=== PATIENT | male | born 1950 | race Caucasian/White ===

== ENCOUNTER → 2017-06-22 12:35 | Outpatient (CLI) | payer MEDICARE, SELFPAY ==
--- NOTE | 2017-06-22 12:38 | VDLE_ITS ---
Version 2 Reason For Study: F/U DVT RIGHT LEFT GSV is normal. GSV is normal. CFV is compressible, spontaneous, phasic, CFV is compressible, spontaneous, phasic, competent and demonstrates normal competent, and demonstrates normal augmentation. augmentation. FV is compressible, spontaneous, phasic, FV, POP V, T/P trunk and Gastroc veins are competent and demonstrates normal partially compressible with bright augmentation. intraluminal echoes consistant with chronic POP V is compressible, spontaneous, phasic, clot. competent and demonstrates normal PTV is compressible. augmentation. LT PerV is compressible. T/P Trunk is compressible. PTV is compressible. RT PerV is compressible. Procedure Exam performed in department. Interpretation Summary Deep veins of the right lower extremity are patent and compressible segmentally. There is no evidence of right lower extremity deep vein thrombosis. Valvular competence appears intact within the proximal deep venous system on the right . Chronic venous changes are noted in the left femoral vein, popliteal vein, tibio-peroneal trunk, and gastrocnemius vein, which are partially compressible and demonstrate bright intraluminal echogenicity. The remainder of the left lower extremity deep venous system is patent and compressible. The left common femoral vein is competent. The greater saphenous veins appear bilaterally patent and compressible segmentally. There has been resolution of the acute deep vein thrombosis in the right lower extremity since a prior study on 03/17/2017. Ordering Physician: Francisco Javier Neal Referring Physician: Francisco Javier Neal Performed By: Raquel Ward RVT
== END ==
PROVIDERS: Family Provider Family Medicine; PCP Family Medicine; Visit Provider Surgery
DX: M79.89 Other specified soft tissue disorders (principal); I83.10 Varicose veins of unspecified lower extremity with inflammation; M79.604 Pain in right leg; M79.605 Pain in left leg; Z86.718 Personal history of other venous thrombosis and embolism
CPT/HCPCS: 93970

== ENCOUNTER → 2017-07-02 14:34 | Outpatient (CLI) | payer MEDICARE, SELFPAY ==
--- NOTE | 2017-07-02 13:17 | LES_PTH ---
PATIENT: RUI DUFFY LOC: [facility] U#:[id number] AGE/SX: 74/M ROOM: RE07/02/[address]: Dr. Erlin Dutta MD : 1950 BED: DIS: SPEC #: [id number] RECD: 07/02/17 15:39 STATUS: HORTENSIA DAVISMegan #: [id number] JOSE: 07/02/17 13:[address]: Erlin Dutta DEPT: SURGICAL PATHOLOGY RECD BY: Vinicius Em ENTERED: 07/05/17 09:11 SP TYPE: Lesion OTHR DR: Dr. Ellis Gonzalez MD Tissues: Skin of back, NOS Procedures: Surgery Specimen Level III HEADER OPERATION: Excision of back skin lesion PRE-OP DIAGNOSIS: Back skin lesion TISSUE SUBMITTED: Back skin lesion MICROSCOPIC DIAGNOSIS Back skin lesion, biopsy: Epidermal inclusion cyst. SJ:kasi 07/06/17 MICROSCOPIC DESCRIPTION Slides are reviewed. GROSS DESCRIPTION Received in fixative is one container labeled with the patient's name and designated back skin lesion. The specimen consists of an irregular piece of soft tissue measuring 2 x 1 x 0.5 cm. The specimen is inked, bisected and submitted entirely in one cassette. / SJ:kasi 07/05/17 TC:5 CPT: 62205
== END ==
PROVIDERS: Family Provider Family Medicine; PCP Family Medicine; Visit Provider Surgery
DX: L72.0 Epidermal cyst (principal)
CPT/HCPCS: 88304; 88305

== ENCOUNTER → 2017-11-30 08:05 | Outpatient (CLI) | payer MEDICARE, SELFPAY ==
[2017-11-30 11:29] LABS: BUN 17 mg/dL (7-18); Glucose 129 mg/dL (74-106)
[2017-11-30 11:30] LABS: Anion Gap 9 (5-15); BUN/Creat Ratio 13.1 RATIO (10-20); Chloride 105 mmol/L (98-107); EST Glomerular Filtration Rate 58 mL/min (>60); Est Glom Filt Rate - Afr Amer 71 mL/min (>60); Sodium Level 141 mmol/L (136-145)
== END ==
PROVIDERS: Family Provider Family Medicine; PCP Family Medicine; Visit Provider Family Medicine
DX: Z00.00 Encounter for general adult medical examination without abnormal findings (principal); Z12.5 Encounter for screening for malignant neoplasm of prostate
CPT/HCPCS: 36415; 80048; 84153; G0103

== ENCOUNTER → 2018-04-28 08:48 | Outpatient (CLI) | payer MEDICARE, SELFPAY ==
--- NOTE | 2018-04-29 12:17 | PFT ---
INTRODUCTION: The patient is a 67-year-old male that presents for pulmonary function studies secondary to a diagnosis of COPD. Respiratory therapy reports good patient effort. Bronchodilators were used during testing. INTERPRETATION: Forced expiration spirometry demonstrates no evidence of a large airways obstructive ventilatory defect. There was no significant response to aerosolized bronchodilators. Spirograms are of good quality and plateau normally. The patient's flow volume loop reveals flattening of the inspiratory limb, which could be secondary to a variable extrathoracic process. Body plethysmography was performed and revealed lung volumes to be within normal limits. Diffusing capacity by single breath CO is also within normal limits. IMPRESSION: These pulmonary function studies are essentially within normal limits. There is, however, flattening of the inspiratory limb of the flow volume loop, which could be suggestive of a variable extrathoracic process. Clinical correlation is recommended.
== END ==
PROVIDERS: Family Provider Family Medicine; PCP Family Medicine; Referring Provider Internal Medicine Critical Care Medicine; Visit Provider Internal Medicine Critical Care Medicine
DX: R06.00 Dyspnea, unspecified (principal)
CPT/HCPCS: 94060; 94726; 94729

== ENCOUNTER → 2018-07-05 06:28 | Outpatient (CLI) | payer MEDICARE, SELFPAY ==
[2018-05-25 07:52] VITALS: BMI 25.3
--- NOTE | 2018-07-05 10:30 | STRESSREP_ITS ---
Stress Test Report Exercise myocardial perfusion stress test. 67-year-old man with a history of chest pain. Medications Fish oil aspirin Xarelto. Stress protocol: Resting EKG demonstrates normal sinus rhythm with a rate of 67 bpm normal intervals are noted occasional premature ventricular complexes present. Resting blood pressure 120/82 mmHg. The patient exercised according to regular Jim protocol for total duration of 8 minutes patient completed 2 minutes into stage III of the Jim protocol. The maximum heart rate attained was 146 bpm which wa s 96% of maximum predicted heart rate the maximum workload was 10.1 metabolic equivalents. At rest there were no ST or T wave changes noted suggest ischemia at peak exercise upsloping ST changes only were noted with no meet the criteria for ischemia. No clinical angina was noted the test was terminated due to leg fatigue. The resting blood pressure was 120/82 mmHg and a peak of 160/72 mmHg rate pressure product was 23,300. Myocardial perfusion protocol. 14.1 mCi of technetium 99m sestamibi was injected at rest. The patient exercised per Jim protocol at peak exercise 43.8 mCi of technetium 99m sestamibi was injected stress images were obtained stress and rest images were reconstructed and compared in the short axis vertical long horizontal long axis. Gated images were also obtained Perfusion SPECT analysis: Review of the stress images demonstrate normal uptake of tracer noted in all areas of the myocardium except for the inferior wall from base to mid segment. Demonstrated reduced perfusion on the stress and rest images to a similar extent. The above is suggestive of a previous inferior infarct. GI attenuation artifact cannot be completely excluded. Gated SPECT analysis: The gated ejection fraction is noted to be 67% with no wall motion abnormalities present. Conclusion: Exercise myocardial perfusion stress test with no obvious ischemia noted. Previous inferior infarct cannot be completely excluded.
== END ==
PROVIDERS: Family Provider Family Medicine; PCP Family Medicine; Referring Provider Family Medicine; Visit Provider Family Medicine
DX: R07.9 Chest pain, unspecified (principal)
CPT/HCPCS: 78452; 93017; A9500; A4216

== ENCOUNTER → 2019-03-07 09:21 | Outpatient (CLI) | payer MEDICARE, SELFPAY ==
[2018-05-25 07:52] VITALS: BMI 25.3
[2019-03-07 13:10] LABS: Anion Gap 5 (5-15); BUN 19 mg/dL (7-18); BUN/Creat Ratio 13.7 RATIO (10-20); Chloride 106 mmol/L (98-107); Cholesterol 168 mg/dL (200); Creatinine, Serum 1.39 mg/dL (0.70-1.30); EST Glomerular Filtration Rate 54 mL/min (>60); Est Glom Filt Rate - Afr Amer 65 mL/min (>60); Glucose 119 mg/dL (74-106); High Density Lipoprotein 32 mg/dL; PSA,Total - Annual Screen 1.28 ng/mL (0.00-4.00); Potassium 4.1 mmol/L (3.5-5.1); Sodium Level 139 mmol/L (136-145); Triglycerides 356 mg/dL; Very Low Density Lipoprotein 71 mg/dL (5-40)
== END ==
PROVIDERS: Family Provider Family Medicine; PCP Family Medicine; Referring Provider Family Medicine; Visit Provider Family Medicine
DX: Z00.00 Encounter for general adult medical examination without abnormal findings (principal); R07.9 Chest pain, unspecified; N40.0 Benign prostatic hyperplasia without lower urinary tract symptoms; Z12.5 Encounter for screening for malignant neoplasm of prostate
CPT/HCPCS: 36415; 80048; 80061; 84153; G0103

== ENCOUNTER 2019-06-19 07:54 | Day surgery (SDC) | payer MEDICARE, SELFPAY ==
[2019-06-07 08:05] VITALS: BMI 25.3
--- NOTE | 2019-06-07 08:09 | HP_ITS ---
Intake Vital Signs 06/07/19 BMI 25.3 06/07/19 Height 6 ft 3 in 06/07/19 Weight: 200 lb 06/07/19 BMI 25.0 06/07/19 BP 141/87 H 06/07/19 Blood Pressure Location Rt brachial 06/07/19 Position Sitting 06/07/19 Respiration 18 Intake Visit Reasons: cscope, blood clots Chief Complaint: Review test results Pediatric Speech Therapist Required: No Is patient in pain?: No Allergies gemfibrozil [From Lopid] Allergy (Severe, Verified 06/07/19 08:04) Unknown niacin [From Niaspan Extended-Release] Allergy (Severe, Verified 06/07/19 08:04) Unknown hydrocodone [From Vicodin] Allergy (Verified 06/07/19 08:04) Hives oxycodone [From Percocet] Allergy (Verified 06/07/19 08:04) Hives rosuvastatin [From Crestor] Adverse Reaction (Verified 06/07/19 08:04) Nausea Medications Multivitamins,Therapeutic [Multivitamin] 1 tab PO DAILY 02/10/16 [History Confirmed 06/07/19] aspirin 81 mg tablet,delayed release 81 mg PO QDAY 05/14/17 [History Confirmed 06/07/19] rivaroxaban 20 mg tablet 20 mg PO QDAY 06/12/17 [History Confirmed 06/07/19] vitamin B complex 1 tab PO DAILY 05/25/18 [History Confirmed 06/07/19] [facility] Medical History Impotence (Chronic) Peyronie's disease (Chronic) Hematuria (Acute) Rosacea (Chronic) Hyperglyceridemia (Acute) 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) Fatigue (Acute) Dyspnea (Chronic) Cough (Acute) Hypokalemia (Acute) Right ventricular dilation (Resolved) Mild concentric left ventricular hypertrophy (LVH) (Chronic) Spleen enlarged (Acute) Left leg DVT (Acute) Pulmonary embolism (Resolved) BPH (benign prostatic hyperplasia) (Chronic) Hilar adenopathy (Resolved) Mediastinal adenopathy (Resolved) Surgical History History of left knee surgery (Resolved) History of right knee surgery (Resolved) History of shoulder surgery (Resolved) History of hernia repair (Resolved) History of back surgery (Resolved) Family History Brother Heart disease A-fib Sister DVT (deep venous thrombosis) Social History (Updated 06/07/19 @ 08:09 by Erlin Dutta MD) Smoking Status: Never smoker Electronic Cigarette Use: not used second hand exposure: No alcohol intake: never substance use type: does not use caffeine: Yes what type of physical activity do you participate in: walking frequency: 3-4 times per week duration: 15-30 minutes/day seatbelt use: always HPI HPI HPI: RUI DUFFY, is a 68 M who presents to the office today for HPI HPI Surgical H&P: Yes HPI: RUI DUFFY, is a 68 M who presents to the office today for Evaluation for endoscopy. I last performed his screening colonoscopy on 01/12/2008. It was entirely negative he had no polyps no hemorrhoids and a smooth and small prostate. He has not been having any difficulties with his bowel movements his weight is been stable he has not noticed any blood. And he has no family history of colon cancer. The patient is on Xarelto and baby aspirin for history of blood clots in his legs but he has been able to been off of this in the past. ROS General General: No weight change, appetite, fatigue, colon cancer, breast cancer or weakness HEENT HEENT: No difficulty swallowing, eye injury, eye surgery, swollen glands or hoarseness Endo Endocrine: No thyroid disease, diabetes mellitus, thyroid cancer, Hair loss, heat intolerance or cold intolerance Skin Skin: No rash or changing moles Breast Breast: No left breast lump, right breast lump, nipple discharge, breast pain, abnormal mammogram, abnormal US or breast enlargement Musc Musculoskeletal: No back problems, arthritis, rheumatoid arthritis, gout or joint pain Cardio Cardiovascular: No murmur, pacemaker, heart disease, atrial fibrillation, high blood pressure, heart attack, heart stent, palpitations, shortness of breat with exertion or chest pain Psych Psychiatric: No depression, anxiety or hearing voices Resp Respiratory: No shortness of breath, No sleep apnea, No cough, No COPD, No asthma, No emphysema, No wheezing Gastro Gastrointestinal: No abdominal pain, No nausea or vomiting, No diarrhea, No constipation, No blood in stool, No acid reflux, No hemorrhoids, No ulcers, No gallbladder problem, No black,tarry stools Tee Hematologic: Yes blood thinners, No blood disorders, No bleeding, No anemia, Yes blood clots Neuro Neurologic: No system reviewed and no additional complaints, except as docu, No as per HPI, No abnormal walking, No abnormal hearing, No abnormal movements, No abnormal speech, No behavioral changes, No burning sensations, No confusion, No seizure-like activity, No unsteadiness, No dizziness, No localized weakness, No frequent falls, No headache(s), No lack of coordination, No loss of vision, No memory loss, Yes numbness, No other visual disturbances, No radiating pain, No restless legs, No sensory deficit, No fainting, Yes tingling, No tremor(s), No weakness, No other Exam Const General: no acute distress, well developed, well hydrated Orientation: oriented to person, oriented to place, oriented to time [facility] Head: normocephalic, atraumatic Ears: external ears normal Mouth: moist mucous membranes Eyes Sclera: sclerae normal Pupils: normal by confrontation Neck Neck: no lymphadenopathy noted Neck mass: No Thyroid: thyroid normal, symmetrical Chest Chest palpation & inspection: normal inspection of the chest Breast Palpation: No nipple discharge Resp Effort & Inspection: normal respiratory effort Auscultation: clear to auscultation bilaterally Percussion: percussion normal Cardio Rate: regular rate Rhythm: regular rhythm Heart Sounds: no murmurs GI Palpation: soft, no hepatosplenomegaly, no masses, nontender Rectal Exam: other Other: Rectal exam deferred. Extrem General: normal to inspection, no clubbing, cyanosis or edema Assessment & Plan Problems 1. Encounter for screening colonoscopy Z12.11 Plan I have discussed the above with the patient. I have offered the patient colonoscopy for evaluation. I have explained the risks/benefits of the procedure and described the procedure. I have discussed the risks with the patient, including but not limited to: infection, bleeding, perforation of the GI tract requiring emergency surgery, inability to complete the procedure, injury to any internal organs, complications of anesthesia, etc. - the patient understands and agrees to proceed. I have answered all the patient's questions to the patient's satisfaction and the patient has no further questions. The patient has been given instructions for the colon cleansing preparation. Coding Level of Care Code Off vis,new,level 3 Diagnoses Encounter for screening colonoscopy Z12.11 06/07/19 0809 <Electronically signed by Erlin engle MD> Date _ Erlin Dutta MD
[2019-06-19 08:15] VITALS: BP 130/98; PULSE 106; RESP 16; TEMP 36.3; O2SAT 96; BMI 24.9
[2019-06-19] MEDS: Lactated Ringers 1,000 ML 100 ML IV (08:35)
--- NOTE | 2019-06-19 09:00 | COLBX_PTH ---
PATIENT: RUI DUFFY LOC: [facility] U#:[id number] AGE/SX: 68/M ROOM: RE06/19/[address]: Dr. Erlin Dutta MD : 1950 BED: DIS: 06/19/2019 SPEC #: [id number] RECD: 06/19/19 09:46 STATUS: HORTENSIA SONU #: [id number] JOSE: 06/19/19 09:[address]: Erlin Dutta DEPT: SURGICAL PATHOLOGY RECD BY: Ivan Jesus ENTERED: 06/19/19 10:54 SP TYPE: COLON BX OTHR DR: Dr. Ellis Gonzalez MD Tissues: Ascending colon Procedures: Surgery Specimen Level IV HEADER OPERATION: Colonoscopy (MAC) PRE-OP DIAGNOSIS: Screening TISSUE SUBMITTED: Ascending colon polyp MICROSCOPIC DIAGNOSIS Ascending colon polyp, biopsy: Fragments of tubular adenoma. Fecal debris. AM:kasi 06/20/19 MICROSCOPIC DESCRIPTION Slides are reviewed. GROSS DESCRIPTION Received in fixative is one container labeled with the patient's name and designated ascending colon polyp. The specimen consists of multiple irregular fragments of light toth soft tissue that in aggregate measure 1 x 0.3 x 0.1 cm. The specimen is totally submitted in one cassette. / AM:kasi 06/19/19 TC:5 CPT: 86653
--- NOTE | 2019-06-19 09:02 | PCM.HP.BLA ---
History and Physical Date of Admission: 06/19/19 [facility] Medical Records Department [address] [place] [address] History and Physical 06/07/19 0809 MR#: [id number] Acct: [id number] Name: RUI DUFFY Rep #: [id number] : 1950 68 From: Erlin Dutta MD PCP: Ellis Gonzalez MD [place] [facility] [place] Intake Vital Signs 06/07/19 BMI 25.3 06/07/19 Height 6 ft 3 in 06/07/19 Weight: 200 lb 06/07/19 BMI 25.0 06/07/19 BP 141/87 H 06/07/19 Blood Pressure Location Rt brachial 06/07/19 Position Sitting 06/07/19 Respiration 18 Intake Visit Reasons: cscope, blood clots Chief Complaint: Review test results Tree Trimming Line Technician Required: No Is patient in pain?: No Allergies gemfibrozil [From Lopid] Allergy (Severe, Verified 06/07/19 08:04) Unknown niacin [From Niaspan Extended-Release] Allergy (Severe, Verified 06/07/19 08:04) Unknown hydrocodone [From Vicodin] Allergy (Verified 06/07/19 08:04) Hives oxycodone [From Percocet] Allergy (Verified 06/07/19 08:04) Hives rosuvastatin [From Crestor] Adverse Reaction (Verified 06/07/19 08:04) Nausea Medications Multivitamins,Therapeutic [Multivitamin] 1 tab PO DAILY 02/10/16 [History Confirmed 06/07/19] aspirin 81 mg tablet,delayed release 81 mg PO QDAY 05/14/17 [History Confirmed 06/07/19] rivaroxaban 20 mg tablet 20 mg PO QDAY 06/12/17 [History Confirmed 06/07/19] vitamin B complex 1 tab PO DAILY 05/25/18 [History Confirmed 06/07/19] [facility] Medical History Impotence (Chronic) Peyronie's disease (Chronic) Hematuria (Acute) Rosacea (Chronic) Hyperglyceridemia (Acute) 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) Fatigue (Acute) Dyspnea (Chronic) Cough (Acute) Hypokalemia (Acute) Right ventricular dilation (Resolved) Mild concentric left ventricular hypertrophy (LVH) (Chronic) Spleen enlarged (Acute) Left leg DVT (Acute) Pulmonary embolism (Resolved) BPH (benign prostatic hyperplasia) (Chronic) Hilar adenopathy (Resolved) Mediastinal adenopathy (Resolved) Surgical History History of left knee surgery (Resolved) History of right knee surgery (Resolved) History of shoulder surgery (Resolved) History of hernia repair (Resolved) History of back surgery (Resolved) Family History Brother Heart disease A-fib Sister DVT (deep venous thrombosis) Social History (Updated 06/07/19 @ 08:09 by Erlin Dutta MD) Smoking Status: Never smoker Electronic Cigarette Use: not used second hand exposure: No alcohol intake: never substance use type: does not use caffeine: Yes what type of physical activity do you participate in: walking frequency: 3-4 times per week duration: 15-30 minutes/day seatbelt use: always HPI HPI HPI: RUI DUFFY, is a 68 M who presents to the office today for HPI HPI Surgical H&P: Yes HPI: RUI DUFFY, is a 68 M who presents to the office today for Evaluation for endoscopy. I last performed his screening colonoscopy on 01/12/2008. It was entirely negative he had no polyps no hemorrhoids and a smooth and small prostate. He has not been having any difficulties with his bowel movements his weight is been stable he has not noticed any blood. And he has no family history of colon cancer. The patient is on Xarelto and baby aspirin for history of blood clots in his legs but he has been able to been off of this in the past. ROS General General: No weight change, appetite, fatigue, colon cancer, breast cancer or weakness HEENT HEENT: No difficulty swallowing, eye injury, eye surgery, swollen glands or hoarseness Endo Endocrine: No thyroid disease, diabetes mellitus, thyroid cancer, Hair loss, heat intolerance or cold intolerance Skin Skin: No rash or changing moles Breast Breast: No left breast lump, right breast lump, nipple discharge, breast pain, abnormal mammogram, abnormal US or breast enlargement Musc Musculoskeletal: No back problems, arthritis, rheumatoid arthritis, gout or joint pain Cardio Cardiovascular: No murmur, pacemaker, heart disease, atrial fibrillation, high blood pressure, heart attack, heart stent, palpitations, shortness of breat with exertion or chest pain Psych Psychiatric: No depression, anxiety or hearing voices Resp Respiratory: No shortness of breath, No sleep apnea, No cough, No COPD, No asthma, No emphysema, No wheezing Gastro Gastrointestinal: No abdominal pain, No nausea or vomiting, No diarrhea, No constipation, No blood in stool, No acid reflux, No hemorrhoids, No ulcers, No gallbladder problem, No black,tarry stools Tee Hematologic: Yes blood thinners, No blood disorders, No bleeding, No anemia, Yes blood clots Neuro Neurologic: No system reviewed and no additional complaints, except as docu, No as per HPI, No abnormal walking, No abnormal hearing, No abnormal movements, No abnormal speech, No behavioral changes, No burning sensations, No confusion, No seizure-like activity, No unsteadiness, No dizziness, No localized weakness, No frequent falls, No headache(s), No lack of coordination, No loss of vision, No memory loss, Yes numbness, No other visual disturbances, No radiating pain, No restless legs, No sensory deficit, No fainting, Yes tingling, No tremor(s), No weakness, No other Exam Const General: no acute distress, well developed, well hydrated Orientation: oriented to person, oriented to place, oriented to time [facility] Head: normocephalic, atraumatic Ears: external ears normal Mouth: moist mucous membranes Eyes Sclera: sclerae normal Pupils: normal by confrontation Neck Neck: no lymphadenopathy noted Neck mass: No Thyroid: thyroid normal, symmetrical Chest Chest palpation & inspection: normal inspection of the chest Breast Palpation: No nipple discharge Resp Effort & Inspection: normal respiratory effort Auscultation: clear to auscultation bilaterally Percussion: percussion normal Cardio Rate: regular rate Rhythm: regular rhythm Heart Sounds: no murmurs GI Palpation: soft, no hepatosplenomegaly, no masses, nontender Rectal Exam: other Other: Rectal exam deferred. Extrem General: normal to inspection, no clubbing, cyanosis or edema Assessment & Plan Problems 1. Encounter for screening colonoscopy Z12.11 Plan I have discussed the above with the patient. I have offered the patient colonoscopy for evaluation. I have explained the risks/benefits of the procedure and described the procedure. I have discussed the risks with the patient, including but not limited to: infection, bleeding, perforation of the GI tract requiring emergency surgery, inability to complete the procedure, injury to any internal organs, complications of anesthesia, etc. - the patient understands and agrees to proceed. I have answered all the patient's questions to the patient's satisfaction and the patient has no further questions. The patient has been given instructions for the colon cleansing preparation. Coding Level of Care Code Off vis,new,level 3 Diagnoses Encounter for screening colonoscopy Z12.11 06/07/19808 <Electronically signed by Erlin Dutta MD> Date Erlin Dutta MD 06/08/19 1036 <Electronically signed by Erlin Dutta MD> Date: Time: Erlin Dutta MD CC: Erlin Dutta MD; Ellis Gonzalez MD ~ Date Dictated: 06/07/19808 Date Transcribed: 06/07/19 1129 Icing Mixer: NR Signed I have re-examined the patient. There are no clinical changes since date of exam.
--- NOTE | 2019-06-19 09:34 | OP.COLON_ITS ---
Patient Name: Francisco Javier Obrien Procedure Date: 06/19/2019 9:09 AM Date of : 1950 Age: 68 Procedure: Colonoscopy Indications: Screening for colorectal malignant neoplasm Providers: Erlin Dutta MD Referring MD: Ellis Gonzalez MD Medicines: See the Anesthesia note for documentation of the administered medications Patient Profile: This is a 68 year old male. Refer to note in patient chart for documentation of history and physical. Last Colonoscopy: December 2007. Complications: No immediate complications. Procedure: Pre-Anesthesia Assessment: - Prior to the procedure, a History and Physical was performed, and patient medications and allergies were reviewed. The patient's tolerance of previous anesthesia was also reviewed. The risks and benefits of the procedure and the sedation options and risks were discussed with the patient. All questions were answered, and informed consent was obtained. Prior Anticoagulants: The patient has taken Xarelto (rivaroxaban), last dose was 7 days prior to procedure. ASA Grade Assessment: III - A patient with severe systemic disease. After reviewing the risks and benefits, the patient was deemed in satisfactory condition to undergo the procedure. After I obtained informed consent, the scope was passed under direct vision. Throughout the procedure, the patient's blood pressure, pulse, and oxygen saturations were monitored continuously. The colonoscope was introduced through the anus and advanced to the cecum, identified by appendiceal orifice and ileocecal valve. The colonoscopy was performed without difficulty. The patient tolerated the procedure well. The quality of the bowel preparation was good. Scope In: 9:20:03 AM Scope Withdrawal Time 0 hours 7 minutes 0 seconds Scope Out: 9:30:08 AM Total Procedure Duration Time 0 hours 10 minutes 5 seconds Findings: A 5 mm polyp was found in the ascending colon. The polyp was sessile. The polyp was removed with a hot snare. Resection and retrieval were complete. Multiple small-mouthed diverticula were found in the sigmoid colon. Non-bleeding internal hemorrhoids were found during retroflexion. The exam was otherwise without abnormality. Impression: - One 5 mm polyp in the ascending colon, removed with a hot snare. Resected and retrieved. - Diverticulosis in the sigmoid colon. - Non-bleeding internal hemorrhoids. - The examination was otherwise normal. Recommendation: - Discharge patient to home. - Resume previous diet. - Continue present medications. - Await pathology results. - Repeat colonoscopy in 5 years for surveillance. - Return to my office in 1 week. Procedure Code(s): --- Professional --- 38976, Colonoscopy, flexible; with removal of tumor(s), polyp(s), or other lesion(s) by snare technique Diagnosis Code(s): --- Professional --- Z12.11, Encounter for screening for malignant neoplasm of colon D12.2, Benign neoplasm of ascending colon K64.8, Other hemorrhoids K57.30, Diverticulosis of large intestine without perforation or abscess without bleeding CPT copyright 2017 [employer]. All rights reserved. The codes documented in this report are preliminary and upon school coordinator review may be revised to meet current compliance requirements. MD Erlin Frazier MD 06/19/2019 9:34:11 AM This report has been signed electronically. Number of Addenda: 0 Note Initiated On: 06/19/2019 9:09 AM
--- NOTE | 2019-06-19 09:34 | OP.CCLET_ITS ---
06/19/2019 Ellis Gonzalez MD [address] [place] [address] Re : Colonoscopy procedure for Francisco Javier Obrien Dear Dr. Gonzalez This procedure was performed on Wednesday, June 19, 2019. My impressions and recommendations are as follows: Impressions : - One 5 mm polyp in the ascending colon, removed with a hot snare. Resected and retrieved. - Diverticulosis in the sigmoid colon. - Non-bleeding internal hemorrhoids. - The examination was otherwise normal. Recommendations : - Discharge patient to home. - Resume previous diet. - Continue present medications. - Await pathology results. - Repeat colonoscopy in 5 years for surveillance. - Return to my office in 1 week. My findings are described in the full procedure note, which is enclosed. If I can be of further assistance, please feel free to contact me at Doctor phone number(s): , Fax: [phone], Work: . Sincerely, MD Erlin Frazier MD 06/19/2019 9:34:11 AM This report has been signed electronically.
[2019-06-19 09:35] VITALS: BP 116/70; BP 130/98; PULSE 88; RESP 16; TEMP 36.6; O2SAT 96
[2019-06-19 09:40] VITALS: BP 130/98; BP 147/89; PULSE 85; RESP 16; O2SAT 97
[2019-06-19 10:02] VITALS: BP 130/98; BP 138/95; PULSE 81; RESP 16; TEMP 36.3; O2SAT 100
[2019-06-19 10:23] VITALS: BP 130/98
== END 2019-06-19 10:32 | disposition home or self-care (01) ==
LOC: EN 07:54 → AC 07:56
PROVIDERS: PCP Family Medicine; Referring Provider Family Medicine; Visit Provider Surgery
PROC: 0DJD8ZZ Inspection of Lower Intestinal Tract, Via Natural or Artificial Opening Endoscopic (ICD-10-PCS; CPT 45378; principal; 2019-06-19 08:55)
DX: Z12.11 Encounter for screening for malignant neoplasm of colon (principal); D12.2 Benign neoplasm of ascending colon; K64.8 Other hemorrhoids; K57.30 Diverticulosis of large intestine without perforation or abscess without bleeding; Z79.01 Long term (current) use of anticoagulants; Z79.82 Long term (current) use of aspirin; Z86.718 Personal history of other venous thrombosis and embolism; Z88.5 Allergy status to narcotic agent
CPT/HCPCS: 45385; 88305; J7120; J1610; J2405

== ENCOUNTER → 2019-09-21 12:42 | Outpatient (CLI) | payer MEDICARE, SELFPAY ==
--- NOTE | 2019-09-21 12:57 | VDLE_ITS ---
Reason For Study: Chronic venous insufficiency RIGHT LEFT CFV is compressible, spontaneous, phasic, CFV is compressible, spontaneous, phasic, competent and demonstrates normal competent, and demonstrates normal augmentation. augmentation. FV is compressible, spontaneous, phasic, FV is compressible, spontaneous, phasic, competent and demonstrates normal competent and demonstrates normal augmentation. augmentation. POP V is compressible, spontaneous, phasic, POP V is compressible, spontaneous, phasic, competent and demonstrates normal competent and demonstrates normal augmentation. augmentation. T/P Trunk is compressible. T/P Trunk is compressible. PTV is compressible. PTV is compressible. RT PerV is compressible. LT PerV is compressible. SFJ is competent and measures 0.73 x 0.75 cm. Left FV, PopV are partially compressible with GSV proximal thigh measures 0.45 x 0.44 cm. bright intraluminal echoes noted consistent GSV at knee measures 0.50 x 0.51 cm. with chronic DVT. GSV INCOMPETENT throughout for greater than Thrombus filled varicose vein noted in the 0.5 seconds. anterior knee area. ASV proximal calf is INCOMPETENT for greater INCOMPETENT motor vehicle compliance analyst noted 12 cm above than 0.5 seconds and measures 0.42 x 0.47 cm. medial malleolus. SSV at junction is INCOMPETENT for greater SFJ is competent and measures 0.88 x 0.90 cm. than 0.5 seconds and measures 0.41 x 0.42 cm. GSV proximal thigh measures 0.61 x 0.63 cm. Procedure GSV above knee is INCOMPETENT for greater Exam performed in department. than 0.5 seconds. A preliminary report was called and/or faxed GSV at knee measures 0.70 x 0.71 cm. to Neal. GSV below knee is competent. SSV at junction is INCOMPETENT for greater than 0.5 seconds and measures 0.39 x 0.37 cm. Interpretation Summary Deep veins of the lower extremities are bilaterally patent and compressible segmentally. There is no evidence of deep vein thrombosis on either side. Valvular competence appears intact within the proximal deep venous systems bilaterally. The great saphenous veins appear bilaterally patent and compressible segmentally. Chronic venous changes are noted in the left femoral vein and popliteal vein, which are partially compressible and demonstrate bright intraluminal echogenicity. Sapheno- femoral junctions are bilaterally competent . The right great saphenous vein appears segmentally incompetent. The left great saphenous vein appears incompetent above the knee. The left great saphenous vein appears competent below the knee. Small saphenous veins are patent and incompetent bilaterally. The right accessory saphenous vein in the proximal calf is incompetent. An incompetent motor vehicle compliance analyst vein is noted in the left calf, located 12 centimeters proximal to the left medial malleolus. A thrombus-filled superficial varicosity is noted in the left anterior knee area. Ordering Physician: Francisco Javier Neal Referring Physician: Ellis Gonzalez Performed By: Santa Lopez RVT
== END ==
PROVIDERS: PCP Family Medicine; Referring Provider Surgery; Visit Provider Surgery
DX: I87.2 Venous insufficiency (chronic) (peripheral) (principal); I83.12 Varicose veins of left lower extremity with inflammation; I83.11 Varicose veins of right lower extremity with inflammation; I87.023 Postthrombotic syndrome with inflammation of bilateral lower extremity; I80.03 Phlebitis and thrombophlebitis of superficial vessels of lower extremities, bilateral
CPT/HCPCS: 93970

== ENCOUNTER → 2020-02-27 07:48 | Outpatient (CLI) | payer MEDICARE, SELFPAY ==
--- NOTE | 2020-02-27 07:51 | VDLE_ITS ---
Reason For Study: DVT RIGHT LEFT GSV is normal. GSV is normal. CFV is compressible, spontaneous, phasic, CFV is compressible, spontaneous, phasic, competent and demonstrates normal competent, and demonstrates normal augmentation. augmentation. FV is compressible, spontaneous, phasic, FV is compressible, spontaneous, phasic, competent and demonstrates normal competent and demonstrates normal augmentation. augmentation. POP V is compressible, spontaneous, phasic, POP V is compressible, spontaneous, phasic, competent and demonstrates normal competent and demonstrates normal augmentation. augmentation. T/P Trunk is compressible. T/P Trunk is compressible. PTV is compressible. PTV is compressible. RT PerV is compressible. LT PerV is compressible. Procedure Left FV, PopV are partially compressible with This is a venous duplex using B-mode, color bright intraluminal echoes noted consistent flow and spectral Doppler. with chronic DVT. Exam performed in department. Varicose vein in the anterior knee area is A preliminary report was called and/or faxed filled with bright intraluminal echoes to Ángel. consistent with chronic SVT. Vessel is small in size as compared to 09/21/2019. Interpretation Summary Deep veins of the lower extremities are bilaterally patent and compressible segmentally. There is no evidence of deep vein thrombosis on either side. Valvular competence appears intact within the proximal deep venous systems bilaterally. The great saphenous veins appear bilaterally patent and compressible segmentally. Chronic venous changes are noted in the left femoral vein and popliteal vein, which are partially compressible and demonstrate bright intraluminal echogenicity, and unchanged from a prior study on 09/21/2019. Chronic venous changes are noted involving a superficial varicosity near the left anterior knee. The acute superficial thrombophlebitis near the left anterior knee, which was previously noted on a prior study on 09/21/2019, appears to have resolved, leaving residual chronic changes. Ordering Physician: Francisc oJavier Neal Referring Physician: Ellis Gonzalez Performed By: Santa Lopez RVT
== END ==
PROVIDERS: PCP Family Medicine; Referring Provider Surgery; Visit Provider Surgery
DX: I83.10 Varicose veins of unspecified lower extremity with inflammation (principal); Z86.718 Personal history of other venous thrombosis and embolism
CPT/HCPCS: 93970

== ENCOUNTER 2021-09-08 12:26 | Inpatient (IN) | payer MEDICARE, SELFPAY ==
[2021-09-08] VITALS (23 sets, daily range): BP systolic 79–158; BP diastolic 52–125; PULSE 69–133; RESP 11–28; TEMP 36.4–37.1; O2SAT 93–199; BMI 26.1; BMI 24.7
--- NOTE | 2021-09-08 12:40 | EDS_ITS ---
HPI History of Present Illness Chief Complaint: Syncope Informant: patient Onset/Context/Timing Onset: Today Context: Sudden Onset Timing: Intermittent Quality: Syncopal episode Location: Generalized Worsened by: Standing Relieved by: Nothing Narrative Narrative: Patient presents with a syncopal episode that occurred today. Patient states he actually had 2 syncopal episodes today. Patient states that he felt weak while he was driving. Patient states that he pulled over and was walking around the car so that his could drive the car when he passed out. Patient states he fell to his knees. Patient was able to get back up and sit in the passenger seat. Patient states he passed out again while in the passenger seat. Patient denies any palpitations. Patient states he had 3 bowel movements today which were bloody. Patient states it was red blood. Patient is on Xarelto for chronic DVT. Patient states she was having some nausea and vomited in the back of the ambulance. Patient denies any nausea or abdominal pain currently. Patient states that yesterday he was working in his garden and he felt short of breath with this. Patient had a recent COVID-19 booster 2 days ago. Patient had a temperature of 100.2 after this. Patient denies any chest p ain. 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 Cough Dyspnea Fatigue Hematuria Hilar adenopathy Hyperglyceridemia Hypokalemia Impotence Left leg DVT Mediastinal adenopathy Mild concentric left ventricular hypertrophy (LVH) Peyronie's disease Pulmonary embolism Right ventricular dilation Rosacea Spleen enlarged Home Medications multivitamin with folic acid 1 tab PO DAILY 02/10/16 [History Last Taken 09/08/21 08:30] aspirin 81 mg tablet,delayed release 81 mg PO DAILY 05/14/17 [History Last Taken 09/08/21 08:30] rivaroxaban 20 mg tablet 20 mg PO DAILY@1800 06/12/17 [History Last Taken 09/07/21] acetaminophen 1,000 mg PO Q6H PRN 09/08/21 [History Last Taken 09/07/21 22:00] Allergy/AdvReac Type Severity Reaction Status Date / Time gemfibrozil [From Lopid] Allergy Severe Unknown Verified 07/17/20 14:28 niacin Allergy Severe Unknown Verified 07/17/20 14:28 [From Niaspan Extended-Release] rosuvastatin [From Crestor] AdvReac Nausea Verified 07/17/20 14:28 Family History Brother Heart disease A-fib Sister DVT (deep venous thrombosis) Surgical History History of back surgery History of colonoscopy (~05/2019) History of hernia repair History of left knee surgery History of right knee surgery History of shoulder surgery Social History Smoking Status: Never smoker Electronic Cigarette Use: not used second hand exposure: No alcohol intake: never substance use type: does not use caffeine: Yes what type of physical activity do you participate in: walking frequency: 3-4 times per week duration: 15-30 minutes/day seatbelt use: always ROS ROS ED Constitutional Constitutional ED: Reports fever(s); Denies chills Eyes Eyes: Denies blurry vision or change in vision ENT ENT ED: Denies rhinorrhea or sore throat Cardiovascular Cardiovascular: Denies chest pain or palpitations Respiratory/Chest Respiratory/Chest: Reports dyspnea; Denies cough Gastrointestinal Gastrointestinal: Reports nausea and vomiting Genitourinary Genitourinary ED: Denies dysuria or hematuria Musculoskeletal Musculoskeletal: Denies back pain or neck pain Integumentary Denies abscess or rash Neurologic Neurologic: Reports weakness; Denies headache(s) Allergic/Immunologic Allergic/Immunologic ED: Denies mouth swelling or urticaria EXAM Physical Exam Const Vital Signs: 09/08/21 12:27 09/08/21 12:32 Temperature 98.4 F Temperature Source Oral Pulse Rate 82 Respiratory Rate 15 Respiratory Pattern Normal Blood Pressure 121/89 H Blood Pressure Mean 99 Pulse Ox 99 Oxygen Delivery Method Room Air Positive well nourished and well developed General Appearance ED: well developed and NAD HEENT Reports moist mucous membranes Neck supple and no JVD Resp normal respiratory effort and clear to auscultation bilaterally Cardio regular rate and regular rhythm GI normal to inspection, nondistended, normoactive bowel sounds and non-tender Palpation: soft Neuro oriented x3, CN's II-XII intact bilaterally and no sensory deficits noted Sensorium / Orientation: alert Motor Exam: strength 5/5 throughout Psych mental status grossly normal MDM MDM MDM Narrative Medical decision making narrative: EKG was obtained. On my interpretation, it showed a normal sinus rhythm with a rate of 72. PA interval, QRS interval, and QTc intervals were all normal. [place] was normal. There are nonspecific ST-T wave changes. CBC was within normal limits. Pro time was 17.5. INR was 1.5. PTT was 30.6. Comprehensive metabolic profile showed a slightly elevated creatinine of 1.31. BUN was normal. Glucose was 168. Lipase was normal. High-sensitivity troponin was normal. Patient went to the bathroom and prior to going to the bathroom he had another syncopal episode. Patient started having bright red blood per rectum. Patient was placed back on the cot. Patient was taken back to his room. Patient was given IV fluids. Patient was typed and screened. Patient was ordered [facility]. Case was discussed with Dr. Mariano. He will follow-up with the patient. He recommended ordering a CTA of the abdomen and pelvis. This was ordered. Case was discussed with the hospitalist. She will admit the patient to ICU. Patient and family understood and were agreeable with the plan. All questions were answered. Lab Data Attestation: I reviewed the patient's lab results. Labs: Laboratory Results - last 24 hr 09/08/21 09/08/21 09/08/21 13:03 13:03 13:03 WBC 10.8 RBC 4.66 Hgb 13.9 Hct 42.0 MCV 90.1 MCH 29.8 MCHC 33.1 RDW Std Deviation 42.5 RDW Coeff of Rahat 13.0 Plt Count 168 MPV 10.8 Immature Gran % (Auto) 0.600 Neut % (Auto) 83.7 H Lymph % (Auto) 6.9 L [place] % (Auto) 7.6 Eos % (Auto) 0.7 Baso % (Auto) 0.5 Absolute Neuts (auto) 9.1 H Absolute Lymphs (auto) 0.75 L Nucleated RBC % 0 PT 17.5 H INR 1.5 APTT 30.6 Sodium 137 Potassium 3.9 Chloride 106 Carbon Dioxide 25.0 Anion Gap 6 BUN 15 Creatinine 1.31 H Estim Creat Clear Calc 61.82 Est GFR (MDRD) Af Amer 69 Est GFR (MDRD) Non-Af 57 L BUN/Creatinine Ratio 11.5 Glucose 168 H Calcium 8.6 Total Bilirubin 0.80 AST 26 ALT 32 Alkaline Phosphatase 70 Troponin I High Sens < 3 L Total Protein 6.9 Albumin 3.5 Globulin 3.4 Albumin/Globulin Ratio 1.0 Lipase 143 Blood Type Antibody Screen 09/08/21 13:09 WBC RBC Hgb Hct MCV MCH MCHC RDW Std Deviation RDW Coeff of Rahat Plt Count MPV Immature Gran % (Auto) Neut % (Auto) Lymph % (Auto) [place] % (Auto) Eos % (Auto) Baso % (Auto) Absolute Neuts (auto) Absolute Lymphs (auto) Nucleated RBC % PT INR APTT Sodium Potassium Chloride Carbon Dioxide Anion Gap BUN Creatinine Estim Creat Clear Calc Est GFR (MDRD) Af Amer Est GFR (MDRD) Non-Af BUN/Creatinine Ratio Glucose Calcium Total Bilirubin AST ALT Alkaline Phosphatase Troponin I High Sens Total Protein Albumin Globulin Albumin/Globulin Ratio Lipase Blood Type B POSITIVE Antibody Screen NEGATIVE Radiography Diagnostic Testing: Clinical Impression(s) from Imaging Studies Abdomen/Pelvis CTA 09/08/21 13:40 IMPRESSION: Fluid distention of the colon down to the rectum with fluid with an attenuation coefficient of higher than soft tissue suggests some possible mixture with blood products. Electronically Signed: Kenneth Driscoll MD at 14:39 EDT , EKG Initial EKG: Attestation: I personally reviewed and interpreted this EKG as follows: Interpretation: Sinus Rhythm (72) and Non-Specific ST Changes Prior EKG tracings: available for review Prior: Unchanged Critical Care Time Critical Care Time: Yes Critical care time (excluding procedures): 30-74 minutes (33), Including time spent:, Discussing w/Patient &/or Family/President [employer], Discussing w/Consultants, Arranging Admission or Transfer and Performing Direct Patient Care at Bedside Discharge Plan Dx/Rx/DC Orders Clinical Impression: Gastrointestinal hemorrhage, Syncope and collapse Disposition Disposition: Acute Care Hospital [facility] Discharge Date/Time: 09/08/21 15:33
--- NOTE | 2021-09-08 12:45 | EKG12_ITS ---
Test Reason : Blood Pressure : / mmHG Vent. Rate : 072 BPM Atrial Rate : 072 BPM P-R Int : 182 ms QRS Dur : 100 ms QT Int : 424 ms P-R-T Axes : 056 -13 019 degrees QTc Int : 464 ms Normal sinus rhythm Nonspecific ST and T wave abnormality Abnormal ECG Confirmed by YANETH MARTINEZ, YOSELYN ([id number]), production editor DEBBI DIXON ([id number]) on 09/10/2021 10:33:21 AM Referred By: Confirmed By:YOSELYN WOLFE MD
[2021-09-08] MEDS: 0.9% Normal Saline 1,000 ML 1000 ML IV (12:48)
[2021-09-08 13:11] LABS: Absolute Lymphocyte Count 0.75 X10^3/uL (0.83-4.51); Absolute Neutrophil Count 9.1 X10^3/uL (2.0-7.7); Basophil# 0.05 X10^3/uL; Basophil% 0.5 % (0-1); Eosinophil# 0.08 X10^3/uL; Eosinophils% 0.7 % (0-5); Hemoglobin 13.9 g/dL (13.0-16.5); Lymphocyte # 0.75 X10^3/ul (0.83-4.51); Lymphocyte % 6.9 % (19-41); Mean Corp Hgb Conc 33.1 g/dL (32-36); Mean Corpuscular Hgb 29.8 pg (27.0-32.0); Mean Corpuscular Volume 90.1 fL (80-94); Mean Platelet Vol. 10.8 fl (6.2-12.0); Monocyte# 0.82 X10^3/uL; Monocyte% 7.6 % (0-10); NRBC Flagged by Analyzer 0 % (0-5); Neutrophil # 9.07 X10^3/uL (2.7-7.7); Neutrophil % 83.7 % (47-70); Platelet Count 168 K/mm3 (150-450); RBC Distribution Width SD 42.5 fl (35.1-43.9); Red Blood Count 4.66 M/mm3 (4.6-6.2); White Blood Count 10.8 K/mm3 (4.4-11.0)
[2021-09-08 13:18] LABS: International Normalized Ratio 1.5; Prothrombin Time (Protime)PT. 17.5 SECONDS (11.7-14.9)
[2021-09-08 13:19] LABS: Partial Thromboplast Time 30.6 Seconds (24.1-36.2)
[2021-09-08 13:38] LABS: AST(SGOT) 26 U/L (15-37); Alanine Aminotransfer ALT/SGPT 32 U/L (16-61); Albumin, Serum 3.5 g/dL (3.2-5.0); Alkaline Phosphatase 70 U/L (45-117); Anion Gap 6 (5-15); BUN 15 mg/dL (7-18); BUN/Creat Ratio 11.5 RATIO (10-20); Calcium,Total 8.6 mg/dL (8.5-10.1); Chloride 106 mmol/L (98-107); Creatinine, Serum 1.31 mg/dL (0.70-1.30); EST Glomerular Filtration Rate 57 mL/min (>60); Est Glom Filt Rate - Afr Amer 69 mL/min (>60); Estimated Creatinine Clearance 61.82 ml/min; Globulin 3.4 g/dL (2.2-4.2); Glucose 168 mg/dL (74-106); Lipase 143 U/L (73-393); Potassium 3.9 mmol/L (3.5-5.1); Protein, Total 6.9 g/dL (6.4-8.2); Sodium Level 137 mmol/L (136-145); Troponin-I HS (w/2H Reflex) < 3 pg/mL (3.0-78.0)
--- NOTE | 2021-09-08 13:40 | CT_ITS ---
STUDY: CTA ABDOMEN AND PELVIS WITH CONTRAST REASON FOR EXAM: Male, 70 years old. GI bleed RADIATION DOSAGE (If Supplied By Facility): CTDIvol = ( 27.94 ) mGy, DLP = ( 846.34 ) mGycm TECHNIQUE: Transaxial images were obtained from the dome of the diaphragm to the symphysis pubis without oral contrast. IV 100mL Isovue-370 was administered. Sagittal and coronal images were reconstructed. Individualized dose optimization techniques were used for this CT. COMPARISON: Comparison is made with prior study dated 02/12/2016. FINDINGS: 1.7 cm right infrahilar lymph node. The visualized portions of the heart are within normal limits. There is decreased attenuation of the liver consistent with steatosis. Tiny solitary gallstone. Normal spleen. Normal pancreas. Normal bilateral adrenal glands. Normal right kidney. Normal left kidney. Normal visualized stomach. Normal small intestine. Fluid distention of the colon down to the rectum. The fluid measures a density greater than soft tissue. Possible blood products within the fluid. Scattered sigmoid diverticula. The appendix is visualized and appears normal. Normal abdominal aorta. Normal inferior vena cava. Normal retroperitoneum. Normal urinary bladder. There are prostatic calcifications. There is a small umbilical hernia containing fat. Small bilateral inguinal hernias containing fat worse on the right side. There are diffuse degenerative changes of the visualized lumbar spine. CT/CT ANGIO ABD&PEL W/O&W/DYE IMPRESSION: Fluid distention of the colon down to the rectum with fluid with an attenuation coefficient of higher than soft tissue suggests some possible mixture with blood products. Electronically Signed: Kenneth Driscoll MD at 14:39 EDT ,
--- NOTE | 2021-09-08 14:09 | PCM.HP.STD ---
HPI - General General Date of Admission: 09/08/21 Date of Service: 09/08/21 Chief Complaint: Syncope, BRBPR, recent COVID vaccination HPI Narrative The patient is a 70 y/o M w/ PMHx: CKD stage III unclear subtype, Hx VTE (DVT/PE), BPH who presents to the [facility] ED on 09/08/21 with history of syncopal event x2 on day of presentation noted to have initially occurred while he was driving noting that he felt weak prompting him to dross puller to change positions with his at which point unfortunately he passed out, falling to his knees reoccurring while he was seated in the passenger side as well with 3 episodes on day of presentation currently of bloody bowel movements specifically bright red blood with some mild nausea with episode of emesis while in the EMS on route. He does report abdominal cramping sensation, worse in the left lower quadrant and some tenderness with palpation which seems to ryne some following these bloody bowel movements. He does report that at initial onset he had a mix of diarrhea and blood. He notes a day prior while working in his garden he did feel mildly dyspneic. He states he did receive his COVID booster 2 days prior to current presentation and following this did have an elevated temperature 100.2. While in the ED patient had recurrent BRPBR while using the restroom with recurrent syncopal event. Work-up in the ED included T98.4, heart rate 82, BP 121/89, respiratory rate 15, 99% on room air, no orthostatics obtained while in the ED, CBC with WC 10.8, hemoglobin 13.9, platelet 168 with left shift and lymphopenia, coags with PT 17.5, INR 1.5, PTT 30.6, CMP with BUN/creat 15/1.31, glucose 168 otherwise not marked appearing, troponin less than 3, lipase 143, rapid COVID antigen negative, EKG w/ SR with nonspecific changes without acute evidence of ischemia, CTA abdomen and pelvis pending upon requested evaluation of patient, obtained per Dr. Mariano, GI recommendation. In the ED given serial episodes of bleeding and syncopal events, K-centra was ordered as well as T+S and patient was additionally administered vitamin K 10 mg IV x 1. Of note most recent endoscopies include 06/19/2019 colonoscopy with a 5 mm polyp noted in the ascending colon removed with a hot snare, diverticulosis in the sigmoid colon, nonbleeding internal hemorrhoids otherwise not marked appearing with recommended follow-up colonoscopy in [address] Dutta with pathology eventually noted for tubular adenoma. Upon admission did discuss case again with Dr. Mariano and did also contact and review case with Dr. Flores, animal technician and Dr. Dutta, general surgeon. 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 Cough Dyspnea Fatigue Hematuria Hilar adenopathy Hyperglyceridemia Hypokalemia Impotence Left leg DVT Mediastinal adenopathy Mild concentric left ventricular hypertrophy (LVH) Peyronie's disease Pulmonary embolism Right ventricular dilation Rosacea Spleen enlarged Home Medications multivitamin with folic acid 1 tab PO DAILY 02/10/16 [History Last Taken 09/08/21 08:30] aspirin 81 mg tablet,delayed release 81 mg PO DAILY 05/14/17 [History Last Taken 09/08/21 08:30] rivaroxaban 20 mg tablet 20 mg PO DAILY@1800 06/12/17 [History Last Taken 09/07/21] acetaminophen 1,000 mg PO Q6H PRN 09/08/21 [History Last Taken 09/07/21 22:00] Allergy/AdvReac Type Severity Reaction Status Date / Time gemfibrozil [From Lopid] Allergy Severe Unknown Verified 07/17/20 14:28 niacin Allergy Severe Unknown Verified 07/17/20 14:28 [From Niaspan Extended-Release] rosuvastatin [From Crestor] AdvReac Nausea Verified 07/17/20 14:28 Family History Brother Heart disease A-fib Sister DVT (deep venous thrombosis) Surgical History History of back surgery History of colonoscopy (~05/2019) History of hernia repair History of left knee surgery History of right knee surgery History of shoulder surgery Social History (Updated 09/08/21 @ 17:[address] Vicky Mcdonald MD) household members: spouse Smoking Status: Never smoker Electronic Cigarette Use: not used second hand exposure: No alcohol intake: never substance use type: does not use caffeine: Yes what type of physical activity do you participate in: walking frequency: 3-4 times per week duration: 15-30 minutes/day seatbelt use: always ROS ROS Narrative Admission Review of Systems: CONSTITUTIONAL: No weight loss, fever, chills, + weakness or fatigue. HEENT: Eyes: No visual loss, blurred vision, double vision or yellow sclerae. Ears, Nose, Throat: No hearing loss, sneezing, congestion, runny nose or sore throat. SKIN: No rash or itching, lesions, wounds. CARDIOVASCULAR: + Syncopal events. No chest pain, chest pressure or chest discomfort, palpitations, edema, orthopnea. RESPIRATORY: + Shortness of breath, No cough or sputum, wheezing, hemoptysis. GASTROINTESTINAL: + Anorexia, nausea, vomiting, loose stools with BRB, abdominal cramping, No melena per patient report. GENITOURINARY: No dysuria, frequency, urgency or retention. NEUROLOGICAL: + Syncopal events. No headache, paralysis, ataxia, numbness or tingling in the extremities, focal weakness, change in bowel or bladder control, seizure. MUSCULOSKELETAL: No muscle, back pain, joint pain or stiffness. HEMATOLOGIC: + anemia, bleeding or bruising. LYMPHATICS: No enlarged nodes. No history of splenectomy. PSYCHIATRIC: No history of depression or anxiety. ENDOCRINOLOGIC: No reports of sweating, cold or heat intolerance. No polyuria or polydipsia. ALLERGIES: No history of asthma, hives, eczema or rhinitis. Vital Signs Vital Signs Vital Signs: 09/08/21 12:27 09/08/21 12:32 Temperature 98.4 F Temperature Source Oral Pulse Rate 82 Respiratory Rate 15 Respiratory Pattern Normal Blood Pressure 121/89 H Blood Pressure Mean 99 Pulse Ox 99 Oxygen Delivery Method Room Air Weight Weight: 209 lb 3.499 oz Body Mass Index (BMI) 26.1 Physical Exam Narrative Physical Examination: General: Awake, alert, oriented x 3 and cooperative, laying in the ED bed, pale appearing, notes ongoing abdominal cramping, recent repeat syncopal event with bright red blood per rectum concurrently, notes he is currently nauseated. Skin: Pale, normal turgor, no icterus, no cyanosis. HEENT: AT/NC, EOMI, PERRLA, mildly dry MM, no carotid bruits or JVD noted. Lungs: Mildly diminished, greater bases, appropriate effort, no rales, ronchi or wheezing. Heart: Currently regular rate and rhythm; no gallop, rub audible. Abdomen: Soft, mild generalized discomfort with cramping to palpation however is significant more notable left lower quadrant discomfort with some mild guarding, no obvious distention, mildly hyperactive bowel sounds, difficult to assess HSM given discomfort. Extremities: No cyanosis, clubbing, or edema. Neurological: Patient awake, alert, oriented x 3, cognitive function intact; pupils equally reactive to light and accommodation, cranial nerves II-XII grossly normal, moving all 4 extremities, no focal deficits, strength severely global decrease secondary to acute presentation Psychiatric: Affect appears fatigued, ill-appearing, no acute evidence of depressive or anxiety feelings. Results Lab / Micro Data Result Diagrams: 09/08/21 16:05 09/08/21 13:03 Labs: Laboratory Results - last 24 hr 09/08/21 13:03: WBC 10.8, RBC 4.66, Hgb 13.9, Hct 42.0, MCV 90.1, MCH 29.8, MCHC 33.1, RDW Std Deviation 42.5, RDW Coeff of Rahat 13.0, Plt Count 168, MPV 10.8, Immature Gran % (Auto) 0.600, Neut % (Auto) 83.7 H, Lymph % (Auto) 6.9 L, [place] % (Auto) 7.6, Eos % (Auto) 0.7, Baso % (Auto) 0.5, Absolute Neuts (auto) 9.1 H, Absolute Lymphs (auto) 0.75 L, Nucleated RBC % 0 09/08/21 13:03: PT 17.5 H, INR 1.5, APTT 30.6 09/08/21 13:03: Sodium 137, Potassium 3.9, Chloride 106, Carbon Dioxide 25.0, Anion Gap 6, BUN 15, Creatinine 1.31 H, Estim Creat Clear Calc 61.82, Est GFR (MDRD) Af Amer 69, Est GFR (MDRD) Non-Af 57 L, BUN/Creatinine Ratio 11.5, Glucose 168 H, Calcium 8.6, Total Bilirubin 0.80, AST 26, ALT 32, Alkaline Phosphatase 70, Troponin I High Sens < 3 L, Total Protein 6.9, Albumin 3.5, Globulin 3.4, Albumin/Globulin Ratio 1.0, Lipase 143 Micro: Microbiology 09/08/21 13:03 Nasal Secretion SARS-CoV-2 Antigen (Rapid) - Final Assessment & Plan Assessment/Plan (1) Gastrointestinal hemorrhage: QUALIFIERS: GI bleed type/associated pathology: unspecified gastrointestinal hemorrhage type Qualified Code(s): K92.2 - Gastrointestinal hemorrhage, unspecified (2) Syncope and collapse: (3) Acute blood loss anemia: PLAN: The patient is a 70 y/o M w/ PMHx: CKD stage III unclear subtype, Hx VTE (DVT/PE), BPH who presents to the [facility] ED on 09/08/21 with history of syncopal event x2 on day of presentation noted to have initially occurred while he was driving noting that he felt weak prompting him to dross puller to change positions with his at which point unfortunately he passed out, falling to his knees reoccurring while he was seated in the passenger side as well with 3 episodes on day of presentation currently of bloody bowel movements specifically bright red blood with some mild nausea with episode of emesis while in the EMS on route. #1. Acute Syncopal events suspected secondary to Acute GI Bleed w/ resultant Acute Blood Loss Anemia Suspected: Will admit to the ICU, maintain on IVFs, ED initiated and planned ongoing reversal of coagulopathy, obtain serial H+H q 4 hours, obtain T+S per ED already with T+C if appropriate, maintain on fall precautions, orthostatic requested however suspect these will not be able to be obtained given patient's significant symptomatic nature with any significant positional changes, IV PPI, GI and ICU consulted, pending. CTA Abd/Pelv pending per ED upon evaluation of patient. #2. Hyperglycemia: Admission glucose 168, will obtain hemoglobin A1c be cautious, certainly could be stress response. #3. Hx VTE (Hx PE and noted Chronic DVT, Femoral: Patient on xarelto, being administered K-centra, T+S pending. Pending GI evaluation #4. Chronic Kidney Disease Stage III, unclear subtype: Admission BUN/Cr 15/1.31, baseline renal function 1.2-1.3, repeat BMP in AM. #5. BPH: Not on any regimen, defer to outpatient. #6. Hyperlipidemia: Not on regimen, intolerance noted. #7. DVT prophylaxis: SCDs, holding Xarelto as noted with reversal and continued evaluation #1. #8. CODE status: Patient HCPESCOBAR is his who is and living will is currently in place. Discussed CODE status at length including difference between FULL code, DNR-CCA and DNR-CC status. Following discussions about the differences in these status, requested Full Code status. Advanced Care Planning Face to Face Time: 16 minutes. Charges/Coding Visit Charges Inpatient E&M: 17535 Init Hosp L3 Procedures Hospitalists Procedures: 72264 Advncd Care Plan 30 Min
--- NOTE | 2021-09-08 14:29 | NURSING ---
ICU WHITE GASTROINTESTINAL BLEEDING, SYNCOPE
--- NOTE | 2021-09-08 14:49 | NURSING ---
ICU 1
[2021-09-08 15:09] LABS: Reflex Troponin-HS? (from REC) Y
[2021-09-08] MEDS: Ondansetron 4 MG/2 ML Vial IV (15:19)
[2021-09-08] MEDS: proCHLORPERazine 10 MG/2 ML Vial 5 MG IV (15:52)
[2021-09-08] MEDS: 0.9% Normal Saline 1,000 ML 125 ML IV ×2 (15:56→19:58)
[2021-09-08] MEDS: Lidocaine 4% 5 ML Ampul 2 ML INHALATION (16:12)
[2021-09-08 16:23] LABS: Hematocrit 32.8 % (40-54); Hemoglobin 11.1 g/dL (13.0-16.5)
[2021-09-08] MEDS: Oxymetazoline 0.05% 1 SPRAY SPRAY.BTL 2 SPRAY NASAL (16:23)
[2021-09-08 16:40] LABS: Troponin-I HS < 3 pg/mL (3.0-78.0)
--- NOTE | 2021-09-08 17:01 | PCM.CONS.GEN ---
Assessment & Plan Assessment/Plan (1) Acute blood loss anemia: PLAN: We will do an upper and lower endoscopy to to hopefully find the etiology of his acute GI bleed. He was explained alternatives, risk, benefits including not withstanding bleeding, infection, sepsis, perforation, need for emergency or . Have an ASA of 3. HPI Consult Data Date of Consult: 09/08/21 HPI Narrative HPI Narrative: RUI DUFFY, is a 70 M who presents via EMS as likely having 2 syncopal episodes. Patient said he woke up this morning without any problems and went to have his normal bowel movement and he saw a little bit of blood. He was not concerned because he has a history of hemorrhoids and had seen a little bit of blood previously and attributed to his blood thinner that he takes with has a history of chronic DVT. However approximately 15 minutes later he had a large bowel movement. He attempted to drive over to his son's house which is about 20 minutes away and had a syncopal episode. He pulled over on the side of the road and had another syncopal event after bowel movement. Prior to him coming to the hospital he had 3 bowel movements that were bloody mostly red in content. Patient states he was having some nausea and vomited in the back of the ambulance. Patient denies any nausea or abdominal pain currently. Patient states that yesterday he was working in his garden and he felt short of breath with this. Patient had a recent COVID-19 booster 2 days ago. Patient had a temperature of 100.2 after this. Patient denies any chest pain. In the ED with her to have a hemoglobin of 11.1. Baseline hemoglobin is 15. His BUN/creatinine ratio was 15/1.3. He has stage III CKD. He does take a baby aspirin on a daily basis. Currently at this time he is in ICU and he is received Kcentra, vitamin K and fresh frozen plasma is waiting for transfusion. His blood pressure is 103/65 with a heart rate ranging from 90 to 105. 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 vein Cough Dyspnea Fatigue Hematuria Hilar adenopathy Hyperglyceridemia Hypokalemia Impotence Left leg DVT Mediastinal adenopathy Mild concentric left ventricular hypertrophy (LVH) Peyronie's disease Pulmonary embolism Right ventricular dilation Rosacea Spleen enlarged Home Medications multivitamin with folic acid 1 tab PO DAILY 02/10/16 [History Last Taken 09/08/21 08:30] aspirin 81 mg tablet,delayed release 81 mg PO DAILY 05/14/17 [History Last Taken 09/08/21 08:30] rivaroxaban 20 mg tablet 20 mg PO DAILY@1800 06/12/17 [History Last Taken 09/07/21] acetaminophen 1,000 mg PO Q6H PRN 09/08/21 [History Last Taken 09/07/21 22:00] Allergy/AdvReac Type Severity Reaction Status Date / Time gemfibrozil [From Lopid] Allergy Severe Unknown Verified 07/17/20 14:28 niacin Allergy Severe Unknown Verified 07/17/20 14:28 [From Niaspan Extended-Release] rosuvastatin [From Crestor] AdvReac Nausea Verified 07/17/20 14:28 Family History Brother Heart disease A-fib Sister DVT (deep venous thrombosis) Surgical History History of back surgery History of colonoscopy (~05/2019) History of hernia repair History of left knee surgery History of right knee surgery History of shoulder surgery Social History (Updated 09/08/21 @ 17:[address] Vicky Mcdonald MD) household members: spouse Smoking Status: Never smoker Electronic Cigarette Use: not used second hand exposure: No alcohol intake: never substance use type: does not use caffeine: Yes what type of physical activity do you participate in: walking frequency: 3-4 times per week duration: 15-30 minutes/day seatbelt use: always ROS Cardiovascular Cardiovascular: Reports lightheadedness and nausea Gastrointestinal Gastrointestinal: Reports hematochezia Physical Exam Const alert General Appearance: cooperative Orientation / Consciousness: oriented to person HEENT hearing grossly normal bilaterally Head and Scalp: normal to inspection Face and Sinus: face symmetric Nose: external nose normal Mouth: oral and palatal mucosa normal Eyes conjunctivae normal General Eye: normal appearance of both eyes Neck full ROM General: normal visual inspection Lymph Lymphatic: no lymphadenopathy noted Chest inspection of chest normal and palpation of chest normal Chest: symmetrical chest wall rise Resp normal respiratory effort Effort and Inspection: able to speak in complete sentences Cardio Cardio Narrative: Tachycardia GI non-distended Percussion: normal to percussion Rectal Exam: deferred Neuro Speech: speech normal Gait (Neuro): normal gait Lab / Micro Data Result Diagrams: 09/08/21 16:05 09/08/21 13:03 Labs: Laboratory Results - last 24 hr 09/08/21 13:03: WBC 10.8, RBC 4.66, Hgb 13.9, Hct 42.0, MCV 90.1, MCH 29.8, MCHC 33.1, RDW Std Deviation 42.5, RDW Coeff of Rahat 13.0, Plt Count 168, MPV 10.8, Immature Gran % (Auto) 0.600, Neut % (Auto) 83.7 H, Lymph % (Auto) 6.9 L, [place] % (Auto) 7.6, Eos % (Auto) 0.7, Baso % (Auto) 0.5, Absolute Neuts (auto) 9.1 H, Absolute Lymphs (auto) 0.75 L, Nucleated RBC % 0 09/08/21 13:03: PT 17.5 H, INR 1.5, APTT 30.6 09/08/21 13:03: Sodium 137, Potassium 3.9, Chloride 106, Carbon Dioxide 25.0, Anion Gap 6, BUN 15, Creatinine 1.31 H, Estim Creat Clear Calc 61.82, Est GFR (MDRD) Af Amer 69, Est GFR (MDRD) Non-Af 57 L, BUN/Creatinine Ratio 11.5, Glucose 168 H, Calcium 8.6, Total Bilirubin 0.80, AST 26, ALT 32, Alkaline Phosphatase 70, Troponin I High Sens < 3 L, Total Protein 6.9, Albumin 3.5, Globulin 3.4, Albumin/Globulin Ratio 1.0, Lipase 143 09/08/21 13:09: Blood Type B POSITIVE, Antibody Screen NEGATIVE 09/08/21 13:09: Crossmatch See Detail 09/08/21 16:05: Troponin I High Sens < 3 L 09/08/21 16:05: Hgb 11.1 L, Hct 32.8 L Micro: Microbiology 09/08/21 13:03 Nasal Secretion SARS-CoV-2 Antigen (Rapid) - Final Radiology Impression Abdomen/Pelvis CTA 09/08/21 13:40 IMPRESSION: Fluid distention of the colon down to the rectum with fluid with an attenuation coefficient of higher than soft tissue suggests some possible mixture with blood products. Electronically Signed: Kenneth Driscoll MD at 14:39 EDT , Charges/Coding Visit Charges Inpatient E&M: 47517 Init Hosp L2
--- NOTE | 2021-09-08 17:27 | EKG12_ITS ---
Test Reason : Blood Pressure : / mmHG Vent. Rate : 091 BPM Atrial Rate : 091 BPM P-R Int : 172 ms QRS Dur : 094 ms QT Int : 362 ms P-R-T Axes : 058 -28 -21 degrees QTc Int : 445 ms Normal sinus rhythm Inferior infarct , age undetermined , cannot be excluded Nonspecific ST and T wave abnormality Abnormal ECG Confirmed by YANETH MARTINEZ, YOSELYN ([id number]), editorial assistant DEBBI DIXON ([id number]) on 09/11/2021 12:49:27 PM Referred By: AVELINA Confirmed By:YOSELYN WOLFE MD
--- NOTE | 2021-09-08 17:40 | NURSING ---
Rapid Response called at 1627 due to patient becoming unresponsive after being sat up for NG insertion. Staff responded along with Dr. Vicky Mcdonald. This RN gave Dr. Mcdonald report about events leading up to rapid response. Dr. Mariano also arrived and stated to not insert NG tube and decided to take pt. to ambulatory to be scoped.
--- NOTE | 2021-09-08 17:44 | NURSING ---
Pt. left floor with typesetters printer at 1710.
[2021-09-08] MEDS: 0.9% Normal Saline (Pres. free 10 ML Vial (18:41)
[2021-09-08] MEDS: Epinephrine (1 mg/ml) 1 MG/ML VIAL (18:41)
--- NOTE | 2021-09-08 18:59 | OP.EGD_ITS ---
Patient Name: Francisco Javier Obrien Procedure Date: 09/08/2021 5:27 PM Date of : 1950 Age: 70 Procedure: Upper GI endoscopy Indications: Hematemesis, Hematochezia Providers: Karson Mariano DO Medicines: Monitored Anesthesia Care Patient Profile: This is a 70 year old male. Refer to note in patient chart for documentation of history and physical. Patient has symptoms of acute vomiting. Complications: No immediate complications. Procedure: Pre-Anesthesia Assessment: - Prior to the procedure, a History and Physical was performed, and patient medications and allergies were reviewed. The risks and benefits of the procedure and the sedation options and risks were discussed with the patient. All questions were answered and informed consent was obtained. Patient identification and proposed procedure were verified by the physician. Mental Status Examination: normal. Respiratory Examination: clear to auscultation. Prophylactic Antibiotics: The patient does not require prophylactic antibiotics. Prior Anticoagulants: The patient has taken no previous anticoagulant or antiplatelet agents. After reviewing the risks and benefits, the patient was deemed in satisfactory condition to undergo the procedure. The anesthesia plan was to use moderate sedation / analgesia (conscious sedation). Immediately prior to administration of medications, the patient was re-assessed for adequacy to receive sedatives. The heart rate, respiratory rate, oxygen saturations, blood pressure, adequacy of pulmonary ventilation, and response to care were monitored throughout the procedure. The physical status of the patient was re-assessed after the procedure. After obtaining informed consent, the endoscope was passed under direct vision. Throughout the procedure, the patient's blood pressure, pulse, and oxygen saturations were monitored continuously. The pediatric colonoscope was introduced through the mouth, and advanced to the third part of duodenum. The upper GI endoscopy was accomplished without difficulty. The patient tolerated the procedure well. Scope In: 5:53:54 PM Scope Out: 5:56:16 PM Total Procedure Duration Time 0 hours 2 minutes 22 seconds Findings: LA Grade C (one or more mucosal breaks continuous between tops of 2 or more mucosal folds, less than 75% circumference) esophagitis with no bleeding was found 34 to 40 cm from the incisors. The entire examined stomach was normal. A medium-sized hiatal hernia was present. The second portion of the duodenum was normal, execpt for duodenitis Impression: - LA Grade C reflux esophagitis. - Normal stomach. - Medium-sized hiatal hernia. - Normal second portion of the duodenum. - No specimens collected. Recommendation: - [facility]. - Clear liquid diet. - The patient has taken no previous anticoagulant or antiplatelet agents. Procedure Code(s): --- Professional --- 08319, Esophagogastroduodenoscopy, flexible, transoral; diagnostic, including collection of specimen(s) by brushing or washing, when performed (separate procedure) CPT copyright 2017 [employer]. All rights reserved. The codes documented in this report are preliminary and upon solderer torch review may be revised to meet current compliance requirements. Karson Mariano DO 09/08/2021 6:59:33 PM This report has been signed electronically. Number of Addenda: 1 Note Initiated On: 09/08/2021 5:27 PM Addendum Number: 1 Addendum Date: 01/23/2022 6:22:14 AM MAC was used as sedation for this procedure. Karson Mariano DO 01/23/2022 6:22:18 AM This report has been signed electronically.
--- NOTE | 2021-09-08 19:00 | OP.CCLET_ITS ---
01/23/2022 Ellis Gonzalez MD [address] [place] [address] Re : Upper GI endoscopy procedure for Francisco Javier Obrien Dear Dr. Gonzalez This procedure was performed on Wednesday, September 08, 2021. My impressions and recommendations are as follows: Impressions : - LA Grade C reflux esophagitis. - Normal stomach. - Medium-sized hiatal hernia. - Normal second portion of the duodenum. - No specimens collected. Recommendations : - [facility]. - Clear liquid diet. - The patient has taken no previous anticoagulant or antiplatelet agents. My findings are described in the full procedure note, which is enclosed. If I can be of further assistance, please feel free to contact me at . Sincerely, Karson Mariano, 09/08/2021 6:59:33 PM This report has been signed electronically.
--- NOTE | 2021-09-08 19:17 | OP.COLON_ITS ---
Patient Name: Francisco Javier Obrien Procedure Date: 09/08/2021 5:56 PM Date of : 1950 Age: 70 Procedure: Colonoscopy Indications: Hematochezia Providers: Karson Mariano DO Medicines: Monitored Anesthesia Care Patient Profile: This is a 70 year old male. Refer to note in patient chart for documentation of history and physical. Patient has symptoms of acute vomiting. Last Colonoscopy: 3 years ago. Complications: No immediate complications. Procedure: Pre-Anesthesia Assessment: - Prior to the procedure, a History and Physical was performed, and patient medications and allergies were reviewed. The risks and benefits of the procedure and the sedation options and risks were discussed with the patient. All questions were answered and informed consent was obtained. Patient identification and proposed procedure were verified by the physician. Mental Status Examination: normal. Respiratory Examination: clear to auscultation. Prophylactic Antibiotics: The patient does not require prophylactic antibiotics. Prior Anticoagulants: The patient has taken no previous anticoagulant or antiplatelet agents. After reviewing the risks and benefits, the patient was deemed in satisfactory condition to undergo the procedure. The anesthesia plan was to use moderate sedation / analgesia (conscious sedation). Immediately prior to administration of medications, the patient was re-assessed for adequacy to receive sedatives. The heart rate, respiratory rate, oxygen saturations, blood pressure, adequacy of pulmonary ventilation, and response to care were monitored throughout the procedure. The physical status of the patient was re-assessed after the procedure. After I obtained informed consent, the scope was passed under direct vision. Throughout the procedure, the patient's blood pressure, pulse, and oxygen saturations were monitored continuously. The pediatric colonoscope was introduced through the anus and advanced to the terminal ileum. The colonoscopy was performed without difficulty. The patient tolerated the procedure well. No bowel preparation was given prior to the procedure. The quality of visualization was fair. No bowel preparation was given prior to the procedure. Scope In: 6:00:32 PM Scope Out: 6:49:33 PM Total Procedure Duration Time 0 hours 49 minutes 1 second Findings: The perianal and digital rectal examinations were normal. Multiple small and large-mouthed diverticula were found in the sigmoid colon, descending colon, splenic flexure, transverse colon and hepatic flexure. There was active bleeding coming from the diverticular opening. Area was successfully injected with 20 mL of a 1:20,000 solution of epinephrine for hemostasis. Coagulation for hemostasis using heater probe was successful. Area was successfully injected with 4 mL Nathaly ink for tattooing. Estimated blood loss was minimal. The terminal ileum contained old blood that possibly transferred back from the colon. Impression: - Severe diverticulosis in the sigmoid colon, in the descending colon, at the splenic flexure, in the transverse colon and at the hepatic flexure. There was active bleeding coming from the diverticular opening. Injected. Treated with a heater probe. - Blood in the terminal ileum. - No specimens collected. Recommendation: - [facility]. - Flagyl (metronidazole) 500 mg IV loading dose followed by 500 mg IV q 6 hr for 7 days. - Levaquin (levofloxacin) 500 mg IV daily for 7 days. - No repeat colonoscopy. - Continue present medications. Procedure Code(s): --- Professional --- 03039, Colonoscopy, flexible; with control of bleeding, any method CPT copyright 2017 [employer]. All rights reserved. The codes documented in this report are preliminary and upon coder operator review may be revised to meet current compliance requirements. Karson Mariano DO 09/08/2021 7:16:29 PM This report has been signed electronically. Number of Addenda: 1 Note Initiated On: 09/08/2021 5:56 PM Addendum Number: 1 Addendum Date: 01/23/2022 6:22:27 AM MAC was used as sedation for this procedure. Karson Mariano DO 01/23/2022 6:22:31 AM This report has been signed electronically.
--- NOTE | 2021-09-08 19:18 | OP.CCLET_ITS ---
01/23/2022 Ellis Gonzalez MD [address] [id number] Re : Colonoscopy procedure for Francisco Javier Micah Dear Dr. Gonzalez This procedure was performed on Wednesday, September 08, 2021. My impressions and recommendations are as follows: Impressions : - Severe diverticulosis in the sigmoid colon, in the descending colon, at the splenic flexure, in the transverse colon and at the hepatic flexure. There was active bleeding coming from the diverticular opening. Injected. Treated with a heater probe. - Blood in the terminal ileum. - No specimens collected. Recommendations : - [facility]. - Flagyl (metronidazole) 500 mg IV loading dose followed by 500 mg IV q 6 hr for 7 days. - Levaquin (levofloxacin) 500 mg IV daily for 7 days. - No repeat colonoscopy. - Continue present medications. My findings are described in the full procedure note, which is enclosed. If I can be of further assistance, please feel free to contact me at . Sincerely, Karson Mariano, 09/08/2021 7:16:29 PM This report has been signed electronically.
--- NOTE | 2021-09-08 19:24 | NURSING ---
Pt returned to ICU 1 by bed, on 2L O2 via NC. Unable to be redirected as he's pulling at wires, IV tubing and gown. Per AC nurses, pt given benadryl, reglan and phenergan for nausea and emesis just before coming to floor. WOOD ROOM HAND at bedside.
[2021-09-08] MEDS: 0.9% Saline Lock 10 ML Syringe IV ×4 (19:44→23:27)
[2021-09-08] MEDS: levoFLOXacin IV 500 MG/100 ML BAG 100 MG IV (19:51)
[2021-09-08 21:11] LABS: Troponin-I HS < 3 pg/mL (3.0-78.0)
[2021-09-08] MEDS: metroNIDAZOLE 500 MG/100 ML BAG 100 MG IV ×2 (21:28→23:27)
[2021-09-08 23:14] LABS: Bacteria 0 SEEN /hpf (None Seen); Mucous, Urine 0 SEEN /hpf (<or=2+); Red Blood Cells-Urine 0 SEEN /hpf (0-5); Squamous Epithelial Cells - UA 0 SEEN /hpf (0-5); White Blood Cells 0 SEEN /hpf (0-5)
[2021-09-08 23:17] LABS: Color, Urine Yellow (Yellow); Glucose, Dipstick 1000 mg/dl (Normal); Ketone-Dipstick 50 mg/dl (Negative); Leukocyte Esterase-Dipstick Negative /ul (Negative); Nitrite-Dipstick Negative (Negative); Specific Gravity, Urine 1.015 (1.002-1.030); Urine Bilirubin Dipstick Negative (Negative); Urine Clarity Clear (Clear); Urine Urobilinogen Normal (Normal)
[2021-09-08 23:21] LABS: Occult Blood-Urine Negative /ul (Negative); Protein-Dipstick 15 mg/dl (Negative)
[2021-09-08 23:41] LABS: Hematocrit 31.9 % (40-54); Hemoglobin 10.8 g/dL (13.0-16.5)
[2021-09-09] VITALS (39 sets, daily range): BP systolic 53–139; BP diastolic 33–93; PULSE 75–124; RESP 14–31; TEMP 36.9–39.3; O2SAT 91–100
[2021-09-09] MEDS: Acetaminophen 325 MG Tablet 650 MG PO ×2 (02:36→13:39)
[2021-09-09 03:28] LABS: Absolute Lymphocyte Count 0.58 X10^3/uL (0.83-4.51); Absolute Neutrophil Count 8.7 X10^3/uL (2.0-7.7); Hematocrit 26.9 % (40-54); Hemoglobin 9.5 g/dL (13.0-16.5); Lymphocyte # 0.58 X10^3/ul (0.83-4.51); Lymphocyte % 5.8 % (19-41); Mean Corp Hgb Conc 35.3 g/dL (32-36); Mean Corpuscular Hgb 30.9 pg (27.0-32.0); Mean Corpuscular Volume 87.6 fL (80-94); Mean Platelet Vol. 10.5 fl (6.2-12.0); Monocyte# 0.63 X10^3/uL; Monocyte% 6.3 % (0-10); NRBC Flagged by Analyzer 0 % (0-5); Neutrophil # 8.73 X10^3/uL (2.7-7.7); Neutrophil % 87.6 % (47-70); POSITIVE DIFFERENTIAL YES; Platelet Count 109 K/mm3 (150-450); RBC Distribution Width CV 13.2 % (11.6-14.6); RBC Distribution Width SD 41.7 fl (35.1-43.9); Red Blood Count 3.07 M/mm3 (4.6-6.2)
[2021-09-09 03:37] LABS: Differential Indicated SCAN CRITERIA MET
[2021-09-09] MEDS: 0.9% Normal Saline 1,000 ML 125 ML IV ×3 (03:54→18:32)
[2021-09-09 04:47] LABS: AST(SGOT) 13 U/L (15-37); Alanine Aminotransfer ALT/SGPT 19 U/L (16-61); Albumin, Serum 2.3 g/dL (3.2-5.0); Alkaline Phosphatase 36 U/L (45-117); Anion Gap 8 (5-15); BUN 17 mg/dL (7-18); BUN/Creat Ratio 14.8 RATIO (10-20); Calcium,Total 6.9 mg/dL (8.5-10.1); Chloride 113 mmol/L (98-107); Creatinine, Serum 1.15 mg/dL (0.70-1.30); EST Glomerular Filtration Rate 67 mL/min (>60); Est Glom Filt Rate - Afr Amer 81 mL/min (>60); Estimated Creatinine Clearance 70.42 ml/min; Globulin 2.3 g/dL (2.2-4.2); Glucose 132 mg/dL (74-106); Potassium 3.9 mmol/L (3.5-5.1); Protein, Total 4.6 g/dL (6.4-8.2); Sodium Level 141 mmol/L (136-145)
[2021-09-09] MEDS: metroNIDAZOLE 500 MG/100 ML BAG 100 MG IV ×3 (05:06→18:31)
--- NOTE | 2021-09-09 05:59 | CON.PCM.CC_ITS ---
Assessment & Plan Assessment/Plan (1) Acute blood loss anemia: (2) Syncope and collapse: (3) Gastrointestinal hemorrhage: QUALIFIERS: GI bleed type/associated pathology: unspecified ga strointestinal hemorrhage type Qualified Code(s): K92.2 - Gastrointestinal hemorrhage, unspecified PLAN: RECOMMENDATIONS: 1. Check H&H posttransfusion. 2. Continue IV fluid hydration until diet can be advanced. 3. Continue Flagyl and Levaquin per GI recommendations. 4. Continue PPI therapy. IMPRESSIONS: 1. Acute blood loss anemia leading to syncope The patient presented to the hospital with syncope in the setting of lower GI blood loss secondary to bleeding diverticulum. The patient was evaluated by gastroenterology and underwent upper and lower endoscopy with intervention performed. The patient's hemodynamics have been somewhat tenuous. He is rece iving transfusion of additional blood products. Plan to check H&H posttransfusion. Transfuse if hemoglobin drops below 7 g/dL. Continue gentle IV fluid hydration until the patient's diet can be safely advanced. Continue Levaquin and Flagyl to complete treatment course as per GI recommendations. Continue PPI therapy as ordered. 2. History of venous thromboembolic disease Systemic anticoagulation remains on hold in light of #1. 3. Chronic kidney disease/BPH/hyperlipidemia Complicates care, management, recovery and prognosis. Continue home medications as indicated. This note was generated with [employer] dictation software. It may contain incorrect words, spelling, and punctuation that were not noted in checking the note before signing. HPI Consult Data Date of Consult: 09/09/21 HPI Narrative Reason for Consultation: GI bleed, syncope HPI Narrative: The patient is a 70-year-old male, with a history as outlined below, who presented to the emergency department on September 08 with several syncopal events. The patient has a known history of venous thromboembolic disease and is currently on systemic anticoagulation. He also reported the presence of bloody bowel movements. On presentation to the emergency department, the patient was initially noted to be afebrile and hemodynamically stable. Laboratory evaluation revealed a hemoglobin of 14 g/dL. Chemistry profile was notable for a creatinine of 1.3. CT abdomen/pelvis revealed fluid distention of the colon. While in the emergency department, the patient experienced another syncopal event and was noted to have bright red blood per rectum. The patient was given supplemental IV fluid hydration. In addition, given his use of systemic anticoagulation, Kcentra was ordered. Gastroenterology was subsequently consulted. The patient was transfused 2 units packed red blood cells. Following evaluation by GI, the patient underwent upper and lower endoscopy. There was evidence of reflux esophagitis as well as severe diverticulosis involving the sigmoid, transverse and descending colon. Active bleeding was noted at a diverticular opening, which was injected and treated with a heater probe. The patient returned to the medical intensive care unit after his procedure. Overnight, the patient's hemodynamic status has been somewhat tenuous. His hemoglobin this morning was noted to be 9.5 g/dL. In light of his hypotension, additional IV fluids were administered. 2 additional packed red blood cells were ordered to be administered. 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 Cough Dyspnea Fatigue Hematuria Hilar adenopathy Hyperglyceridemia Hypokalemia Impotence Left leg DVT Mediastinal adenopathy Mild concentric left ventricular hypertrophy (LVH) Peyronie's disease Pulmonary embolism Right ventricular dilation Rosacea Spleen enlarged Home Medications multivitamin with folic acid 1 tab PO DAILY 02/10/16 [History Last Taken 09/08/21 08:30] aspirin 81 mg tablet,delayed release 81 mg PO DAILY 05/14/17 [History Last Taken 09/08/21 08:30] rivaroxaban 20 mg tablet 20 mg PO DAILY@1800 06/12/17 [History Last Taken 09/07/21] acetaminophen 1,000 mg PO Q6H PRN 09/08/21 [History Last Taken 09/07/21 22:00] Allergy/AdvReac Type Severity Reaction Status Date / Time gemfibrozil [From Lopid] Allergy Severe Unknown Verified 07/17/20 14:28 niacin Allergy Severe Unknown Verified 07/17/20 14:28 [From Niaspan Extended-Release] rosuvastatin [From Crestor] AdvReac Nausea Verified 07/17/20 14:28 Family History Brother Heart disease A-fib Sister DVT (deep venous thrombosis) Surgical History History of back surgery History of colonoscopy (~05/2019) History of hernia repair History of left knee surgery History of right knee surgery History of shoulder surgery Social History (Updated 09/08/21 @ 17:[address] Vicky Mcdonald MD) household members: spouse Smoking Status: Never smoker Electronic Cigarette Use: not used second hand exposure: No alcohol intake: never substance use type: does not use caffeine: Yes what type of physical activity do you participate in: walking frequency: 3-4 times per week duration: 15-30 minutes/day seatbelt use: always ROS Constitutional Constitutional: Denies chills, fatigue or fever(s) Eyes Eyes: Denies blurry vision or change in vision ENT HEENT: Reports dizziness; Denies dysphagia or epistaxis Cardiovascular Cardiovascular: Reports dizziness and lightheadedness Respiratory/Chest Respiratory/Chest: Denies cough or dyspnea Gastrointestinal Gastrointestinal: Reports hematochezia, nausea and vomiting Genitourinary Genitourinary: Denies difficulty urinating, dysuria or flank pain Musculoskeletal Musculoskeletal: Denies arthralgias, back pain or joint pain Integumentary Integumentary: Denies lesions, rash or skin ulcer Neurologic Neurologic: Denies abnormal gait or abnormal speech Psychiatric Psychiatric: Denies anxiety or depression Endocrine Endocrinology: Denies fatigue Hematologic/Lymphatic Hematologic/Lymphatic: Denies easy bleeding or easy bruising Physical Exam Const alert and no apparent distress General Appearance: cooperative HEENT normocephalic, head/scalp atraumatic and moist oral mucous membranes Eyes PERRL, EOMs intact bilaterally and conjunctivae normal Neck supple General: trachea midline Chest inspection of chest normal Resp normal respiratory effort Auscultation: Negative for rales, rhonchi or wheezes Cardio regular rate and regular rhythm GI normal to inspection, nondistended, normoactive bowel sounds Extremity no clubbing, cyanosis or edema Skin no rashes or lesions noted Neuro CN's II-XII intact bilaterally, moves all extremities and no focal motor deficits Psych cooperative and affect normal Lab / Micro Data Result Diagrams: 09/09/21 09:00 09/09/21 03:22 Labs: Laboratory Results - last 24 hr 09/08/21 13:03: WBC 10.8, RBC 4.66, Hgb 13.9, Hct 42.0, MCV 90.1, MCH 29.8, MCHC 33.1, RDW Std Deviation 42.5, RDW Coeff of Rahat 13.0, Plt Count 168, MPV 10.8, Immature Gran % (Auto) 0.600, Neut % (Auto) 83.7 H, Lymph % (Auto) 6.9 L, [place] % (Auto) 7.6, Eos % (Auto) 0.7, Baso % (Auto) 0.5, Absolute Neuts (auto) 9.1 H, Absolute Lymphs (auto) 0.75 L, Nucleated RBC % 0 09/08/21 13:03: PT 17.5 H, INR 1.5, APTT 30.6 09/08/21 13:03: Sodium 137, Potassium 3.9, Chloride 106, Carbon Dioxide 25.0, Anion Gap 6, BUN 15, Creatinine 1.31 H, Estim Creat Clear Calc 61.82, Est GFR (MDRD) Af Amer 69, Est GFR (MDRD) Non-Af 57 L, BUN/Creatinine Ratio 11.5, Glucose 168 H, Calcium 8.6, Total Bilirubin 0.80, AST 26, ALT 32, Alkaline Phosphatase 70, Troponin I High Sens < 3 L, Total Protein 6.9, Albumin 3.5, Globulin 3.4, Albumin/Globulin Ratio 1.0, Lipase 143 09/08/21 13:09: Blood Type B POSITIVE, Antibody Screen NEGATIVE 09/08/21 13:09: Crossmatch See Detail 09/08/21 16:05: Troponin I High Sens < 3 L 09/08/21 16:05: Hgb 11.1 L, Hct 32.8 L 09/08/21 20:35: Troponin I High Sens < 3 L 09/08/21 23:07: Urine Color Yellow, Urine Clarity Clear, Urine pH 6.0, Ur Specific [place] 1.015, Urine Protein 15 H, Urine Glucose (UA) 1000 H, Urine Ketones 50 H, Urine Occult Blood Negative, Urine Nitrite Negative, Urine Bilirubin Negative, Urine Urobilinogen Normal, Ur Leukocyte Esterase Negative, Urine RBC 0 SEEN, Urine WBC 0 SEEN, Ur Squamous Epith Cells 0 SEEN, Urine Bacte shawn 0 SEEN, Urine Mucus 0 SEEN 09/08/21 23:30: Hgb 10.8 L, Hct 31.9 L 09/09/21 03:22: WBC 10.0, RBC 3.07 L, Hgb 9.5 L, Hct 26.9 L, MCV 87.6, MCH 30.9, MCHC 35.3 D, RDW Std Deviation 41.7, RDW Coeff of Rahat 13.2, Plt Count 109 L, MPV 10.5, Immature Gran % (Auto) 0.300, Neut % (Auto) 87.6 H, Lymph % (Auto) 5.8 L, [place] % (Auto) 6.3, Eos % (Auto) 0.0, Baso % (Auto) 0.0, Absolute Neuts (auto) 8.7 H, Absolute Lymphs (auto) 0.58 L, Nucleated RBC % 0 09/09/21 03:22: Sodium 141, Potassium 3.9, Chloride 113 H, Carbon Dioxide 20.0 L , Anion Gap 8, BUN 17, Creatinine 1.15, Estim Creat Clear Calc 70.42, Est GFR (MDRD) Af Amer 81, Est GFR (MDRD) Non-Af 67, BUN/Creatinine Ratio 14.8, Glucose 132 H, Calcium 6.9 L, Total Bilirubin 0.90, AST 13 L, ALT 19, Alkaline Phosphatase 36 L, Total Protein 4.6 L, Albumin 2.3 L, Globulin 2.3, Albumin/Globulin Ratio 1.0 Micro: Microbiology 09/08/21 13:03 Nasal Secretion SARS-CoV-2 Antigen (Rapid) - Final Radiology Impression Abdomen/Pelvis CTA 09/08/21 13:40 IMPRESSION: Fluid distention of the colon down to the rectum with fluid with an attenuation coefficient of higher than soft tissue suggests some possible mixture with blood products. Electronically Signed: Kenneth Driscoll MD at 14:39 EDT , Charges/Coding Visit Charges Inpatient E&M: 97964 Init Hosp L3
--- NOTE | 2021-09-09 06:47 | NURSING ---
BP 53/33 at 0415. IV fluids increased d/t significant hypotension while awaiting blood products from blood bank.
--- NOTE | 2021-09-09 07:45 | PCM.PN.HOSP ---
Subjective Subjective Patient is a 70-year-old gentleman who presented following an episode of syncopal episode. He had apparently experienced 3 episodes of bright red stools prior to coming in. GI was consulted and admission colonoscopy revealed severe diverticulosis in the sigmoid colon descending colon and splenic flexure there was some active bleeding from a diverticular opening which was injected. EGD demonstrated reflux esophagitis Objective Data Objective Data Vital Signs: Vital Signs Temp Pulse Resp BP Pulse Ox 99.4 F H 83 22 H 80/65 L 94 09/09/21 07:00 09/09/21 07:00 09/09/21 07:00 09/09/21 07:00 09/09/21 07:00 Oxygen Flow Rate (L/min) 3 Oxygen Delivery Method Nasal Cannula Weight: 92.731 kg Body Mass Index (BMI) 24.7 Intake & Output: Intake and Output for Last 24 Hours 09/07/21 09/08/21 09/09/21 23:59 23:59 23:59 Intake Total 2845.17 / 2845.17 1651.67 / 1651.67 Output Total 1025 / 1025 Balance 1820.17 / 1820.17 1651.67 / 1651.67 Lab / Micro Data Result Diagrams: 09/09/21 09:00 09/09/21 03:22 Labs: Laboratory Results - last 24 hr 09/08/21 13:03: WBC 10.8, RBC 4.66, Hgb 13.9, Hct 42.0, MCV 90.1, MCH 29.8, MCHC 33.1, RDW Std Deviation 42.5, RDW Coeff of Rahat 13.0, Plt Count 168, MPV 10.8, Immature Gran % (Auto) 0.600, Neut % (Auto) 83.7 H, Lymph % (Auto) 6.9 L, [place] % (Auto) 7.6, Eos % (Auto) 0.7, Baso % (Auto) 0.5, Absolute Neuts (auto) 9.1 H, Absolute Lymphs (auto) 0.75 L, Nucleated RBC % 0 09/08/21 13:03: PT 17.5 H, INR 1.5, APTT 30.6 09/08/21 13:03: Sodium 137, Potassium 3.9, Chloride 106, Carbon Dioxide 25.0, Anion Gap 6, BUN 15, Creatinine 1.31 H, Estim Creat Clear Calc 61.82, Est GFR (MDRD) Af Amer 69, Est GFR (MDRD) Non-Af 57 L, BUN/Creatinine Ratio 11.5, Glucose 168 H, Calcium 8.6, Total Bilirubin 0.80, AST 26, ALT 32, Alkaline Phosphatase 70, Troponin I High Sens < 3 L, Total Protein 6.9, Albumin 3.5, Globulin 3.4, Albumin/Globulin Ratio 1.0, Lipase 143 09/08/21 13:09: Blood Type B POSITIVE, Antibody Screen NEGATIVE 09/08/21 13:09: Crossmatch See Detail 09/08/21 16:05: Troponin I High Sens < 3 L 09/08/21 16:05: Hgb 11.1 L, Hct 32.8 L 09/08/21 20:35: Troponin I High Sens < 3 L 09/08/21 23:07: Urine Color Yellow, Urine Clarity Clear, Urine pH 6.0, Ur Specific [place] 1.015, Urine Protein 15 H, Urine Glucose (UA) 1000 H, Urine Ketones 50 H, Urine Occult Blood Negative, Urine Nitrite Negative, Urine Bilirubin Negative, Urine Urobilinogen Normal, Ur Leukocyte Esterase Negative, Urine RBC 0 SEEN, Urine WBC 0 SEEN, Ur Squamous Epith Cells 0 SEEN, Urine Bacteria 0 SEEN, Urine Mucus 0 SEEN 09/08/21 23:30: Hgb 10.8 L, Hct 31.9 L 09/09/21 03:22: WBC 10.0, RBC 3.07 L, Hgb 9.5 L, Hct 26.9 L, MCV 87.6, MCH 30.9, MCHC 35.3 D, RDW Std Deviation 41.7, RDW Coeff of Rahat 13.2, Plt Count 109 L, MPV 10.5, Immature Gran % (Auto) 0.300, Neut % (Auto) 87.6 H, Lymph % (Auto) 5.8 L, [place] % (Auto) 6.3, Eos % (Auto) 0.0, Baso % (Auto) 0.0, Absolute Neuts (auto) 8.7 H, Absolute Lymphs (auto) 0.58 L, Nucleated RBC % 0 09/09/21 03:22: Sodium 141, Potassium 3.9, Chloride 113 H, Carbon Dioxide 20.0 L, Anion Gap 8, BUN 17, Creatinine 1.15, Estim Creat Clear Calc 70.42, Est GFR (MDRD) Af Amer 81, Est GFR (MDRD) Non-Af 67, BUN/Creatinine Ratio 14.8, Glucose 132 H, Calcium 6.9 L, Total Bilirubin 0.90, AST 13 L, ALT 19, Alkaline Phosphatase 36 L, Total Protein 4.6 L, Albumin 2.3 L, Globulin 2.3, Albumin/Globulin Ratio 1.0 Micro: Microbiology 09/08/21 13:03 Nasal Secretion SARS-CoV-2 Antigen (Rapid) - Final Radiography Diagnostic Testing: Radiology Impression Abdomen/Pelvis CTA 09/08/21 13:40 IMPRESSION: Fluid distention of the colon down to the rectum with fluid with an attenuation coefficient of higher than soft tissue suggests some possible mixture with blood products. Electronically Signed: Kenneth Driscoll MD at 14:39 EDT , Physical Exam Narrative GENERAL: cooperative HEENT: Atraumatic; EYES; Anicteric, Normal Conjunctiva NECK; supple, normal thyroid, RESPIRATORY: Diminished to auscultation CARDIOVASCULAR: Regular S1 S2, GI: soft, normoactive bowel sounds, : No Renal angle tenderness; EXTREMITIES: No edema, no clubbing, MUSCULOSKELETAL: no muscle wasting NEURO: Awake; no lateralizing signs. SKIN: No Rash PSYCH; Flat affect Assessment & Plan Assessment/Plan (1) Gastrointestinal hemorrhage: QUALIFIERS: GI bleed type/associated pathology: unspecified gastrointestinal hemorrhage type Qualified Code(s): K92.2 - Gastrointestinal hemorrhage, unspecified (2) Syncope and collapse: (3) Acute blood loss anemia: PLAN: Patient is a 70-year-old gentleman who presented following an episode of syncopal episode. He had apparently experienced 3 episodes of bright red stools prior to coming in. GI was consulted and admission colonoscopy revealed severe diverticulosis in the sigmoid colon descending colon and splenic flexure there was some active bleeding from a diverticular opening which was injected. EGD demonstrated reflux esophagitis 1. Acute lower GI bleed -GI was consulted and admission colonoscopy revealed severe diverticulosis in the sigmoid colon descending colon and splenic flexure there was some active bleeding from a diverticular opening which was injected. EGD demonstrated reflux esophagitis 2. Anemia ? Secondary to acute blood loss from above. Patient so far received total of 4 unit PRBC transfusion since admission we will continue with monitoring of H&H with plans to transfuse further if patient hemoglobin falls below 7 3. Syncopal episode ? Secondary to orthostasis from significant GI bleed 5. History of previous DVT/PE ? Patient was on Xarelto held on admission 6. BPH ? Per history not on any medication 7. Chronic kidney disease stage IIIa ruled out 8. Dyslipidemia ? Per history currently not on any medication Charges/Coding Visit Charges Inpatient E&M: 82241 [facility] Hosp L3
[2021-09-09 07:46] LABS: Hemoglobin A1c 5.6 % (3.8-5.6)
[2021-09-09 09:14] LABS: Hematocrit 29.3 % (40-54); Hemoglobin 10.1 g/dL (13.0-16.5); POSITIVE COUNT YES
[2021-09-09] MEDS: CHLORHEXIDINE GLUC 2% CLOTH 1 EACH TOWELETTE TOPICAL (09:24)
[2021-09-09] MEDS: levoFLOXacin IV 500 MG/100 ML BAG 100 MG IV (09:59)
--- NOTE | 2021-09-09 11:38 | CON.PCM.SX_ITS ---
Assessment & Plan Assessment/Plan (1) Acute blood loss anemia: (2) Gastrointestinal hemorrhage: QUALIFIERS: GI bleed type/associated pathology: unspecified gastrointestinal hemorrhage type Qualified Code(s): K92.2 - Gastrointestinal hemorrhage, unspecified PLAN: Present time patient is stable. No further bleeding is identified. Believe it is acceptable to start p.o. intake. If patient were to rebleed then a bleeding scan would be necessary prior to any surgical intervention. HPI Consult Data Date of Consult: 09/09/21 HPI Narrative HPI Narrative: RUI DUFFY, is a 70 M who presents via EMS as likely having 2 syncopal episodes. Patient said he woke up this morning without any problems and went to have his normal bowel movement and he saw a little bit of blood. He was not concerned because he has a history of hemorrhoids and had seen a little bit of blood previously and attributed to his blood thinner that he takes with has a history of chronic DVT. However approximately 15 minutes later he had a large bowel movement. He attempted to drive over to his son's house which is about 20 minutes away and had a syncopal episode. He pulled over on the side of the road and had another syncopal event after bowel movement. Prior to him coming to the hospital he had 3 bowel movements that were bloody mostly red in content. Patient states he was having some nausea and vomited in the back of the ambulance. Patient denies any nausea or abdominal pain currently. Patient states that yesterday he was working in his garden and he felt short of breath with this. Patient had a recent COVID-19 booster 2 days ago. Patient had a temperature of 100.2 after this. Patient denies any chest pain. In the ED with her to have a hemoglobin of 11.1. Baseline hemoglobin is 15. His BUN/creatinine ratio was 15/1.3. He has stage III CKD. He does take a baby aspirin on a daily basis. Currently at this time he is in ICU and he is received Kcentra, vitamin K and fresh frozen plasma is waiting for transfusion. His blood pressure is 103/65 with a heart rate ranging from 90 to 105.DARIUS, is a 70 M who presents GI was consulted and admission colonoscopy revealed severe diverticulosis in the sigmoid colon descending colon and splenic flexure there was some active bleed ing from a diverticular opening which was injected. EGD demonstrated reflux esophagitis Since then patient has had no further blood loss. He is not complaining of any abdominal pain. 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 Cough Dyspnea Fatigue Hematuria Hilar adenopathy Hyperglyceridemia Hypokalemia Impotence Left leg DVT Mediastinal adenopathy Mild concentric left ventricular hypertrophy (LVH) Peyronie's disease Pulmonary embolism Right ventricular dilation Rosacea Spleen enlarged Home Medications multivitamin with folic acid 1 tab PO DAILY 02/10/16 [History Last Taken 09/08/21 08:30] aspirin 81 mg tablet,delayed release 81 mg PO DAILY 05/14/17 [History Last Taken 09/08/21 08:30] rivaroxaban 20 mg tablet 20 mg PO DAILY@1800 06/12/17 [History Last Taken ] acetaminophen 1,000 mg PO Q6H PRN 09/08/21 [History Last Taken 09/07/21 22:00] Allergy/AdvReac Type Severity Reaction Status Date / Time gemfibrozil [From Lopid] Allergy Severe Unknown Verified 07/17/20 14:28 niacin Allergy Severe Unknown Verified 07/17/20 14:28 [From Niaspan Extended-Release] rosuvastatin [From Crestor] AdvReac Nausea Verified 07/17/20 14:28 Family History Brother Heart disease A-fib Sister DVT (deep venous thrombosis) Surgical History History of back surgery History of colonoscopy (~05/2019) History of hernia repair History of left knee surgery History of right knee surgery History of shoulder surgery Social History (Updated 09/08/21 @ 17:[address] Vicky Mcdonald MD) household members: spouse Smoking Status: Never smoker Electronic Cigarette Use: not used second hand exposure: No alcohol intake: never substance use type: does not use caffeine: Yes what type of physical activity do you participate in: walking frequency: 3-4 times per week duration: 15-30 minutes/day seatbelt use: always ROS Constitutional Constitutional: Denies anorexia, chills or fever(s) Cardiovascular Cardiovascular: Denies chest pain Respiratory/Chest Respiratory/Chest: Denies cough Gastrointestinal Gastrointestinal: Denies abdominal pain or hematochezia Physical Exam Const alert, oriented x3 and no apparent distress General Appearance: cooperative HEENT normocephalic and head/scalp atraumatic Eyes PERRL and EOMs intact bilaterally Resp normal respiratory effort GI normal to inspection, nondistended, normoactive bowel sounds Lab / Micro Data Result Diagrams: 09/09/21 09:00 09/09/21 03:22 Labs: Laboratory Results - last 24 hr 09/08/21 13:03: WBC 10.8, RBC 4.66, Hgb 13.9, Hct 42.0, MCV 90.1, MCH 29.8, MCHC 33.1, RDW Std Deviation 42.5, RDW Coeff of Rahat 13.0, Plt Count 168, MPV 10.8, Immature Gran % (Auto) 0.600, Neut % (Auto) 83.7 H, Lymph % (Auto) 6.9 L, [place] % (Auto) 7.6, Eos % (Auto) 0.7, Baso % (Auto) 0.5, Absolute Neuts (auto) 9.1 H, Absolute Lymphs (auto) 0.75 L, Nucleated RBC % 0 09/08/21 13:03: PT 17.5 H, INR 1.5, APTT 30.6 09/08/21 13:03: Sodium 137, Potassium 3.9, Chloride 106, Carbon Dioxide 25.0, Anion Gap 6, BUN 15, Creatinine 1.31 H, Estim Creat Clear Calc 61.82, Est GFR (MDRD) Af Amer 69, Est GFR (MDRD) Non-Af 57 L, BUN/Creatinine Ratio 11.5, Glucose 168 H, Calcium 8.6, Total Bilirubin 0.80, AST 26, ALT 32, Alkaline Phosphatase 70, Troponin I High Sens < 3 L, Total Protein 6.9, Albumin 3.5, Globulin 3.4, Albumin/Globulin Ratio 1.0, Lipase 143 09/08/21 13:09: Blood Type B POSITIVE, Antibody Screen NEGATIVE 09/08/21 13:09: Crossmatch See Detail 09/08/21 16:05: Troponin I High Sens < 3 L 09/08/21 16:05: Hgb 11.1 L, Hct 32.8 L 09/08/21 20:35: Troponin I High Sens < 3 L 09/08/21 23:07: Urine Color Yellow, Urine Clarity Clear, Urine pH 6.0, Ur Specific [place] 1.015, Urine Protein 15 H, Urine Glucose (UA) 1000 H, Urine Ketones 50 H, Urine Occult Blood Negative, Urine Nitrite Negative, Urine Bilirubin Negative, Urine Urobilinogen Normal, Ur Leukocyte Esterase Negative, Urine RBC 0 SEEN, Urine WBC 0 SEEN, Ur Squamous Epith Cells 0 SEEN, Urine Bacteria 0 SEEN, Urine Mucus 0 SEEN 09/08/21 23:30: Hgb 10.8 L, Hct 31.9 L 09/09/21 03:22: WBC 10.0, RBC 3.07 L, Hgb 9.5 L, Hct 26.9 L, MCV 87.6, MCH 30.9, MCHC 35.3 D, RDW Std Deviation 41.7, RDW Coeff of Rahat 13.2, Plt Count 109 L, MPV 10.5, Immature Gran % (Auto) 0.300, Neut % (Auto) 87.6 H, Lymph % (Auto) 5.8 L, [place] % (Auto) 6.3, Eos % (Auto) 0.0, Baso % (Auto) 0.0, Absolute Neuts (auto) 8.7 H, Absolute Lymphs (auto) 0.58 L, Nucleated RBC % 0 09/09/21 03:22: Sodium 141, Potassium 3.9, Chloride 113 H, Carbon Dioxide 20.0 L , Anion Gap 8, BUN 17, Creatinine 1.15, Estim Creat Clear Calc 70.42, Est GFR (MDRD) Af Amer 81, Est GFR (MDRD) Non-Af 67, BUN/Creatinine Ratio 14.8, Glucose 132 H, Calcium 6.9 L, Total Bilirubin 0.90, AST 13 L, ALT 19, Alkaline Phosphatase 36 L, Total Protein 4.6 L, Albumin 2.3 L, Globulin 2.3, Albumin/Globulin Ratio 1.0 09/09/21 03:22: Hemoglobin A1c 5.6 09/09/21 09:00: Hgb 10.1 L, Hct 29.3 L Micro: Microbiology 09/08/21 13:03 Nasal Secretion SARS-CoV-2 Antigen (Rapid) - Final Radiology Impression Abdomen/Pelvis CTA 09/08/21 13:40 IMPRESSION: Fluid distention of the colon down to the rectum with fluid with an attenuation coefficient of higher than soft tissue suggests some possible mixture with blood products. Electronically Signed: Kenneth Driscoll MD at 14:39 EDT ,
--- NOTE | 2021-09-09 12:20 | CASEMGMT ---
RN CM Face to Face with patient for initial transition planning/care coordination assessment. RN CM introduced self and role at [facility]. Patient lying in bed, alert and oriented, . Patient willing to participate in assessment and is able to answer all questions appropriately. Care providers, pharmacy, and demographics verified. Patient wishes to discharge home, denies need for home health at this time. Patient states he has no further needs or concerns at this time. CM to follow for discharge planning needs that may arise. PCP: Lisa Specialists: eva Neal Pharmacy: [facility] Insurance: [employer] [facility] Prescription Benefit: yes Living Will/HPOA: yes, Tomeka Obrien LNOK: Living Arrangements: Patient lives with in a single story home with 2 steps and grab bars to enter. Patient states he is independent at home. Transportation: self, DME/HHC: Patient states he has cane, crutches, raised toilet, and grab bars at home. No previous HHC or SNF Disposition Plan: Patient to discharge home with family support and follow-up plans in place. Santa ELLISN, RN, CM
--- NOTE | 2021-09-09 18:02 | PN_ITS ---
Subjective Subjective Patient is doing well and has been tolerating an increased diet. He is not have any crampy abdominal pain and has not had any bowel movements today. Objective Data Objective Data Vital Signs: Vital Signs Temp Pulse Resp BP Pulse Ox 99 F 80 23 H 111/93 H 100 09/09/21 16:00 09/09/21 17:00 09/09/21 17:00 09/09/21 17:00 09/09/21 17:00 Oxygen Flow Rate (L/min) 2 Oxygen Delivery Method Room Air Weight: 204 lb 6.99 oz Body Mass Index (BMI) 24.7 Intake & Output: Intake and Output for Last 24 Hours 09/07/21 09/08/21 09/09/21 23:59 23:59 23:59 Intake Total 2845.17 / 2845.17 4191.88 / 4191.88 Output Total 1025 / 1025 2049 / 2049 Balance 1820.17 / 1820.17 2141.88 / 2141.88 Lab / Micro Data Result Diagrams: 09/09/21 09:00 09/09/21 03:22 Labs: Laboratory Results - last 24 hr 09/08/21 13:09: Crossmatch See Detail 09/08/21 20:35: Troponin I High Sens < 3 L 09/08/21 23:07: Urine Color Yellow, Urine Clarity Clear, Urine pH 6.0, Ur Specific [place] 1.015, Urine Protein 15 H, Urine Glucose (UA) 1000 H, Urine Ketones 50 H, Urine Occult Blood Negative, Urine Nitrite Negative, Urine Bilirubin Negative, Urine Urobilinogen Normal, Ur Leukocyte Esterase Negative, Urine RBC 0 SEEN, Urine WBC 0 SEEN, Ur Squamous Epith Cells 0 SEEN, Urine Bacteria 0 SEEN, Urine Mucus 0 SEEN 09/08/21 23:30: Hgb 10.8 L, Hct 31.9 L 09/09/21 03:22: WBC 10.0, RBC 3.07 L, Hgb 9.5 L, Hct 26.9 L, MCV 87.6, MCH 30.9, MCHC 35.3 D, RDW Std Deviation 41.7, RDW Coeff of Rahat 13.2, Plt Count 109 L, MPV 10.5, Immature Gran % (Auto) 0.300, Neut % (Auto) 87.6 H, Lymph % (Auto) 5.8 L, [place] % (Auto) 6.3, Eos % (Auto) 0.0, Baso % (Auto) 0.0, Absolute Neuts (auto) 8.7 H, Absolute Lymphs (auto) 0.58 L, Nucleated RBC % 0 09/09/21 03:22: Sodium 141, Potassium 3.9, Chloride 113 H, Carbon Dioxide 20.0 L , Anion Gap 8, BUN 17, Creatinine 1.15, Estim Creat Clear Calc 70.42, Est GFR (MDRD) Af Amer 81, Est GFR (MDRD) Non-Af 67, BUN/Creatinine Ratio 14.8, Glucose 132 H, Calcium 6.9 L, Total Bilirubin 0.90, AST 13 L, ALT 19, Alkaline Phosphatase 36 L, Total Protein 4.6 L, Albumin 2.3 L, Globulin 2.3, Albumin/Globulin Ratio 1.0 09/09/21 03:22: Hemoglobin A1c 5.6 09/09/21 09:00: Hgb 10.1 L, Hct 29.3 L Micro: Microbiology 09/08/21 13:03 Nasal Secretion SARS-CoV-2 Antigen (Rapid) - Final Physical Exam Const alert General Appearance: cooperative Orientation / Consciousness: oriented to person HEENT hearing grossly normal bilaterally Head and Scalp: normal to inspection Face and Sinus: face symmetric Nose: external nose normal Mouth: oral and palatal mucosa normal Eyes conjunctivae normal General Eye: normal appearance of both eyes Neck full ROM General: normal visual inspection Lymph Lymphatic: no lymphadenopathy noted Chest inspection of chest normal and palpation of chest normal Chest: symmetrical chest wall rise Resp normal respiratory effort Effort and Inspection: able to speak in complete sentences Cardio regular rate GI non-distended Percussion: normal to percussion Rectal Exam: deferred Neuro Speech: speech normal Gait (Neuro): normal gait Assessment & Plan Assessment/Plan (1) Gastrointestinal hemorrhage: QUALIFIERS: GI bleed type/associated pathology: unspecified gastrointestinal hemorrhage type Qualified Code(s): K92.2 - Gastrointestinal hemorrhage, unspecified PLAN: Low GI bleed thought to be secondary to diverticular hemorrhage. He is status post day 1 after undergoing emergent colonoscopy with treatment of diverticular hemorrhage with epinephrine and cauterization. The area was tagged. At this time I suspect if he does not have any more bleeding by tomorrow then he should be okay to be DC'd to home off of aspirin and Xarelto for approximately 7 days. Patient be followed up in office. He will have a 10 pound weight restriction over the next 3 weeks. I expressed this to him and his at the bedside. After he is seen as an outpatient we will be able to like ly restart his anticoagulation and possibly his antiplatelet therapy. Charges/Coding Visit Charges Inpatient E&M: 85556 Subs Hosp L2
[2021-09-10] VITALS (18 sets, daily range): BP systolic 115–158; BP diastolic 68–90; PULSE 68–104; RESP 13–24; TEMP 36.9–37.3; O2SAT 93–98
[2021-09-10] MEDS: metroNIDAZOLE 500 MG/100 ML BAG 100 MG IV ×4 (00:34→16:49)
[2021-09-10] MEDS: 0.9% Normal Saline 1,000 ML 125 ML IV (02:38)
[2021-09-10 03:30] LABS: Absolute Lymphocyte Count 1.13 X10^3/uL (0.83-4.51); Absolute Neutrophil Count 6.2 X10^3/uL (2.0-7.7); Basophil# 0.03 X10^3/uL; Basophil% 0.4 % (0-1); Eosinophil# 0.14 X10^3/uL; Eosinophils% 1.8 % (0-5); Hematocrit 29.4 % (40-54); Lymphocyte # 1.13 X10^3/ul (0.83-4.51); Lymphocyte % 14.1 % (19-41); Mean Corpuscular Hgb 30.3 pg (27.0-32.0); Mean Corpuscular Volume 89.1 fL (80-94); Mean Platelet Vol. 10.6 fl (6.2-12.0); Monocyte# 0.52 X10^3/uL; Monocyte% 6.5 % (0-10); NRBC Flagged by Analyzer 0 % (0-5); Neutrophil # 6.15 X10^3/uL (2.7-7.7); Neutrophil % 76.8 % (47-70); POSITIVE COUNT YES; Platelet Count 97 K/mm3 (150-450); RBC Distribution Width CV 13.9 % (11.6-14.6); RBC Distribution Width SD 45.4 fl (35.1-43.9)
[2021-09-10 03:48] LABS: Anion Gap 4 (5-15); BUN 13 mg/dL (7-18); BUN/Creat Ratio 11.4 RATIO (10-20); Calcium,Total 7.5 mg/dL (8.5-10.1); Chloride 114 mmol/L (98-107); Creatinine, Serum 1.14 mg/dL (0.70-1.30); EST Glomerular Filtration Rate 67 mL/min (>60); Est Glom Filt Rate - Afr Amer 81 mL/min (>60); Estimated Creatinine Clearance 71.03 ml/min; Glucose 136 mg/dL (74-106); Magnesium 1.5 mg/dL (1.6-2.6); Potassium 3.7 mmol/L (3.5-5.1); Sodium Level 142 mmol/L (136-145)
--- NOTE | 2021-09-10 05:50 | PN.CC_ITS ---
Assessment & Plan Assessment/Plan (1) Acute blood loss anemia: (2) Syncope and collapse: (3) Gastrointestinal hemorrhage: QUALIFIERS: GI bleed type/associated pathology: unspecified ga strointestinal hemorrhage type Qualified Code(s): K92.2 - Gastrointestinal hemorrhage, unspecified PLAN: RECOMMENDATIONS: 1. Continue to monitor blood counts daily. 2. Stop continuous IV fluids. Liberalize diet as tolerated. 3. Continue Flagyl and Levaquin per GI recommendations. 4. Continue PPI therapy. 5. Follow-up with GI on outpatient basis prior to consideration for restarting aspirin or Xarelto. 6. The patient is medically stable for transfer out of the intensive care unit. IMPRESSIONS: 1. Acute blood loss anemia leading to syncope The patient presented to the hospital with syncope in the setting of lower GI blood loss secondary to bleeding diverticulum. The patient was evaluated by gastroenterology and underwent upper and lower endoscopy with intervention performed. The patient stabilized with supplemental fluids and transfusion of blood products. Continue to monitor H&H and transfuse if hemoglobin drops below 7 g/dL. Continue Levaquin and Flagyl to complete treatment course per GI recommendations. Continue PPI therapy as ordered. Diet can be liberalized from my perspective. 2. History of venous thromboembolic disease Systemic anticoagulation remains on hold in light of #1. The patient is to fol low-up with gastroenterology prior to considering restart of aspirin or Xarelto. 3. Chronic kidney disease/BPH/hyperlipidemia Complicates care, management, recovery and prognosis. Continue home medications as indicated. This note was generated with [employer] dictation software. It may contain incorrect words, spelling, and punctuation that were not noted in checking the note before signing. Subjective Subjective The patient was seen and examined at the bedside this morning. Events from the last 24 hours have been reviewed. The patient is currently afebrile, hemodynamically stable and maintaining appropriate oxygen saturations on room air. Hemoglobin is stable at 10.0 g/dL this morning. Nursing staff did report that the patient had several small bloody bowel movements overnight. Nev ertheless, the patient has remained clinically stable. He continues to receive supplemental IV fluid hydration and remains on an octreotide infusion. The patient is currently documented to be overall net +6.1 L for the hospitalization. The patient denies any abdominal pain. Objective Data Objective Data The patient's most recent lab work, culture data and imaging studies have all been personally reviewed. Vital Signs: Vital Signs Temp Pulse Resp BP Pulse Ox 98.8 F 90 24 H 129/71 H 95 09/10/21 04:00 09/10/21 04:00 09/10/21 04:00 09/10/21 04:00 09/10/21 04:00 Oxygen Flow Rate (L/min) 2 Oxygen Delivery Method Nasal Cannula Weight: 95.283 kg Body Mass Index (BMI) 24.7 Intake & Output: Intake and Output for Last 24 Hours 09/08/21 09/09/21 09/10/21 23:59 23:59 23:59 Intake Total 2845.17 / 2845.17 5308.13 / 5308.13 1100 / 1100 Output Total 1025 / 1025 2049 / 2049 Balance 1820.17 / 1820.17 3258.13 / 3258.13 1100 / 1100 Lab / Micro Data Result Diagrams: 09/10/21 03:20 09/10/21 03:20 Labs: Laboratory Results - last 24 hr 09/08/21 13:09: Crossmatch See Detail 09/09/21 03:22: Hemoglobin A1c 5.6 09/09/21 09:00: Hgb 10.1 L, Hct 29.3 L 09/10/21 03:20: WBC 8.0, RBC 3.30 L, Hgb 10.0 L, Hct 29.4 L, MCV 89.1, MCH 30.3, MCHC 34.0, RDW Std Deviation 45.4 H, RDW Coeff of Rahat 13.9, Plt Count 97 L, MPV 10.6, Immature Gran % (Auto) 0.400, Neut % (Auto) 76.8 H, Lymph % (Auto) 14.1 L, [place] % (Auto) 6.5, Eos % (Auto) 1.8, Baso % (Auto) 0.4, Absolute Neuts (auto) 6.2, Absolute Lymphs (auto) 1.13, Nucleated RBC % 0 09/10/21 03:20: Sodium 142, Potassium 3.7, Chloride 114 H, Carbon Dioxide 24.0, Anion Gap 4 L, BUN 13, Creatinine 1.14, Estim Creat Clear Calc 71.03, Est GFR (MDRD) Af Amer 81, Est GFR (MDRD) Non-Af 67, BUN/Creatinine Ratio 11.4, Glucose 136 H, Calcium 7.5 L, Magnesium 1.5 L Micro: Microbiology 09/08/21 13:03 Nasal Secretion SARS-CoV-2 Antigen (Rapid) - Final Physical Exam Const alert and no apparent distress General Appearance: cooperative HEENT normocephalic, head/scalp atraumatic and moist oral mucous membranes Eyes PERRL, EOMs intact bilaterally and conjunctivae normal Neck supple General: trachea midline Chest inspection of chest normal Resp normal respiratory effort Auscultation: Negative for rales, rhonchi or wheezes Cardio regular rate and regular rhythm GI normal to inspection, nondistended, normoactive bowel sounds Extremity no clubbing, cyanosis or edema Skin no rashes or lesions noted Neuro CN's II-XII intact bilaterally, moves all extremities and no focal motor deficits Psych cooperative and affect normal Charges/Coding Visit Charges Inpatient E&M: 01374 Subs Hosp L3
--- NOTE | 2021-09-10 07:19 | PCM.PN.HOSP ---
Subjective Subjective Patient seen blood pressure and hemoglobin appears to have stabilized patient however continues to experience bleeding per rectum Objective Data Objective Data Vital Signs: Vital Signs Temp Pulse Resp BP Pulse Ox 98.8 F 97 13 148/83 H 95 09/10/21 04:00 09/10/21 07:00 09/10/21 07:00 09/10/21 07:00 09/10/21 07:00 Oxygen Flow Rate (L/min) 2 Oxygen Delivery Method Nasal Cannula Weight: 95.283 kg Body Mass Index (BMI) 24.7 Intake & Output: Intake and Output for Last 24 Hours 09/08/21 09/09/21 09/10/21 23:59 23:59 23:59 Intake Total 2845.17 / 2845.17 5308.13 / 5308.13 1689.58 / 1689.58 Output Total 1025 / 1025 2049 / 2049 Balance 1820.17 / 1820.17 3258.13 / 3258.13 1689.58 / 1689.58 Lab / Micro Data Result Diagrams: 09/10/21 03:20 09/10/21 03:20 Labs: Laboratory Results - last 24 hr 09/08/21 13:09: Crossmatch See Detail 09/09/21 03:22: Hemoglobin A1c 5.6 09/09/21 09:00: Hgb 10.1 L, Hct 29.3 L 09/10/21 03:20: WBC 8.0, RBC 3.30 L, Hgb 10.0 L, Hct 29.4 L, MCV 89.1, MCH 30.3, MCHC 34.0, RDW Std Deviation 45.4 H, RDW Coeff of Rahat 13.9, Plt Count 97 L, MPV 10.6, Immature Gran % (Auto) 0.400, Neut % (Auto) 76.8 H, Lymph % (Auto) 14.1 L, [place] % (Auto) 6.5, Eos % (Auto) 1.8, Baso % (Auto) 0.4, Absolute Neuts (auto) 6.2, Absolute Lymphs (auto) 1.13, Nucleated RBC % 0 09/10/21 03:20: Sodium 142, Potassium 3.7, Chloride 114 H, Carbon Dioxide 24.0, Anion Gap 4 L, BUN 13, Creatinine 1.14, Estim Creat Clear Calc 71.03, Est GFR (MDRD) Af Amer 81, Est GFR (MDRD) Non-Af 67, BUN/Creatinine Ratio 11.4, Glucose 136 H, Calcium 7.5 L, Magnesium 1.5 L Micro: Microbiology 09/08/21 13:03 Nasal Secretion SARS-CoV-2 Antigen (Rapid) - Final Physical Exam Narrative GENERAL: cooperative HEENT: Atraumatic; EYES; Anicteric, Normal Conjunctiva NECK; supple, normal thyroid, RESPIRATORY: Diminished to auscultation CARDIOVASCULAR: Regular S1 S2, GI: soft, normoactive bowel sounds, : No Renal angle tenderness; EXTREMITIES: No edema, no clubbing, MUSCULOSKELETAL: no muscle wasting NEURO: Awake; no lateralizing signs. SKIN: No Rash PSYCH; Flat affect Assessment & Plan Assessment/Plan (1) Gastrointestinal hemorrhage: QUALIFIERS: GI bleed type/associated pathology: unspecified gastrointestinal hemorrhage type Qualified Code(s): K92.2 - Gastrointestinal hemorrhage, unspecified (2) Syncope and collapse: (3) Acute blood loss anemia: PLAN: Patient is a 70-year-old gentleman who presented following an episode of syncopal episode. He had apparently experienced 3 episodes of bright red stools prior to coming in. GI was consulted and admission colonoscopy revealed severe diverticulosis in the sigmoid colon descending colon and splenic flexure there was some active bleeding from a diverticular opening which was injected. EGD demonstrated reflux esophagitis 1. Acute lower GI bleed -GI was consulted and admission colonoscopy revealed severe diverticulosis in the sigmoid colon descending colon and splenic flexure there was some active bleeding from a diverticular opening which was injected. EGD demonstrated reflux esophagitis -09/10/2021; Patient seen blood pressure and hemoglobin appears to have stabilized patient however continues to experience bleeding per rectum. Patient will be ready for discharge when bleeding stops with plans to hold aspirin and Xarelto for 7 days with subsequent follow-up with GI 2. Anemia ? Secondary to acute blood loss from above. Patient so far received total of 4 unit PRBC transfusion since admission we will continue with monitoring of H&H with plans to transfuse further if patient hemoglobin falls below 7 ? 09/10/2021 hemoglobin stable at 10.0 3. Syncopal episode ? Secondary to orthostasis from significant GI bleed 5. History of previous DVT/PE ? Patient was on Xarelto held on admission 6. BPH ? Per history not on any medication 7. Chronic kidney disease stage IIIa ruled out 8. Dyslipidemia ? Per history currently not on any medication Charges/Coding Visit Charges Inpatient E&M: 71617 Subs Hosp L2
[2021-09-10] MEDS: levoFLOXacin IV 500 MG/100 ML BAG 100 MG IV (09:22)
[2021-09-10] MEDS: Acetaminophen 325 MG Tablet 650 MG PO ×2 (12:21→21:35)
[2021-09-10] MEDS: 0.9% Saline Lock 10 ML Syringe IV (13:26)
[2021-09-11 00:59] VITALS: BP 106/64; PULSE 68; RESP 14; TEMP 37.3; O2SAT 93
[2021-09-11] MEDS: metroNIDAZOLE 500 MG/100 ML BAG 100 MG IV ×2 (01:02→05:51)
[2021-09-11 03:41] VITALS: PULSE 58
[2021-09-11 06:24] LABS: Absolute Neutrophil Count 5.8 X10^3/uL (2.0-7.7); Basophil# 0.04 X10^3/uL; Basophil% 0.5 % (0-1); Eosinophil# 0.23 X10^3/uL; Hematocrit 30.4 % (40-54); Hemoglobin 10.1 g/dL (13.0-16.5); Lymphocyte % 15.5 % (19-41); Mean Corp Hgb Conc 33.2 g/dL (32-36); Mean Corpuscular Hgb 29.9 pg (27.0-32.0); Mean Corpuscular Volume 89.9 fL (80-94); Mean Platelet Vol. 10.5 fl (6.2-12.0); Monocyte% 6.4 % (0-10); NRBC Flagged by Analyzer 0 % (0-5); Neutrophil # 5.75 X10^3/uL (2.7-7.7); Neutrophil % 74.1 % (47-70); Platelet Count 130 K/mm3 (150-450); RBC Distribution Width CV 13.6 % (11.6-14.6); RBC Distribution Width SD 45.1 fl (35.1-43.9); Red Blood Count 3.38 M/mm3 (4.6-6.2); White Blood Count 7.8 K/mm3 (4.4-11.0)
[2021-09-11 06:36] VITALS: PULSE 58
[2021-09-11 06:45] LABS: Anion Gap 3 (5-15); BUN 11 mg/dL (7-18); BUN/Creat Ratio 9.7 RATIO (10-20); Calcium,Total 7.8 mg/dL (8.5-10.1); Chloride 111 mmol/L (98-107); Creatinine, Serum 1.13 mg/dL (0.70-1.30); EST Glomerular Filtration Rate 68 mL/min (>60); Est Glom Filt Rate - Afr Amer 82 mL/min (>60); Estimated Creatinine Clearance 71.66 ml/min; Glucose 127 mg/dL (74-106); Potassium 3.4 mmol/L (3.5-5.1); Sodium Level 141 mmol/L (136-145)
--- NOTE | 2021-09-11 06:45 | PCM.PN.INT ---
Assessment & Plan Assessment/Plan (1) Acute blood loss anemia: (2) Syncope and collapse: (3) Gastrointestinal hemorrhage: QUALIFIERS: GI bleed type/associated pathology: unspecified gastrointestinal hemorrhage type Qualified Code(s): K92.2 - Gastrointestinal hemorrhage, unspecified PLAN: RECOMMENDATIONS: 1. Continue to monitor blood counts daily. 2. Potassium repletion as ordered. 3. Continue Flagyl and Levaquin per GI recommendations. 4. Continue PPI therapy. 5. Follow-up with GI on outpatient basis prior to consideration for restarting aspirin or Xarelto. 6. Will sign off from a critical care perspective. Please call with any additional questions. IMPRESSIONS: 1. Acute blood loss anemia leading to syncope The patient presented to the hospital with syncope in the setting of lower GI blood loss secondary to bleeding diverticulum. The patient was evaluated by gastroenterology and underwent upper and lower endoscopy with intervention performed. The patient stabilized with supplemental fluids and transfusion of blood products. Continue to monitor H&H and transfuse if hemoglobin drops below 7 g/dL. Continue Levaquin and Flagyl to complete treatment course per GI recommendations. Continue PPI therapy as ordered. 2. History of venous thromboembolic disease Systemic anticoagulation remains on hold in light of #1. The patient is to follow-up with gastroenterology prior to considering restart of aspirin or Xarelto. 3. Chronic kidney disease/BPH/hyperlipidemia Complicates care, management, recovery and prognosis. Continue home medications as indicated. This note was generated with [email or web address] dictation software. It may contain incorrect words, spelling, and punctuation that were not noted in checking the note before signing. Subjective Subjective The patient was seen and examined at the bedside this morning. Events from the last 24 hours have been reviewed. The patient is currently afebrile, hemodynamically stable and maintaining appropriate oxygen saturations on room air. Blood counts remained stable this morning. Potassium is low at 3.4. No overnight issues were identified. Objective Data Objective Data The patient's most recent lab work, culture data and imaging studies have all been personally reviewed. Vital Signs: Vital Signs Temp Pulse Resp BP Pulse Ox 99.1 F 58 L 14 106/64 93 09/11/21 00:59 09/11/21 06:36 09/11/21 00:59 09/11/21 00:59 09/11/21 00:59 Oxygen Flow Rate (L/min) 2 Oxygen Delivery Method Room Air Weight: 96.2 kg Body Mass Index (BMI) 24.7 Intake & Output: Intake and Output for Last 24 Hours 09/09/21 09/10/21 09/11/21 23:59 23:59 23:59 Intake Total 5308.13 / 5308.13 3215.66 / 3335.66 420 / 420 Output Total 2049 / 2049 Balance 3258.13 / 3258.13 3215.66 / 3335.66 420 / 420 Lab / Micro Data Attestation: I reviewed the patient's lab results. Result Diagrams: 09/11/21 05:45 09/11/21 05:45 Labs: Laboratory Results - last 24 hr 09/11/21 05:45: WBC 7.8, RBC 3.38 L, Hgb 10.1 L, Hct 30.4 L, MCV 89.9, MCH 29.9, MCHC 33.2, RDW Std Deviation 45.1 H, RDW Coeff of Rahat 13.6, Plt Count 130 L, MPV 10.5, Immature Gran % (Auto) 0.500, Neut % (Auto) 74.1 H, Lymph % (Auto) 15.5 L, [place] % (Auto) 6.4, Eos % (Auto) 3.0, Baso % (Auto) 0.5, Absolute Neuts (auto) 5.8, Absolute Lymphs (auto) 1.20, Nucleated RBC % 0 09/11/21 05:45: Sodium 141, Potassium 3.4 L, Chloride 111 H, Carbon Dioxide 27.0, Anion Gap 3 L, BUN 11, Creatinine 1.13, Estim Creat Clear Calc 71.66, Est GFR (MDRD) Af Amer 82, Est GFR (MDRD) Non-Af 68, BUN/Creatinine Ratio 9.7 L, Glucose 127 H, Calcium 7.8 L Micro: Microbiology 09/08/21 13:03 Nasal Secretion SARS-CoV-2 Antigen (Rapid) - Final Physical Exam Const alert and no apparent distress General Appearance: cooperative HEENT normocephalic, head/scalp atraumatic and moist oral mucous membranes Eyes PERRL, EOMs intact bilaterally and conjunctivae normal Neck supple General: trachea midline Chest inspection of chest normal Resp normal respiratory effort Auscultation: Negative for rales, rhonchi or wheezes Cardio regular rate and regular rhythm GI normal to inspection, nondistended, normoactive bowel sounds Extremity no clubbing, cyanosis or edema Skin no rashes or lesions noted Neuro CN's II-XII intact bilaterally, moves all extremities and no focal motor deficits Psych cooperative and affect normal Charges/Coding Visit Charges Inpatient E&M: 17841 Subs Hosp L2
--- NOTE | 2021-09-11 07:32 | DS.PCM_ITS ---
Providers Date of Admission: 09/08/21 Primary Care Physician: Dr. Ellis Gonzalez MD Consultations 09/08/21 15:42 Consult: Gastroenterology Routine Consulting Provider: Steven [facility] Reason for Consult: GI bleed, syncopal events. EMERGENT Consult: No Notified: Yes Date Notified: 09/08/21 Time Notified: 14:20 Method of Notification: called per ED. Consult: General Surgery Routine Consulting Provider: Erlin Dutta Reason for Consult: GI bleed, LLQ abdominal pain EMERGENT Consult: No Notified: Yes Date Notified: 09/08/21 Time Notified: 14:44 Method of Notification: call Consult: Scanner Operator / Pulmonary Medicine Routine Consulting Provider: Brennen Flores Reason for Consult: Syncopal events, GI bleed EMERGENT Consult: No Notified: Yes Date Notified: 09/08/21 Time Notified: 14:21 Method of Notification: Text Reason For Visit: SYNCOPE, GI BLEED Diagnosis Discharge Diagnosis (1) Acute blood loss anemia: Status: Acute Code(s): D62 - Acute posthemorrhagic anemia (2) Syncope and collapse: Status: Acute Code(s): R55 - Syncope and collapse (3) Gastrointestinal hemorrhage: Status: Acute Code(s): K92.2 - Gastrointestinal hemorrhage, unspecified Qualifiers: GI bleed type/associated pathology: unspecified gastrointestinal hemorrhage type Qualified Code(s): K92.2 - Gastrointestinal hemorrhage, unspecified Medications at Discharge Home Medications multivitamin with folic acid 1 tab PO DAILY 02/10/16 acetaminophen 1,000 mg PO Q6H PRN 09/08/21 Xarelto 20 mg PO DAILY@1800 #0 tab 09/11/21 aspirin 81 mg PO DAILY #0 tab 09/11/21 levofloxacin 500 mg PO DAILY #7 tab 09/11/21 metronidazole 500 mg PO TID #20 tab 09/11/21 pantoprazole [Protonix] 40 mg PO DAILY #30 tab 09/11/21 Hospital Course Procedures Colonoscopy and EGD Summary of Care Provided Minutes Spent on Discharge: 35 Hospital Course: Patient is a 70-year-old gentleman who presented following an episode of syncopal episode. He had apparently experienced 3 episodes of bright red stools prior to coming in. GI was consulted and admission colonoscopy revealed severe diverticulosis in the sigmoid colon descending colon and splenic flexure there was some active bleeding from a diverticular opening which was injected. EGD demonstrated reflux esophagitis 1. Acute lower GI bleed -GI was consulted and admission colonoscopy revealed severe diverticulosis in the sigmoid colon descending colon and splenic flexure there was some active bleeding from a diverticular opening which was injected. EGD demonstrated reflux esophagitis -09/10/2021; Patient seen blood pressure and hemoglobin appears to have stabilized patient however continues to experience bleeding per rectum. Patient will be ready for discharge when bleeding stops with plans to hold aspirin and Xarelto for 7 days with subsequent follow-up with GI 2. Anemia ? Secondary to acute blood loss from above. Patient so far received total of 4 unit PRBC transfusion since admission we will continue with monitoring of H&H with plans to transfuse further if patient hemoglobin falls below 7 ? 09/10/2021 hemoglobin stable at 10.0 3. Syncopal episode ? Secondary to orthostasis from significant GI bleed 5. History of previous DVT/PE ? Patient was on Xarelto held on admission 6. BPH ? Per history not on any medication 7. Chronic kidney disease stage IIIa ruled out 8. Dyslipidemia ? Per history currently not on any medication Physical Exam Narrative GENERAL: cooperative HEENT: Atraumatic; EYES; Anicteric, Normal Conjunctiva NECK; supple, normal thyroid, RESPIRATORY: Diminished to auscultation CARDIOVASCULAR: Regular S1 S2, GI: soft, normoactive bowel sounds, : No Renal angle tenderness; EXTREMITIES: No edema, no clubbing, MUSCULOSKELETAL: no muscle wasting NEURO: Awake; no lateralizing signs. SKIN: No Rash PSYCH; Flat affect Weight / BMI Weight Weight: 96.2 kg Body Mass Index (BMI) 24.7 ABG / Lab / Microbiology Data Result Diagrams: 09/11/21 05:45 09/11/21 05:45 Laboratory: Laboratory Results - last 24 hr 09/11/21 05:45: WBC 7.8, RBC 3.38 L, Hgb 10.1 L, Hct 30.4 L, MCV 89.9, MCH 29.9, MCHC 33.2, RDW Std Deviation 45.1 H, RDW Coeff of Rahat 13.6, Plt Count 130 L, MPV 10.5, Immature Gran % (Auto) 0.500, Neut % (Auto) 74.1 H, Lymph % (Auto) 15.5 L, [place] % (Auto) 6.4, Eos % (Auto) 3.0, Baso % (Auto) 0.5, Absolute Neuts (auto) 5.8, Absolute Lymphs (auto) 1.20, Nucleated RBC % 0 09/11/21 05:45: Sodium 141, Potassium 3.4 L, Chloride 111 H, Carbon Dioxide 27.0, Anion Gap 3 L, BUN 11, Creatinine 1.13, Estim Creat Clear Calc 71.66, Est GFR (MDRD) Af Amer 82, Est GFR (MDRD) Non-Af 68, BUN/Creatinine Ratio 9.7 L, Glucose 127 H, Calcium 7.8 L Microbiology: Microbiology 09/08/21 13:03 Nasal Secretion SARS-CoV-2 Antigen (Rapid) - Final D/C Instructions Discharge Diet: No restrictions Discharge Activity: Return to Normal Activity Lifting Restricted to (Lbs): 10 Call your doctor if you observe: Fever of 101 or Higher, Shortness of breath, Fainting spells and Chest pain Meaningful Use Info Meaningful Use Diagnoses (Choose all that apply): None applicable Discharge Plan Admission Admit Date/Time: 09/08/21 14:19 Attending Provider: Torsten Garcia Primary Care Provider: Ellis Gonzalez Consulting Providers: Vicky Mcdonald ; Erlin Dutta ; Brennen Flores Discharge Orders/Prescriptions Prescriptions: New levofloxacin 500 mg tablet 500 mg PO DAILY Qty: 7 RF: 0 metronidazole 500 mg tablet 500 mg PO TID Qty: 20 RF: 0 pantoprazole [Protonix] 40 mg tablet,delayed release (DR/EC) 40 mg PO DAILY Qty: 30 RF: 0 Continued multivitamin with folic acid 1 TABLET tablet 1 tab PO DAILY RF: 0 acetaminophen 500 mg Tablet 1,000 mg PO Q6H PRN (Reason: Pain) RF: 0 aspirin 81 mg tablet,delayed release (DR/EC) 81 mg PO DAILY Qty: 0 RF: 0 Xarelto 20 mg tablet 20 mg PO DAILY@1800 Qty: 0 RF: 0 Referrals / Follow Up: Ellis Gnozalez MD [Primary Care Provider] - Within 1 Week Karson Mariano DO [STAFF PHYSICIAN] - In 1 Week Disposition Disposition (needs filled in before D/C Order can be placed): Home, Self Care Charges/Coding Visit Charges Inpatient E&M: 27288 Disch Hosp
[2021-09-11 07:57] VITALS: O2SAT 94
[2021-09-11 08:29] VITALS: BP 132/64; PULSE 87; RESP 16; TEMP 36.7; O2SAT 94
[2021-09-11] MEDS: Potassium Chloride Oral Tablet 20 MEQ 40 MEQ PO (08:31)
[2021-09-11] MEDS: levoFLOXacin IV 500 MG/100 ML BAG 100 MG IV (08:32)
--- NOTE | 2021-09-11 10:12 | CASEMGMT ---
Pt has been up in room independently and states no concerns with going home at time of discharge. Pt ready for d/c. Kelvin GRIER CM
== END 2021-09-11 11:00 | disposition home or self-care (01) | DRG 378 ==
LOC: ED 14:29 → ICU 14:37 → PCU 09-10 12:36
PROVIDERS: Internal Medicine Critical Care Medicine; Internal Medicine Gastroenterology; Admitting Provider Family Medicine; Emergency Provider Emergency Medicine; PCP Family Medicine; Visit Provider Internal Medicine
PROC: 0DJD8ZZ Inspection of Lower Intestinal Tract, Via Natural or Artificial Opening Endoscopic (ICD-10-PCS; CPT 45378; principal; 2021-09-08 17:55)
DX: K57.31 Diverticulosis of large intestine without perforation or abscess with bleeding (principal); D62 Acute posthemorrhagic anemia; K92.0 Hematemesis; N18.30 Chronic kidney disease, stage 3 unspecified; K44.9 Diaphragmatic hernia without obstruction or gangrene; E78.5 Hyperlipidemia, unspecified; N40.0 Benign prostatic hyperplasia without lower urinary tract symptoms; K92.1 Melena; Z79.82 Long term (current) use of aspirin; R73.9 Hyperglycemia, unspecified; Z66 Do not resuscitate; K21.00 Gastro-esophageal reflux disease with esophagitis, without bleeding; Z86.718 Personal history of other venous thrombosis and embolism; Z86.711 Personal history of pulmonary embolism
CPT/HCPCS: 74174; 80048; 80053; 81001; 83036; 83690; 83735; 84484; 85014; 85018; 85025; 85610; 85730; 86644; 86850; 86900; 86901; 86920; 87811; 93005; 94640; 99285; J7030; J7168; P9016; Q9967; A4216; A4648; J2405; J3490

== ENCOUNTER → 2021-09-18 | Outpatient (CLI) | payer MEDICARE, SELFPAY ==
[2021-09-18 14:51] LABS: Absolute Lymphocyte Count 0.74 X10^3/uL (0.83-4.51); Absolute Neutrophil Count 3.4 X10^3/uL (2.0-7.7); Basophil# 0.04 X10^3/uL; Basophil% 0.8 % (0-1); Eosinophil# 0.06 X10^3/uL; Eosinophils% 1.2 % (0-5); Hematocrit 36.8 % (40-54); Hemoglobin 12.2 g/dL (13.0-16.5); Lymphocyte # 0.74 X10^3/ul (0.83-4.51); Lymphocyte % 14.9 % (19-41); Mean Corp Hgb Conc 33.2 g/dL (32-36); Mean Corpuscular Hgb 30.3 pg (27.0-32.0); Mean Corpuscular Volume 91.3 fL (80-94); Mean Platelet Vol. 9.8 fl (6.2-12.0); Monocyte# 0.56 X10^3/uL; Monocyte% 11.3 % (0-10); NRBC Flagged by Analyzer 0 % (0-5); Neutrophil # 3.41 X10^3/uL (2.7-7.7); Neutrophil % 68.8 % (47-70); Platelet Count 282 K/mm3 (150-450); RBC Distribution Width CV 14.4 % (11.6-14.6); RBC Distribution Width SD 47.3 fl (35.1-43.9); Red Blood Count 4.03 M/mm3 (4.6-6.2)
== END | disposition home or self-care (01) ==
LOC: MFPLAB 11:54
PROVIDERS: PCP Family Medicine; Referring Provider Family Medicine; Visit Provider Family Medicine
DX: D64.9 Anemia, unspecified (principal)
CPT/HCPCS: 36415; 85025

== ENCOUNTER 2021-10-09 12:44 | Emergency (ER) | payer MEDICARE, SELFPAY ==
[2021-10-09 12:46] VITALS: BP 162/98; PULSE 75; RESP 18; TEMP 35.9; O2SAT 99; BMI 24.7
--- NOTE | 2021-10-09 14:08 | EDS_ITS ---
HPI <SIGIFREDO Ojeda - Last Filed: 10/09/21 16:41> History of Present Illness Chief Complaint: GI Bleed Narrative Narrative: 70 year old male with PMH of GI bleed, DVT/PE on Xarelto presents with rectal bleeding. This morning he had two normal appearing BMs except there was some bright red blood. No abdominal pain. He had a large GI bleed a month ago and was admitted and needed 4 units of blood. He has an endoscopy and colonoscopy and states Dr. Friend cauterized a bleeding vessel. He took antibiotics and Prevacid afterward and was doing well. 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 Cough Dyspnea Fatigue Hematuria Hilar adenopathy Hyperglyceridemia Hypokalemia Impotence Left leg DVT Mediastinal adenopathy Mild concentric left ventricular hypertrophy (LVH) Peyronie's disease Pulmonary embolism Right ventricular dilation Rosacea Spleen enlarged Home Medications multivitamin with folic acid 400 mcg tablet 1 tab PO DAILY 02/10/16 [History Last Taken 09/08/21 08:30] acetaminophen 500 mg tablet 1,000 mg PO Q6H PRN Pain 09/08/21 [History Last Taken 09/07/21 22:00] pantoprazole 40 mg tablet,delayed release (Protonix) 40 mg PO DAILY #30 tabs 09/11/21 [Rx Last Taken Unknown] rivaroxaban 20 mg tablet (Xarelto) 20 mg PO DAILY@1800 #0 tabs 09/11/21 [Rx Last Taken 09/07/21] sildenafil 100 mg tablet tab 10/09/21 [History Last Taken Unknown] Allergy/AdvReac Type Severity Reaction Status Date / Time gemfibrozil [From Lopid] Allergy Severe Unknown Verified 10/09/21 12:45 niacin Allergy Severe Unknown Verified 10/09/21 12:45 [From Niaspan Extended-Release] rosuvastatin [From Crestor] AdvReac Nausea Verified 10/09/21 12:45 Family History Brother Heart disease A-fib Sister DVT (deep venous thrombosis) Surgical History History of back surgery History of colonoscopy (~05/2019) History of hernia repair History of left knee surgery History of right knee surgery History of shoulder surgery Social History (Updated 09/08/21 @ 17:[address] Vicky Mcdonald MD) household members: spouse Smoking Status: Never smoker Electronic Cigarette Use: not used second hand exposure: No alcohol intake: never substance use type: does not use caffeine: Yes what type of physical activity do you participate in: walking frequency: 3-4 times per week duration: 15-30 minutes/day seatbelt use: always ROS <SIGIFREDO Ojeda - Last Filed: 10/09/21 16:41> ROS ED ROS Narrative Constitutional: Negative for fever, chills, malaise. Eyes: Negative for visual change. ENT: Negative for sore throat, ear pain, rhinorrhea. CVS: Negative for palpitations, chest pain, syncope. Respiratory: Negative for shortness of breath, cough, orthopnea. GI: Positive for rectal bleeding. Negative for abdominal pain, nausea, vomiting, diarrhea, constipation, melena, hematochezia. : Negative for dysuria, hematuria or frequency. Neuro: Negative for headache, motor/sensory dysfunction. Skin: Negative for rash, abscess, or wound. Musc: Negative for joint pain, swelling, trauma. Heme: Positive for easy bleeding on OAC, negative for lymphadenopathy. EXAM <SIGIFREDO Ojeda - Last Filed: 10/09/21 16:41> Physical Exam Narrative Exam Narrative: CONST: Patient sitting in no acute distress. EYES: Normal inspection. NECK: Normal inspection. RESP: No respiratory distress, CTAB. CVS: Regular rate and rhythm, no murmur, no gallop. ABD: Soft and nontender, no guarding or rebound, nondistended. PIEOR: No stool or blood present in the rectum, unremarkable. SKIN: Color normal, no rash, warm, dry, intact. EXTREMITIES: Normal appearance, no pedal edema. NEURO: Oriented x4. PSYCH: Normal affect. Const Vital Signs: 10/09/21 12:46 10/09/21 14:13 Temperature 96.6 F L Temperature Source Temporal Pulse Rate 75 68 Respiratory Rate 18 Blood Pressure 162/98 H 137/100 H Blood Pressure Mean 119 112 Pulse Ox 99 Oxygen Delivery Method Room Air <Dr. Rolf Estes MD - Last Filed: 10/09/21 16:42> Physical Exam Const Vital Signs: 10/09/21 12:46 10/09/21 14:13 Temperature 96.6 F L Temperature Source Temporal Pulse Rate 75 68 Respiratory Rate 18 Blood Pressure 162/98 H 137/100 H Blood Pressure Mean 119 112 Pulse Ox 99 Oxygen Delivery Method Room Air MDM <SIGIFREDO Ojeda - Last Filed: 10/09/21 16:41> [facility] Narrative Medical decision making narrative: Patient has a history of GI bleed 1 month ago and presents with rectal bleeding today. He appears well nontoxic. Afebrile and vital signs within normal limits. Abdomen is soft, nontender. PIERO has no stool or bright red blood present but is Hemoccult positive. Hemoglobin stable at 12.5. BMP unre markable. Review of GI records show endoscopy revealed esophagitis and a hiatal hernia. Colonoscopy showed severe diverticulosis from the hepatic flexure through the transverse, descending and sigmoid colon. The bleeding was from a diverticular opening that was cauterized. Case was discussed with Dr. Mariano who was comfortable with the patient going home and stopping his Xarelto for 5 days. He was offered admission if he was concerned but he would not necessarily rescoped, it would just be to monitor blood counts. Patient comfortable going home and will stop anticoagulation for 5 days and follow-up with Dr. Mariano. If any symptoms worsen return to the ER. 1. GI bleed Lab Data Labs: Laboratory Results - last 24 hr 10/09/21 10/09/21 14:10 14:10 WBC 4.0 L RBC 4.22 L Hgb 12.5 L Hct 37.6 L MCV 89.1 MCH 29.6 MCHC 33.2 RDW Std Deviation 43.7 RDW Coeff of Rahat 13.4 Plt Count 149 L MPV 10.5 Immature Gran % (Auto) 0.300 Neut % (Auto) 56.8 Lymph % (Auto) 27.7 [place] % (Auto) 11.6 H Eos % (Auto) 2.8 Baso % (Auto) 0.8 Absolute Neuts (auto) 2.3 Absolute Lymphs (auto) 1.10 Nucleated RBC % 0 Sodium 139 Potassium 4.2 Chloride 108 H Carbon Dioxide 30.0 Anion Gap 1 L BUN 15 Creatinine 1.20 Estim Creat Clear Calc 67.48 Est GFR (MDRD) Af Amer 77 Est GFR (MDRD) Non-Af 63 BUN/Creatinine Ratio 12.5 Glucose 115 H Calcium 9.1 <Dr. Rolf Estes MD - Last Filed: 10/09/21 16:42> [facility] Narrative Medical decision making narrative: Patient has a history of GI bleed 1 month ago and presents with rectal bleeding today. He appears well nontoxic. Afebrile and vital signs within normal limits. Abdomen is soft, nontender. PIERO has no stool or bright red blood present but is Hemoccult positive. Hemoglobin stable at 12.5. BMP unremarkable. Review of GI records show endoscopy revealed esophagitis and a hiatal hernia. Colonoscopy showed severe diverticulosis from the hepatic flexure through the transverse, descending and sigmoid colon. The bleeding was from a diverticular opening that was cauterized. Case was discussed with Dr. Mariano I have personally performed a face to face assessment of the patient and have reviewed the ARSLAN Note. I performed a substantive portion of the visit including all aspects of the following. My cabrera findings include: History is [70-year-old male seen with our physician medical support assistant. History of prior diverticular bleed. Had a prior colonoscopy and cauterization. Within the last month. At that time patient needed 4 units of blood. Today he had several episodes of small blood. He is on Xarelto long-term for prior DVT and PE.] Exam is [well-appearing 70-year-old male. Vital signs stable afebrile. Lungs are clear. Heart regular rhythm. Abdomen soft nontender. Moving all 4 extremities.] Medical Decision Making [CBC shows a hemoglobin 12.5 previously was 12.2. Clinically patient looks well. We discussion with his GI DrPawel Friend and he is comfortable eyes are weak as is the patient with him being discharged home. Hold his Xarelto for 5 days and follow-up. Patient knows to return if worse.] Other additions or changes: [None] Lab Data Labs: Laboratory Results - last 24 hr 10/09/21 10/09/21 14:10 14:10 WBC 4.0 L RBC 4.22 L Hgb 12.5 L Hct 37.6 L MCV 89.1 MCH 29.6 MCHC 33.2 RDW Std Deviation 43.7 RDW Coeff of Rahat 13.4 Plt Count 149 L MPV 10.5 Immature Gran % (Auto) 0.300 Neut % (Auto) 56.8 Lymph % (Auto) 27.7 [place] % (Auto) 11.6 H Eos % (Auto) 2.8 Baso % (Auto) 0.8 Absolute Neuts (auto) 2.3 Absolute Lymphs (auto) 1.10 Nucleated RBC % 0 Sodium 139 Potassium 4.2 Chloride 108 H Carbon Dioxide 30.0 Anion Gap 1 L BUN 15 Creatinine 1.20 Estim Creat Clear Calc 67.48 Est GFR (MDRD) Af Amer 77 Est GFR (MDRD) Non-Af 63 BUN/Creatinine Ratio 12.5 Glucose 115 H Calcium 9.1 Discharge Plan Triage Chief Complaint: GI Bleed ED Midlevel Provider: Promise Purdy ED Provider: Rolf Estes Dx/Rx/DC Orders Clinical Impression: History of rectal bleeding Instructions: Bleeding Gastrointestinal Prescriptions: No Action multivitamin with folic acid 1 TABLET tablet 1 tab PO DAILY Label Comments: Supplement acetaminophen 500 mg Tablet 1,000 mg PO Q6H PRN (Reason: Pain) Xarelto 20 mg tablet 20 mg PO DAILY@1800 Qty: 0 0RF Rx Instructions: Patient to hold rivaroxaban for 7 days pantoprazole [Protonix] 40 mg tablet,delayed release (DR/EC) 40 mg PO DAILY Qty: 30 0RF sildenafil 100 mg tablet Label Comments: TAKE 1 TABLET BY MOUTH EVERY DAY Primary Care Provider: Ellis Gonzalez Referrals: Ellis Gonzalez MD [Primary Care Provider] - Activity Restrictions/Additional Instructions: Follow up with Dr. Mariano. If bleeding worsens return to the ER. Disposition Disposition: Home, Self Care
[2021-10-09 14:13] VITALS: BP 137/100; PULSE 68
[2021-10-09 14:25] LABS: Absolute Neutrophil Count 2.3 X10^3/uL (2.0-7.7); Basophil# 0.03 X10^3/uL; Basophil% 0.8 % (0-1); Eosinophil# 0.11 X10^3/uL; Eosinophils% 2.8 % (0-5); Hematocrit 37.6 % (40-54); Hemoglobin 12.5 g/dL (13.0-16.5); Lymphocyte % 27.7 % (19-41); Mean Corp Hgb Conc 33.2 g/dL (32-36); Mean Corpuscular Hgb 29.6 pg (27.0-32.0); Mean Corpuscular Volume 89.1 fL (80-94); Mean Platelet Vol. 10.5 fl (6.2-12.0); Monocyte# 0.46 X10^3/uL; Monocyte% 11.6 % (0-10); NRBC Flagged by Analyzer 0 % (0-5); Neutrophil # 2.26 X10^3/uL (2.7-7.7); Neutrophil % 56.8 % (47-70); Platelet Count 149 K/mm3 (150-450); RBC Distribution Width CV 13.4 % (11.6-14.6); RBC Distribution Width SD 43.7 fl (35.1-43.9); Red Blood Count 4.22 M/mm3 (4.6-6.2)
[2021-10-09 14:37] LABS: Anion Gap 1 (5-15); BUN 15 mg/dL (7-18); BUN/Creat Ratio 12.5 RATIO (10-20); Calcium,Total 9.1 mg/dL (8.5-10.1); Chloride 108 mmol/L (98-107); EST Glomerular Filtration Rate 63 mL/min (>60); Est Glom Filt Rate - Afr Amer 77 mL/min (>60); Estimated Creatinine Clearance 67.48 ml/min; Glucose 115 mg/dL (74-106); Potassium 4.2 mmol/L (3.5-5.1); Sodium Level 139 mmol/L (136-145)
== END 2021-10-09 16:48 | disposition home or self-care (01) ==
PROVIDERS: Physician Assistant; Emergency Provider Emergency Medicine; PCP Family Medicine; Visit Provider Emergency Medicine
DX: K62.5 Hemorrhage of anus and rectum (principal); K57.30 Diverticulosis of large intestine without perforation or abscess without bleeding; K44.9 Diaphragmatic hernia without obstruction or gangrene; Z79.01 Long term (current) use of anticoagulants
CPT/HCPCS: 80048; 82274; 85025; 99282; A4216

== ENCOUNTER → 2021-12-23 | Outpatient (CLI) | payer MEDICARE, SELFPAY ==
[2021-12-23 10:11] LABS: Absolute Lymphocyte Count 1.14 X10^3/uL (0.83-4.51); Absolute Neutrophil Count 2.7 X10^3/uL (2.0-7.7); Basophil# 0.04 X10^3/uL; Basophil% 0.9 % (0-1); Eosinophil# 0.17 X10^3/uL; Eosinophils% 3.7 % (0-5); Hematocrit 46.6 % (40-54); Hemoglobin 15.1 g/dL (13.0-16.5); Lymphocyte # 1.14 X10^3/ul (0.83-4.51); Lymphocyte % 25.1 % (19-41); Mean Corp Hgb Conc 32.4 g/dL (32-36); Mean Corpuscular Hgb 28.1 pg (27.0-32.0); Mean Corpuscular Volume 86.6 fL (80-94); Mean Platelet Vol. 10.6 fl (6.2-12.0); Monocyte# 0.48 X10^3/uL; Monocyte% 10.5 % (0-10); NRBC Flagged by Analyzer 0 % (0-5); Neutrophil # 2.69 X10^3/uL (2.7-7.7); Neutrophil % 59.1 % (47-70); Platelet Count 152 K/mm3 (150-450); RBC Distribution Width CV 13.5 % (11.6-14.6); RBC Distribution Width SD 42.4 fl (35.1-43.9); Red Blood Count 5.38 M/mm3 (4.6-6.2); White Blood Count 4.6 K/mm3 (4.4-11.0)
[2021-12-23 10:34] LABS: Hemoglobin A1c 6.2 % (3.8-5.6)
[2021-12-23 10:40] LABS: Anion Gap 3 (5-15); BUN 15 mg/dL (7-18); BUN/Creat Ratio 11.7 RATIO (10-20); Calcium,Total 9.1 mg/dL (8.5-10.1); Chloride 107 mmol/L (98-107); Creatinine, Serum 1.28 mg/dL (0.70-1.30); EST Glomerular Filtration Rate 59 mL/min (>60); Est Glom Filt Rate - Afr Amer 71 mL/min (>60); Glucose 131 mg/dL (74-106); Iron 66 ug/dL (65-175); Iron Binding Capacity,Total 362 ug/dL (250-450); PERCENT IRON SATURATION 18.2 % (15.0-55.0); Potassium 4.5 mmol/L (3.5-5.1); Sodium Level 138 mmol/L (136-145)
== END | disposition home or self-care (01) ==
LOC: MFPLAB 09:10
PROVIDERS: PCP Family Medicine; Visit Provider Family Medicine
DX: D64.9 Anemia, unspecified (principal); R73.9 Hyperglycemia, unspecified
CPT/HCPCS: 36415; 80048; 83036; 83540; 83550; 85025

== ENCOUNTER → 2023-01-07 | Outpatient (CLI) | payer MEDICARE, SELFPAY ==
[2023-01-07 12:42] LABS: Anion Gap 4 (5-15); BUN 17 mg/dL (7-18); BUN/Creat Ratio 14.5 RATIO (10-20); Calcium,Total 9.5 mg/dL (8.5-10.1); Chloride 106 mmol/L (98-107); Cholesterol 118 mg/dL (200); Creatinine, Serum 1.17 mg/dL (0.70-1.30); EST Glomerular Filtration Rate 65 mL/min (>60); Est Glom Filt Rate - Afr Amer 79 mL/min (>60); Glucose 151 mg/dL (74-106); High Density Lipoprotein 32 mg/dL; PSA,Total- Diagnostic 1.44 ng/mL (0.0-4.0); Potassium 3.7 mmol/L (3.5-5.1); Sodium Level 139 mmol/L (136-145); Triglycerides 284 mg/dL; Very Low Density Lipoprotein 57 mg/dL (5-40)
== END | disposition home or self-care (01) ==
LOC: MTLAB 10:07
PROVIDERS: PCP Family Medicine; Visit Provider Family Medicine
DX: R73.01 Impaired fasting glucose (principal); N40.0 Benign prostatic hyperplasia without lower urinary tract symptoms; Z13.220 Encounter for screening for lipoid disorders; E78.2 Mixed hyperlipidemia
CPT/HCPCS: 36415; 80048; 80061; 84153

== ENCOUNTER 2023-01-23 19:59 | Emergency (ER) | payer MEDICARE, SELFPAY ==
[2023-01-23 20:01] VITALS: BP 169/98; PULSE 81; RESP 18; TEMP 36.9; O2SAT 99; BMI 25.0
[2023-01-23 20:26] LABS: Bacteria 0 SEEN /hpf (None Seen); Mucous, Urine 0 SEEN /hpf (<or=2+); Squamous Epithelial Cells - UA 0 SEEN /hpf (0-5); White Blood Cells 0 SEEN /hpf (0-5)
[2023-01-23 20:27] LABS: Color, Urine Yellow (Yellow); Glucose, Dipstick Normal (Normal); Ketone-Dipstick 5 mg/dl (Negative); Leukocyte Esterase-Dipstick 25 /ul (Negative); Nitrite-Dipstick Negative (Negative); Occult Blood-Urine 250 /ul (Negative); Protein-Dipstick 30 mg/dl (Negative); Urine Bilirubin Dipstick Negative (Negative); Urine Clarity Cloudy (Clear); Urine Urobilinogen Normal (Normal); Urine pH 6.5 (5.0 - 8.0)
[2023-01-23 20:41] LABS: Red Blood Cells-Urine > 100 SEEN /hpf (0-5)
--- NOTE | 2023-01-23 21:04 | CT_ITS ---
STUDY: CT ABDOMEN AND PELVIS WITHOUT CONTRAST REASON FOR EXAM: Male, 72 years old. Right flank pain RADIATION DOSAGE (If Supplied By Facility): CTDIvol = ( 8.71 ) mGy, DLP = ( 531.14 ) mGycm TECHNIQUE: Transaxial images were obtained from the dome of the diaphragm to the symphysis pubis without oral contrast, and without intravenous contrast. Sagittal and coronal images were reconstructed. Individualized dose optimization techniques were used for this CT. COMPARISON: None. FINDINGS: The visualized lung bases are unremarkable. The visualized portions of the heart are within normal limits. Normal liver. Cholelithiasis. No significant dilatation of the extrahepatic biliary system. Normal spleen. Normal pancreas. Normal bilateral adrenal glands. Punctate stones in the right kidney. Mild right hydronephrosis with a stable 3 mm right ureteral stone. Punctate stone and cysts in the left kidney. Normal visualized stomach. Normal small intestine. Diverticulosis of the colon. The appendix is visualized and appears normal. Normal abdominal aorta. Normal inferior vena cava. Normal retroperitoneum. Normal urinary bladder. Normal abdominal wall. Degenerative vertebral changes. CT/Abdomen/Pelvis without Cont IMPRESSION: Bilateral punctate renal calculi. Left renal cysts. Mild right hydronephrosis with a proximal right ureteral stone noted. Colonic diverticulosis. Cholelithiasis. Electronically Signed: Facundo Grubbs DO at 22:14 EDT Reading Location ID and State: [facility] / [place] Tel [phone], Service support ,
[2023-01-23] MEDS: 0.9% Normal Saline (1000mL) 1,000 ML 150 ML IV (21:28)
[2023-01-23] MEDS: Ondansetron 4 MG/2 ML Vial IV (21:29)
[2023-01-23] MEDS: Morphine 4 MG/ML Syringe IV (21:29)
[2023-01-23] MEDS: Ketorolac 15 MG/ML Vial IV (21:29)
[2023-01-23 21:45] LABS: Absolute Lymphocyte Count 1.24 X10^3/uL (0.83-4.51); Absolute Neutrophil Count 2.9 X10^3/uL (2.0-7.7); Basophil# 0.05 X10^3/uL; Eosinophil# 0.18 X10^3/uL; Eosinophils% 3.6 % (0-5); Hemoglobin 15.4 g/dL (13.0-16.5); Lymphocyte # 1.24 X10^3/ul (0.83-4.51); Lymphocyte % 24.6 % (19-41); Mean Corp Hgb Conc 33.5 g/dL (32-36); Mean Corpuscular Hgb 30.1 pg (27.0-32.0); Mean Platelet Vol. 10.8 fl (6.2-12.0); Monocyte% 13.9 % (0-10); NRBC Flagged by Analyzer 0 % (0-5); Neutrophil # 2.85 X10^3/uL (2.7-7.7); Neutrophil % 56.5 % (47-70); Platelet Count 181 K/mm3 (150-450); RBC Distribution Width CV 13.3 % (11.6-14.6); RBC Distribution Width SD 43.6 fl (35.1-43.9); Red Blood Count 5.11 M/mm3 (4.6-6.2)
[2023-01-23 22:00] LABS: Anion Gap 6 (5-15); BUN 16 mg/dL (7-18); Calcium,Total 9.3 mg/dL (8.5-10.1); Chloride 106 mmol/L (98-107); Creatinine, Serum 1.46 mg/dL (0.70-1.30); EST Glomerular Filtration Rate 50 mL/min (>60); Est Glom Filt Rate - Afr Amer 61 mL/min (>60); Estimated Creatinine Clearance 53.86 ml/min; Glucose 119 mg/dL (74-106); Potassium 3.7 mmol/L (3.5-5.1); Sodium Level 140 mmol/L (136-145)
--- NOTE | 2023-01-23 22:44 | EDS_ITS ---
HPI History of Present Illness Chief Complaint: Flank Pain Informant: patient Onset/Context/Timing Onset: Today Current Severity: Moderate Maximum Severity: Severe Narrative Narrative: Patient presents secondary to right flank pain. He started noticing hematuria earlier today and this evening has had increasing pain in the right flank. He does have history of 1 prior kidney stone in the . He is currently on Xarelto secondary to history of DVT and PEs. Patient denies any dysuria. No fever. [facility] Medical History (Updated 01/23/23 @ 23:[address] 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 Cough Dyspnea Fatigue Gastrointestinal hemorrhage Hematuria Hilar adenopathy Hyperglyceridemia Hypokalemia Impotence Left leg DVT Mediastinal adenopathy Mild concentric left ventricular hypertrophy (LVH) Peyronie's disease Pulmonary embolism Right ventricular dilation Rosacea Spleen enlarged Home Medications multivitamin with folic acid 400 mcg tablet 1 tab PO DAILY 02/10/16 [History Last Taken 09/08/21 08:30] acetaminophen 500 mg tablet 1,000 mg PO Q6H PRN Pain 09/08/21 [History Last Taken 09/07/21 22:00] rivaroxaban 20 mg tablet (Xarelto) 20 mg PO DAILY@1800 #0 tabs 09/11/21 [Rx Last Taken 09/07/21] sildenafil 100 mg tablet tab 10/09/21 [History Last Taken Unknown] pantoprazole 40 mg tablet,delayed release (Protonix) 40 mg PO QAM #90 tabs 10/28/21 [Rx Last Taken Unknown] hydrocodone-acetaminophen 5-325mg 5mg-325mg 1 tab PO Q6H PRN PRN Pain 3 days #12 TABLETS 01/23/23 [Rx Last Taken Unknown] ondansetron 4 mg disintegrating tablet 4 mg PO Q8H PRN PRN Nausea #10 tabs 01/23/23 [Rx Last Taken Unknown] tamsulosin 0.4 mg capsule (Flomax) 0.4 mg PO DAILY #7 caps 01/23/23 [Rx Last Taken Unknown] Allergy/AdvReac Type Severity Reaction Status Date / Time gemfibrozil [From Lopid] Allergy Severe Unknown Verified 01/23/23 20:02 niacin Allergy Severe Unknown Verified 01/23/23 20:02 [From Niaspan Extended-Release] rosuvastatin [From Crestor] AdvReac Nausea Verified 01/23/23 20:02 Family History Brother Heart disease A-fib Sister DVT (deep venous thrombosis) Surgical History History of back surgery History of colonoscopy (~05/2019) History of hernia repair History of left knee surgery History of right knee surgery History of shoulder surgery Social History household members: spouse Smoking Status: Never smoker Electronic Cigarette Use: not used second hand exposure: No alcohol intake: never substance use type: does not use caffeine: Yes what type of physical activity do you participate in: walking frequency: 3-4 times per week duration: 15-30 minutes/day seatbelt use: always ROS ROS ED Constitutional Constitutional ED: Denies chills or fever(s) Eyes Eyes: Denies change in vision or discharge from eye(s) ENT ENT ED: Denies discharge from eye(s), rhinorrhea or sore throat Cardiovascular Cardiovascular: Denies chest pain or palpitations Respiratory/Chest Respiratory/Chest: Denies cough or dyspnea Gastrointestinal Gastrointestinal: Reports abdominal pain and nausea; Denies diarrhea or vomiting Genitourinary Genitourinary ED: Reports hematuria; Denies difficulty urinating or dysuria Musculoskeletal Musculoskeletal: Reports back pain; Denies extremity pain Integumentary Denies Abrasions or rash Neurologic Neurologic: Denies headache(s) or weakness Allergic/Immunologic Allergic/Immunologic ED: Denies lip swelling or urticaria EXAM Physical Exam Const Vital Signs: 01/23/23 20:01 01/23/23 20:27 01/23/23 22:56 Temperature 98.4 F Temperature Source Temporal Pulse Rate 81 75 Respiratory Rate 18 18 Respiratory Effort Normal Respiratory Pattern Normal Blood Pressure 169/98 H 124/75 H Blood Pressure Mean 121 91 Pulse Ox 99 99 Oxygen Delivery Method Room Air 01/23/23 22:56 Temperature Temperature Source Pulse Rate 75 Respiratory Rate 18 Respiratory Effort Respiratory Pattern Blood Pressure 124/75 H Blood Pressure Mean Pulse Ox 99 Oxygen Delivery Method Positive well nourished and well developed General Appearance ED: well developed HEENT Reports normocephalic and head/scalp atraumatic Eyes PERRL and EOMs intact bilaterally Neck supple Chest Wall inspection of chest normal and palpation of chest normal Resp normal respiratory effort and clear to auscultation bilaterally Cardio regular rate and regular rhythm GI GI Narrative: Mild tenderness to palpation at the lateral aspect of the right abdomen at the iliac crest. Palpation: soft Extremity normal to inspection Neuro oriented x3 and no sensory deficits noted Sensorium / Orientation: alert Motor Exam: strength 5/5 throughout Psych mental status grossly normal Skin no rashes or lesions noted MDM MDM MDM Narrative Medical decision making narrative: Patient was given morphine, Toradol, and Zofran along with IV fluids. Labwork obtained to evaluate for leukocytosis, anemia, and electrolyte derangement. Urinalysis obtained to evaluate for infection/hematuria. CT flank obtained to evaluate for kidney stone. Differential diagnosis includes ureterolithiasis, bowel obstruction, UTI, pyelonephritis, appendicitis. Lab Data Attestation: I reviewed the patient's lab results. Labs: Laboratory Results - last 24 hr 01/23/23 01/23/23 20:15 20:35 WBC 5.0 RBC 5.11 Hgb 15.4 Hct 46.0 MCV 90.0 MCH 30.1 MCHC 33.5 RDW Std Deviation 43.6 RDW Coeff of Rahat 13.3 Plt Count 181 MPV 10.8 Immature Gran % (Auto) 0.400 Neut % (Auto) 56.5 Lymph % (Auto) 24.6 [place] % (Auto) 13.9 H Eos % (Auto) 3.6 Baso % (Auto) 1.0 Absolute Neuts (auto) 2.9 Absolute Lymphs (auto) 1.24 Nucleated RBC % 0 Sodium 140 Potassium 3.7 Chloride 106 Carbon Dioxide 28.0 Anion Gap 6 BUN 16 Creatinine 1.46 H Estim Creat Clear Calc 53.86 Est GFR (MDRD) Af Amer 61 Est GFR (MDRD) Non-Af 50 L BUN/Creatinine Ratio 11.0 Glucose 119 H Calcium 9.3 Urine Color Yellow Urine Clarity Cloudy Urine pH 6.5 Ur Specific [place] 1.020 Urine Protein 30 H Urine Glucose (UA) Normal Urine Ketones 5 H Urine Occult Blood 250 H Urine Nitrite Negative Urine Bilirubin Negative Urine Urobilinogen Normal Ur Leukocyte Esterase 25 H Urine RBC > 100 SEEN Urine WBC 0 SEEN Ur Squamous Epith Cells 0 SEEN Urine Bacteria 0 SEEN Urine Mucus 0 SEEN Radiography Diagnostic Testing: Clinical Impression(s) from Imaging Studies Abdomen/Pelvis CT 01/23/23 21:04 IMPRESSION: Bilateral punctate renal calculi. Left renal cysts. Mild right hydronephrosis with a proximal right ureteral stone noted. Colonic diverticulosis. Cholelithiasis. Electronically Signed: Facundo Grubbs DO at 22:14 EDT Reading Location ID and State: [facility] / MD Tel [phone], Service support , Treatment and Re-Evaluation :: Repeat evaluation patient resting comfortably. CBC was a white count of 5 with a hemoglobin of 15.4. Normal differential. Chemistry studies reveal a BUN of 16 and a creatinine 1.46. This is slightly bumped when compared to labs earlier this month. Urinalysis reveals greater than 100 red cells with no sign of infection. CT of the flank reveals a 3 mm right ureteral stone. Mild right hydronephrosis is noted. With patient's pain well controlled at this time, he is given prescriptions for [place], Zofran, Flomax. He is referred to Dr. Angel for follow-up. Discharge Plan Triage Chief Complaint: Flank Pain ED Provider: Nida Corea Dx/Rx/DC Orders Clinical Impression: Ureterolithiasis Instructions: ED Kidney Stone w/ Colic Prescriptions: New hydrocodone-acetaminophen 5-325 mg tablet 1 tab PO Q6H PRN PRN (Reason: Pain) 3 Days Qty: 12 0RF ondansetron 4 mg tablet,disintegrating 4 mg PO Q8H PRN PRN (Reason: Nausea) Qty: 10 0RF tamsulosin [Flomax] 0.4 mg capsule 0.4 mg PO DAILY Qty: 7 0RF No Action pantoprazole [Protonix] 40 mg tablet,delayed release (DR/EC) 40 mg PO QAM Qty: 90 3RF multivitamin with folic acid 1 TABLET tablet 1 tab PO DAILY Patient Comments: Supplement acetaminophen 500 mg Tablet 1,000 mg PO Q6H PRN (Reason: Pain) Xarelto 20 mg tablet 20 mg PO DAILY@1800 Qty: 0 0RF Rx Instructions: Patient to hold rivaroxaban for 7 days sildenafil 100 mg tablet Patient Comments: TAKE 1 TABLET BY MOUTH EVERY DAY Primary Care Provider: Ellis Gonzalez Referrals: Franklyn Angel MD [Med Staff - Active Staff] - 5-7 Days Ellis Gonzalez MD [Primary Care Provider] - Disposition Disposition: Home, Self Care Discharge Date/Time: 01/23/23 22:58
[2023-01-23 22:56] VITALS: BP 124/75; PULSE 75; RESP 18; O2SAT 99
== END 2023-01-23 22:58 | disposition home or self-care (01) ==
PROVIDERS: Emergency Provider Emergency Medicine; PCP Family Medicine; Visit Provider Emergency Medicine
DX: N13.2 Hydronephrosis with renal and ureteral calculous obstruction (principal); Z86.718 Personal history of other venous thrombosis and embolism; Z79.01 Long term (current) use of anticoagulants
CPT/HCPCS: 74176; 80048; 81001; 85025; 96361; 96374; 96375; 99284; J7030; A4216; J2405

== ENCOUNTER 2023-01-25 15:26 | Inpatient (IN) | payer MEDICARE, OTHER, SELFPAY ==
[2023-01-25 15:35] VITALS: BP 134/85; PULSE 84; RESP 17; TEMP 36.4; O2SAT 97; BMI 25.0
[2023-01-25 16:35] LABS: Mucous, Urine 0 SEEN /hpf (<or=2+)
[2023-01-25 16:39] LABS: Color, Urine Yellow (Yellow); Glucose, Dipstick Normal (Normal); Ketone-Dipstick 15 mg/dl (Negative); Leukocyte Esterase-Dipstick 25 /ul (Negative); Nitrite-Dipstick Negative (Negative); Occult Blood-Urine 250 /ul (Negative); Protein-Dipstick 30 mg/dl (Negative); Urine Bilirubin Dipstick Negative (Negative); Urine Clarity Cloudy (Clear); Urine Urobilinogen Normal (Normal)
[2023-01-25 16:48] LABS: Absolute Lymphocyte Count 0.53 X10^3/uL (0.83-4.51); Absolute Neutrophil Count 7.5 X10^3/uL (2.0-7.7); Basophil# 0.02 X10^3/uL; Basophil% 0.2 % (0-1); Eosinophil# 0.03 X10^3/uL; Eosinophils% 0.3 % (0-5); Hematocrit 43.4 % (40-54); Lymphocyte # 0.53 X10^3/ul (0.83-4.51); Mean Corp Hgb Conc 34.6 g/dL (32-36); Mean Corpuscular Hgb 30.4 pg (27.0-32.0); Mean Corpuscular Volume 87.9 fL (80-94); Mean Platelet Vol. 10.5 fl (6.2-12.0); Monocyte# 0.81 X10^3/uL; Monocyte% 9.1 % (0-10); NRBC Flagged by Analyzer 0 % (0-5); Neutrophil # 7.45 X10^3/uL (2.7-7.7); Neutrophil % 84.1 % (47-70); POSITIVE DIFFERENTIAL YES; Platelet Count 138 K/mm3 (150-450); RBC Distribution Width CV 13.1 % (11.6-14.6); RBC Distribution Width SD 42.2 fl (35.1-43.9); Red Blood Count 4.94 M/mm3 (4.6-6.2); White Blood Count 8.9 K/mm3 (4.4-11.0)
[2023-01-25 16:51] LABS: Amorphous Sediment 1+ PHOS; Bacteria RARE /hpf (None Seen); Red Blood Cells-Urine > 100 SEEN /hpf (0-5); Squamous Epithelial Cells - UA 0-5 SEEN /hpf (0-5); White Blood Cells 0-5 SEEN /hpf (0-5)
[2023-01-25 16:58] LABS: Differential Indicated SCAN CRITERIA MET
[2023-01-25 17:20] LABS: Anion Gap 10 (5-15); BUN 24 mg/dL (7-18); Calcium,Total 8.8 mg/dL (8.5-10.1); Chloride 104 mmol/L (98-107); Creatinine, Serum 2.19 mg/dL (0.70-1.30); EST Glomerular Filtration Rate 32 mL/min (>60); Est Glom Filt Rate - Afr Amer 38 mL/min (>60); Glucose 183 mg/dL (74-106); Potassium 3.9 mmol/L (3.5-5.1); Sodium Level 134 mmol/L (136-145)
[2023-01-25 17:22] LABS: Differential Comment SCANNED
--- NOTE | 2023-01-25 17:22 | CT_ITS ---
INDICATION: Pain EXAMINATION: CT ABDOMEN AND PELVIS WITHOUT CONTRAST - CT Abdomen And Pelvis W/O Contrast Injection TECHNIQUE: Helically acquired images were obtained of the abdomen and pelvis without oral or IV contrast. A radiation dose optimization technique was used for this scan. IV Contrast dosage and agent: None. Oral contrast: None. RADIATION DOSAGE (If Supplied By Facility): CTDIvol = ( 9.54 ) mGy, DLP = ( 562.67 ) mGycm COMPARISON: Prior study dated: 01/23/2023 FINDINGS: LOWER CHEST: Bibasilar atelectasis. No cardiomegaly or pericardial effusion. LIVER: The liver is normal in size and shape with decreased attenuation. No focal mass. GALLBLADDER AND BILIARY TREE: Small stone seen in the region of the gallbladder neck. No gallbladder wall thickening or acute inflammation. No intra- or extrahepatic biliary ductal dilation. PANCREAS: No focal cystic or solid mass. SPLEEN: Normal size without focal cystic or solid mass. ADRENAL GLANDS: No nodules. KIDNEYS AND URETERS: Normal renal size and position. Asymmetric right-sided perinephric stranding. Mild right hydroureteronephrosis. There is a mid ureteral 0.3 cm calculus at the level of the L3 vertebral body. The ureter is decompressed distal to this. This stone has mildly progressed since the prior study. PERITONEUM: No ascites or free air. No other fluid collection. BOWEL: The stomach is unremarkable. Normal caliber small bowel. No obstruction. There is colonic diverticulosis without evidence of diverticulitis. No colonic wall thickening or inflammatory changes. No evidence of acute appendicitis. LYMPH NODES: No enlarged mesenteric or retroperitoneal lymph nodes. VESSELS: Aorta is non-dilated. Mild atherosclerotic calcifications. URINARY BLADDER: Unremarkable. REPRODUCTIVE ORGANS: No pelvic masses. Calcifications in the prostate which is mildly prominent. ABDOMINAL WALL: Small fat-containing right inguinal hernia. BONES: No acute or suspicious osseous abnormality. Degenerative change throughout the spine. Mild degenerative changes in both hips. CT/Abdomen/Pelvis without Cont IMPRESSION: Mild right hydroureteronephrosis with a mid ureteral calculus noted. This has mildly progressed in positioning when compared to prior. Cholelithiasis without evidence for cholecystitis. Hepatic steatosis. Electronically Signed: Pavan Hopkins MD at 18:13 EDT ,
[2023-01-25] MEDS: Morphine 4 MG/ML Syringe IV (17:32)
[2023-01-25] MEDS: Ondansetron 4 MG/2 ML Vial IV (17:32)
[2023-01-25] MEDS: 0.9% Normal Saline (1000mL) 1,000 ML 1000 ML IV (17:33)
[2023-01-25 17:37] VITALS: TEMP 38.1
--- NOTE | 2023-01-25 17:48 | EX.ED.DYSGE1 ---
HPI <KIERAN Powell - Last Filed: 01/25/23 19:14> History of Present Illness Chief Complaint: Flank Pain Narrative Narrative: Patient is a 72-year-old male with history of DVT, left leg on Xarelto, history of pulmonary embolism, prostate surgery GERD, who presents to the emerged department with pain to the right flank, chills. Patient was seen here on 01/23/2023, this was 2 days ago, he was diagnosed with a 3 mm kidney stone to the right flank area. Patient was given pain medicine and will follow-up outpatient. Patient states today, the pain became much more severe, he was shaking could not get warm. He is here for evaluation. He also complains of nausea and vomiting. PFSH <KIERAN Pwoell - Last Filed: 01/25/23 19:14> [facility] Medical History (Updated 01/25/23 @ 18:[address] 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 Cough Dyspnea Fatigue Gastrointestinal hemorrhage Hematuria Hilar adenopathy Hyperglyceridemia Hypokalemia Impotence Left leg DVT Mediastinal adenopathy Mild concentric left ventricular hypertrophy (LVH) Peyronie's disease Pulmonary embolism Right ventricular dilation Rosacea Spleen enlarged Home Medications multivitamin with folic acid 400 mcg tablet 1 tab PO DAILY 02/10/16 [History Last Taken 09/08/21 08:30] acetaminophen 500 mg tablet 1,000 mg PO Q6H PRN Pain 09/08/21 [History Last Taken 09/07/21 22:00] rivaroxaban 20 mg tablet (Xarelto) 20 mg PO DAILY@1800 #0 tabs 09/11/21 [Rx Last Taken 09/07/21] sildenafil 100 mg tablet tab 10/09/21 [History Last Taken Unknown] pantoprazole 40 mg tablet,delayed release (Protonix) 40 mg PO QAM #90 tabs 10/28/21 [Rx Last Taken Unknown] hydrocodone-acetaminophen 5-325mg 5mg-325mg 1 tab PO Q6H PRN PRN Pain 3 days #12 TABLETS 01/23/23 [Rx Last Taken Unknown] ondansetron 4 mg disintegrating tablet 4 mg PO Q8H PRN PRN Nausea #10 tabs 01/23/23 [Rx Last Taken Unknown] tamsulosin 0.4 mg capsule (Flomax) 0.4 mg PO DAILY #7 caps 01/23/23 [Rx Last Taken Unknown] Allergy/AdvReac Type Severity Reaction Status Date / Time gemfibrozil [From Lopid] Allergy Severe Unknown Verified 01/25/23 15:27 niacin Allergy Severe Unknown Verified 01/25/23 15:27 [From Niaspan Extended-Release] acetaminophen [From Vicodin] AdvReac Other Verified 01/25/23 15:27 hydrocodone [From Vicodin] AdvReac Other Verified 01/25/23 15:27 rosuvastatin [From Crestor] AdvReac Nausea Verified 01/25/23 15:27 Family History Brother Heart disease A-fib Sister DVT (deep venous thrombosis) Surgical History History of back surgery History of colonoscopy (~05/2019) History of hernia repair History of left knee surgery History of right knee surgery History of shoulder surgery Social History household members: spouse Smoking Status: Never smoker Electronic Cigarette Use: not used second hand exposure: No alcohol intake: never substance use type: does not use caffeine: Yes what type of physical activity do you participate in: walking frequency: 3-4 times per week duration: 15-30 minutes/day seatbelt use: always ROS <KIERAN Powell - Last Filed: 01/25/23 19:14> ROS ED ROS Narrative Constitutional: Negative for weight loss, weakness. Positive fever and chills Eyes: Negative for vision loss, vision change, double vision ENT: Negative for any sore throat, ear pain, congestion Cardiovascular: Negative for any chest pain, tightness, palpitations Respiratory: Negative for any cough, sputum production, hemoptysis, dyspnea, dyspnea on exertion, orthopnea Gastrointestinal: Negative for any vomiting, diarrhea, constipation, blood in stool, blood in vomit. Positive for right flank pain, right lower abdominal pain, nausea : Negative for any urinary frequency, dysuria, retention, blood in urine Muscle skeletal: Negative for any muscle joint pain, stiffness, myalgias, arthralgias, neck pain, back pain Neurological: Negative for any headache, syncope, numbness or tingling, dizziness Skin: Negative for any rashes, lumps, itching, abrasions, lacerations Psychiatric: Negative for any depression, anxiety, stress, suicidal ideation, homicidal ideation Hematologic: Negative for any easy bruising, excessive bruising, easy bleeding Allergies: Negative for any eczema, hives, rash EXAM <KIERAN Powell - Last Filed: 01/25/23 19:14> Physical Exam Narrative Exam Narrative: vital signs reviewed. Patient did have a elevated temp of 100.6. Patient did show some rigors. HEET: Head normocephalic atraumatic, TMs clear bilaterally. Posterior pharynx is clear, moist mucous membranes. Nares clear bilaterally. Neck: Supple with no lymphadenopathy or tenderness. No signs of meningismus, negative jolt sign. Cardiac: Regular rate and rhythm no murmurs gallops or rubs, equal peripheral pulses bilaterally. Respiratory: Lungs clear to auscultation bilaterally. No chest tenderness. Abdomen: Soft, nontender, nondistended. No abdominal bruit or pulsatile masses. No hepatosplenomegaly Extremities: No peripheral edema, no signs of gross trauma or deformity. Active full range of motion of all extremities. Neuro: Cranial nerves II through XII intact, no focal neurological deficits. Skin: Clean dry and intact with no rash, purpura, petechiae, vesicles or pustules. Backs/flank: Positive right-sided CVA tenderness, no midline spinal tenderness, no deformity. Psych: Normal mood and affect. No SI, HI or acute psychosis. Const Vital Signs: 01/25/23 15:35 01/25/23 17:37 Temperature 97.5 F L 100.6 F H Temperature Source Temporal Oral Pulse Rate 84 Respiratory Rate 17 Blood Pressure 134/85 H Blood Pressure Mean 101 Pulse Ox 97 Oxygen Delivery Method Room Air Positive well nourished and well developed General Appearance ED: well developed <Dr. Rolf Estes MD - Last Filed: 01/25/23 18:34> Physical Exam Const Vital Signs: 01/25/23 15:35 01/25/23 17:37 Temperature 97.5 F L 100.6 F H Temperature Source Temporal Oral Pulse Rate 84 Respiratory Rate 17 Blood Pressure 134/85 H Blood Pressure Mean 101 Pulse Ox 97 Oxygen Delivery Method Room Air MDM <Ellis Castillo KIERAN - Last Filed: 01/25/23 19:14> [facility] Lab Data Labs: Laboratory Results - last 24 hr 01/25/23 01/25/23 01/25/23 16:30 16:40 17:35 WBC 8.9 RBC 4.94 Hgb 15.0 Hct 43.4 MCV 87.9 MCH 30.4 MCHC 34.6 RDW Std Deviation 42.2 RDW Coeff of Rahat 13.1 Plt Count 138 L MPV 10.5 Immature Gran % (Auto) 0.300 Neut % (Auto) 84.1 H Lymph % (Auto) 6.0 L [place] % (Auto) 9.1 Eos % (Auto) 0.3 Baso % (Auto) 0.2 Absolute Neuts (auto) 7.5 Absolute Lymphs (auto) 0.53 L Nucleated RBC % 0 Differential Comment SCANNED Sodium 134 L Potassium 3.9 Chloride 104 Carbon Dioxide 20.0 L Anion Gap 10 BUN 24 H Creatinine 2.19 H Estim Creat Clear Calc 35.90 Est GFR (MDRD) Af Amer 38 L Est GFR (MDRD) Non-Af 32 L BUN/Creatinine Ratio 11.0 Glucose 183 H Lactic Acid 1.6 Calcium 8.8 Urine Color Yellow Urine Clarity Cloudy Urine pH 8.0 Ur Specific [place] 1.010 Urine Protein 30 H Urine Glucose (UA) Normal Urine Ketones 15 H Urine Occult Blood 250 H Urine Nitrite Negative Urine Bilirubin Negative Urine Urobilinogen Normal Ur Leukocyte Esterase 25 H Urine RBC > 100 SEEN Urine WBC 0-5 SEEN Ur Squamous Epith Cells 0-5 SEEN Amorphous Sediment 1+ PHOS Urine Bacteria RARE Urine Mucus 0 SEEN Radiography Diagnostic Testing: Clinical Impression(s) from Imaging Studies Abdomen/Pelvis CT 01/25/23 17:22 IMPRESSION: Mild right hydroureteronephrosis with a mid ureteral calculus noted. This has mildly progressed in positioning when compared to prior. Cholelithiasis without evidence for cholecystitis. Hepatic steatosis. Electronically Signed: Pavan Hopkins MD at 18:13 EDT Reading Location ID and State: [facility] / [place] Tel , Service support , Treatment and Re-Evaluation :: Patient is in no respiratory distress, patient does look uncomfortable with right flank pain. Patient vital signs do show the patient is febrile. Secondary the patient's history of right-sided renal calculus, fever, chills, rigors, patient received a septic work-up with 2 sets of blood cultures, urine culture, lactic acid.Patient's CBC was unremarkable. Patient's chemistries were unremarkable, patient's creatinine was 2.19, this is elevated from 2 days ago at 1.45. This is concerning, patient be given 1 L of normal saline, Zofran, morphine. Patient will receive a CT scan of the abdomen pelvis without contrast concerning for obstructing stone. Patient was given IV antibiotics. CT scan of the abdomen pelvis without contrast showed a mild right hydronephrosis with a mild ureteral calculus noted. This is mildly progressed in positioning when compared to prior. Cholelithiasis without evidence of any cholecystitis. We did speak with Dr. Angel. Patient will be admitted to medicine. I spoke with Dr. Siegel, he will be admitted. I spoke with the patient, he is agreeable. Patient was redosed on IV pain medicine. Patient stable for admission. <Dr. Rolf Estes MD - Last Filed: 01/25/23 18:34> [facility] MDM Narrative Medical decision making narrative: I have personally performed a face to face assessment of the patient and have reviewed the ARSLAN Note. I performed a substantive portion of the visit including all aspects of the following. My cabrera findings include: History is 72-year-old male history of 3 mm right ureteral stone diagnosed about 3 days ago. Patient is having increasing right flank pain with chills at home. Exam is [69-year-old male vital signs stable his temperature is 1.6. He does not look septic or toxic. HEENT exam unremarkable. Neck nontender. Lungs are clear. Heart regular rhythm rate about 85 no murmur. Chest were nontender. Abdomen soft nontender. He complains of right flank pain is not reproducible. Moves all 4 extremities. Neurovascular intact. He is awake and alert. No focal motor deficits.] Medical Decision Making [72-year-old with right flank pain with a known 3 mm stone rule out urinary tract infection. Patient treated with IV morphine and Zofran. Rocephin for possible urinary tract infection. Repeat labs and CAT scan.] Other additions or changes: [None] History & Record Review Discussion w/independent historian: Patient and Family Additional record(s) reviewed:: Prior inpatient record, Prior outpatient record, Prior ED visit and Prior labs Lab Data Attestation: I reviewed the patient's lab results. Lab results narrative: CBC unremarkable. White count 8 H&H 15.3. Platelets slightly low 138,000. Electrolytes show sodium 134. Gap of 10. BUN and creatinine 24 and 2.19 creatinine is significantly increased from his last creatinine which is around 1.4. Lactic acid normal at 1.6. Urinalysis shows greater than 100 red cells but no white cells only rare bacteria no nitrates. No signs of infection. Labs: Laboratory Results - last 24 hr 01/25/23 01/25/23 01/25/23 16:30 16:40 17:35 WBC 8.9 RBC 4.94 Hgb 15.0 Hct 43.4 MCV 87.9 MCH 30.4 MCHC 34.6 RDW Std Deviation 42.2 RDW Coeff of Rahat 13.1 Plt Count 138 L MPV 10.5 Immature Gran % (Auto) 0.300 Neut % (Auto) 84.1 H Lymph % (Auto) 6.0 L [place] % (Auto) 9.1 Eos % (Auto) 0.3 Baso % (Auto) 0.2 Absolute Neuts (auto) 7.5 Absolute Lymphs (auto) 0.53 L Nucleated RBC % 0 Differential Comment SCANNED Sodium 134 L Potassium 3.9 Chloride 104 Carbon Dioxide 20.0 L Anion Gap 10 BUN 24 H Creatinine 2.19 H Estim Creat Clear Calc 35.90 Est GFR (MDRD) Af Amer 38 L Est GFR (MDRD) Non-Af 32 L BUN/Creatinine Ratio 11.0 Glucose 183 H Lactic Acid 1.6 Calcium 8.8 Urine Color Yellow Urine Clarity Cloudy Urine pH 8.0 Ur Specific [place] 1.010 Urine Protein 30 H Urine Glucose (UA) Normal Urine Ketones 15 H Urine Occult Blood 250 H Urine Nitrite Negative Urine Bilirubin Negative Urine Urobilinogen Normal Ur Leukocyte Esterase 25 H Urine RBC > 100 SEEN Urine WBC 0-5 SEEN Ur Squamous Epith Cells 0-5 SEEN Amorphous Sediment 1+ PHOS Urine Bacteria RARE Urine Mucus 0 SEEN Radiography Diagnostic Testing: Clinical Impression(s) from Imaging Studies Abdomen/Pelvis CT 01/25/23 17:22 IMPRESSION: Mild right hydroureteronephrosis with a mid ureteral calculus noted. This has mildly progressed in positioning when compared to prior. Cholelithiasis without evidence for cholecystitis. Hepatic steatosis. Electronically Signed: Pavan Hopkins MD at 18:13 EDT , Discharge Plan Dx/Rx/DC Orders Clinical Impression: Acute kidney injury, Intractable pain, Chills, Kidney stone on right side Disposition Disposition: Acute Care Hospital [facility]
[2023-01-25] MEDS: Ceftriaxone 1 GM/50 ML BAG IV (17:56)
[2023-01-25 18:27] LABS: Lactic Acid 1.6 mmol/L (0.4-1.9)
[2023-01-25] MEDS: morphine 8 MG/ML Syringe 6 MG IV (18:38)
--- NOTE | 2023-01-25 19:28 | ED.RN ---
[facility] CONTACT[facility] ADMITTED, CHART FAXED [phone].
--- NOTE | 2023-01-25 19:34 | HP.PCM_ITS ---
HPI - General General Date of Admission: 01/25/23 Date of Service: 01/25/23 Chief Complaint: Right flank pain HPI Narrative RUI DUFFY, is a 72 M who presents to the emergency room with chief complaint of acute right flank pain. Patient was previously seen in diagnosed with kidney stone in the right ureter a 3 mm stone diagnosed and was sent home several days ago to pass as an outpatient ,however, today the pain has recurred and is more severe. Onset of this severity was this afternoon at approximately 4:00 associated with nausea and vomiting and a shaking. Patient currently rates his pain a 3/10 after receiving several doses of morphine in the emergency room and states he has not had a bowel movement in the last 2 days which is abnormal for him since starting narcotics for this kidney stone. Current CT scan shows a 3 mm stone in the mid ureter with hydronephrosis and urologist Dr. Angel was consulted by the emergency room physician for evaluation and patient will be seen by him tomorrow for possible surgical intervention. He will be admitted overnight for pain control and IV fluids and surgical consult evaluation in the morning. [facility] Medical History (Updated 01/25/23 @ 18:[address] 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 Cough Dyspnea Fatigue Gastrointestinal hemorrhage Hematuria Hilar adenopathy Hyperglyceridemia Hypokalemia Impotence Left leg DVT Mediastinal adenopathy Mild concentric left ventricular hypertrophy (LVH) Peyronie's disease Pulmonary embolism Right ventricular dilation Rosacea Spleen enlarged Home Medications multivitamin with folic acid 400 mcg tablet 1 tab PO DAILY 02/10/16 [History Last Taken 09/08/21 08:30] acetaminophen 500 mg tablet 1,000 mg PO Q6H PRN Pain 09/08/21 [History Last Taken 09/07/21 22:00] rivaroxaban 20 mg tablet (Xarelto) 20 mg PO DAILY@1800 #0 tabs 09/11/21 [Rx Last Taken 09/07/21] sildenafil 100 mg tablet tab 10/09/21 [History Last Taken Unknown] pantoprazole 40 mg tablet,delayed release (Protonix) 40 mg PO QAM #90 tabs 10/28/21 [Rx Last Taken Unknown] hydrocodone-acetaminophen 5-325mg 5mg-325mg 1 tab PO Q6H PRN PRN Pain 3 days #12 TABLETS 01/23/23 [Rx Last Taken Unknown] ondansetron 4 mg disintegrating tablet 4 mg PO Q8H PRN PRN Nausea #10 tabs 01/23/23 [Rx Last Taken Unknown] tamsulosin 0.4 mg capsule (Flomax) 0.4 mg PO DAILY #7 caps 01/23/23 [Rx Last Taken Unknown] Allergy/AdvReac Type Severity Reaction Status Date / Time gemfibrozil [From Lopid] Allergy Severe Unknown Verified 01/25/23 15:27 niacin Allergy Severe Unknown Verified 01/25/23 15:27 [From Niaspan Extended-Release] acetaminophen [From Vicodin] AdvReac Other Verified 01/25/23 15:27 hydrocodone [From Vicodin] AdvReac Other Verified 01/25/23 15:27 rosuvastatin [From Crestor] AdvReac Nausea Verified 01/25/23 15:27 Family History Brother Heart disease A-fib Sister DVT (deep venous thrombosis) Surgical History History of back surgery History of colonoscopy (~05/2019) History of hernia repair History of left knee surgery History of right knee surgery History of shoulder surgery Social History household members: spouse Smoking Status: Never smoker Electronic Cigarette Use: not used second hand exposure: No alcohol intake: never substance use type: does not use caffeine: Yes what type of physical activity do you participate in: walking frequency: 3-4 times per week duration: 15-30 minutes/day seatbelt use: always ROS Constitutional Constitutional: Reports chills; Denies fever(s) Eyes Eyes: Denies change in vision ENT HEENT: Denies abnormal hearing Cardiovascular Cardiovascular: Denies chest pain Respiratory/Chest Respiratory/Chest: Denies cough or shortness of breath at rest Gastrointestinal Gastrointestinal: Reports abdominal pain Genitourinary Genitourinary: Denies dysuria Musculoskeletal Musculoskeletal: Reports back pain Integumentary Integumentary: Denies dry skin Neurologic Neurologic: Denies abnormal speech Psychiatric Psychiatric: Denies anxiety Endocrine Endocrinology: Denies change in body appearance Hematologic/Lymphatic Hematologic/Lymphatic: Denies anemia Vital Signs Vital Signs Vital Signs: 01/25/23 15:35 01/25/23 17:37 Temperature 97.5 F L 100.6 F H Temperature Source Temporal Oral Pulse Rate 84 Respiratory Rate 17 Blood Pressure 134/85 H Blood Pressure Mean 101 Pulse Ox 97 Oxygen Delivery Method Room Air Weight Weight: 200 lb Body Mass Index (BMI) 25.0 Physical Exam Const oriented x3 Constitutional Narrative: And pain General Appearance: cooperative HEENT normocephalic and head/scalp atraumatic Eyes PERRL and EOMs intact bilaterally Neck no lymphadenopathy Lymph Lymphatic: no lymphadenopathy noted Resp normal respiratory effort, normal air movement and clear to auscultation bilaterally Cardio regular rate, regular rhythm, S1 normal heart sound and S2 normal heart sound GI soft to palpation GI Narrative: Right CVA tenderness Palpation: tender Obturator sign Extremity normal capillary refill Skin General Skin Exam: no breakdown Neuro no focal motor deficits and no sensory deficits noted Psych thought process normal, cooperative and affect normal Results Lab / Micro Data 01/25/23 16:40 01/25/23 16:40 Labs: Laboratory Results - last 24 hr 01/25/23 16:30: Urine Color Yellow, Urine Clarity Cloudy, Urine pH 8.0, Ur Specific [place] 1.010, Urine Protein 30 H, Urine Glucose (UA) Normal, Urine Ketones 15 H, Urine Occult Blood 250 H, Urine Nitrite Negative, Urine Bilirubin Negative, Urine Urobilinogen Normal, Ur Leukocyte Esterase 25 H, Urine RBC > 100 SEEN, Urine WBC 0-5 SEEN, Ur Squamous Epith Cells 0-5 SEEN, Amorphous Sediment 1+ PHOS, Urine Bacteria RARE, Urine Mucus 0 SEEN 01/25/23 16:40: WBC 8.9, RBC 4.94, Hgb 15.0, Hct 43.4, MCV 87.9, MCH 30.4, MCHC 34.6, RDW Std Deviation 42.2, RDW Coeff of Rahat 13.1, Plt Count 138 L, MPV 10.5, Immature Gran % (Auto) 0.300, Neut % (Auto) 84.1 H, Lymph % (Auto) 6.0 L, [place] % (Auto) 9.1, Eos % (Auto) 0.3, Baso % (Auto) 0.2, Absolute Neuts (auto) 7.5, Absolute Lymphs (auto) 0.53 L, Nucleated RBC % 0, Differential Comment SCANNED, Sodium 134 L, Potassium 3.9, Chloride 104, Carbon Dioxide 20.0 L, Anion Gap 10, BUN 24 H, Creatinine 2.19 H, Estim Creat Clear Calc 35.90, Est GFR (MDRD) Af Amer 38 L, Est GFR (MDRD) Non-Af 32 L, BUN/Creatinine Ratio 11.0, Glucose 183 H, Calcium 8.8 01/25/23 17:35: Lactic Acid 1.6 Radiology Impression Abdomen/Pelvis CT 01/25/23 17:22 IMPRESSION: Mild right hydroureteronephrosis with a mid ureteral calculus noted. This has mildly progressed in positioning when compared to prior. Cholelithiasis without evidence for cholecystitis. Hepatic steatosis. Electronically Signed: Pavan Hopkins MD at 18:13 EDT Reading Location ID and State: [facility] / [place] Tel , Service support , Assessment & Plan Assessment/Plan (1) Kidney stone on right side: (2) Chills: (3) Intractable pain: PLAN: Plan 1 nephrolithiasis on right?admit patient to general medical floor, continue morphine for pain control and Zofran for nausea control. IV fluids normal saline at a rate of 125 cc per per hour overnight with repeat CBC and BMP in a.m. consult urology for surgical evaluation we will make patient n.p.o. at midnight. #2 DVT prophylaxis?due to increased creatinine we will use SCDs for now Charges/Coding Visit Charges Inpatient E&M: 48596 Init Hosp L2
[2023-01-25] MEDS: HYDROmorphone 0.5 MG/0.5 ML SYRINGE IV (19:47)
[2023-01-25 20:15] VITALS: BP 141/87; PULSE 77; RESP 16; TEMP 37.5; O2SAT 96
[2023-01-25 21:36] VITALS: BMI 25.2
[2023-01-25 21:51] VITALS: BP 132/80; PULSE 90; RESP 17; TEMP 38.3; O2SAT 95
[2023-01-25] MEDS: 0.9% Normal Saline (1000mL) 1,000 ML 125 ML IV (22:01)
[2023-01-25 22:44] VITALS: BP 155/85; PULSE 87; RESP 18; TEMP 37.3; O2SAT 94
[2023-01-26 01:12] VITALS: BP 179/78; PULSE 79; RESP 22; TEMP 36.5; O2SAT 98
[2023-01-26] MEDS: Morphine 4 MG/ML Syringe IV ×4 (01:15→17:43)
[2023-01-26 04:27] VITALS: BP 145/67; PULSE 78; RESP 18; TEMP 36.9; O2SAT 96
[2023-01-26] MEDS: 0.9% Normal Saline (1000mL) 1,000 ML 125 ML IV ×3 (05:57→23:04)
[2023-01-26 07:05] LABS: Absolute Lymphocyte Count 0.72 X10^3/uL (0.83-4.51); Absolute Neutrophil Count 6.6 X10^3/uL (2.0-7.7); Basophil# 0.02 X10^3/uL; Basophil% 0.2 % (0-1); Eosinophil# 0.05 X10^3/uL; Eosinophils% 0.6 % (0-5); Hematocrit 37.3 % (40-54); Hemoglobin 12.4 g/dL (13.0-16.5); Lymphocyte # 0.72 X10^3/ul (0.83-4.51); Lymphocyte % 8.7 % (19-41); Mean Corp Hgb Conc 33.2 g/dL (32-36); Mean Corpuscular Hgb 29.7 pg (27.0-32.0); Mean Corpuscular Volume 89.2 fL (80-94); Mean Platelet Vol. 11.1 fl (6.2-12.0); Monocyte# 0.88 X10^3/uL; Monocyte% 10.6 % (0-10); NRBC Flagged by Analyzer 0 % (0-5); Neutrophil # 6.62 X10^3/uL (2.7-7.7); Neutrophil % 79.5 % (47-70); Platelet Count 109 K/mm3 (150-450); RBC Distribution Width CV 13.2 % (11.6-14.6); Red Blood Count 4.18 M/mm3 (4.6-6.2); White Blood Count 8.3 K/mm3 (4.4-11.0)
[2023-01-26 07:18] LABS: International Normalized Ratio 1.3; Prothrombin Time (Protime)PT. 16.2 SECONDS (11.7-14.9)
[2023-01-26 07:25] LABS: Anion Gap 6 (5-15); BUN 22 mg/dL (7-18); BUN/Creat Ratio 9.9 RATIO (10-20); Calcium,Total 7.9 mg/dL (8.5-10.1); Chloride 107 mmol/L (98-107); Creatinine, Serum 2.22 mg/dL (0.70-1.30); EST Glomerular Filtration Rate 31 mL/min (>60); Est Glom Filt Rate - Afr Amer 38 mL/min (>60); Estimated Creatinine Clearance 35.42 ml/min; Glucose 137 mg/dL (74-106); Potassium 3.8 mmol/L (3.5-5.1); Sodium Level 135 mmol/L (136-145)
--- NOTE | 2023-01-26 07:40 | CON.PCM.UR_ITS ---
Assessment & Plan Assessment/Plan (1) Kidney stone on right side: PLAN: Strain all urine, n.p.o. at midnight and will plan for surgery tomorrow. HPI Consult Data Date of Consult: 01/26/23 HPI Narrative Reason for Consultation: Right ureteral calculi HPI Narrative: RUI DUFFY, is a 72 M who presents to the emergency room for the second time for a small stone in the mid right ureter, he had intractable pain elevated creatinine dehydration and chills so he was admitted for further management of his kidney stone. So is possible he could pass the stone is quite small but so far he has failed outpatient management. At this point with IV antibiotics and IV pain medicine the patient is pain-free and doing well. Strain all urine we will see if he can pass the stone put on the schedule for tomorrow for surgery if he is not able to pass a stone. 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 vein Cough Dyspnea Fatigue Gastrointestinal hemorrhage Hematuria Hilar adenopathy Hyperglyceridemia Hypokalemia Impotence Left leg DVT Mediastinal adenopathy Mild concentric left ventricular hypertrophy (LVH) Peyronie's disease Pulmonary embolism Right ventricular dilation Rosacea Spleen enlarged Home Medications multivitamin with folic acid 400 mcg tablet 1 tab PO DAILY multivitam 02/10/16 [History Last Taken 09/08/21 08:30] acetaminophen 500 mg tablet 1,000 mg PO Q6H PRN Pain 09/08/21 [History Last Taken 09/07/21 22:00] rivaroxaban 20 mg tablet (Xarelto) 20 mg PO DAILY@1800 see pcp #0 tabs 09/11/21 [Rx Last Taken 09/07/21] sildenafil 100 mg tablet tab 10/09/21 [History Last Taken Unknown] pantoprazole 40 mg tablet,delayed release (Protonix) 40 mg PO QAM stomach #90 tabs 10/28/21 [Rx Last Taken Unknown] hydrocodone-acetaminophen 5-325mg 5mg-325mg 1 tab PO Q6H PRN PRN Pain 3 days #12 TABLETS 01/23/23 [Rx Last Taken Unknown] ondansetron 4 mg disintegrating tablet 4 mg PO Q8H PRN PRN Nausea #10 tabs 01/23/23 [Rx Last Taken Unknown] tamsulosin 0.4 mg capsule (Flomax) 0.4 mg PO DAILY urinating #7 caps 01/23/23 [Rx Last Taken Unknown] Allergy/AdvReac Type Severity Reaction Status Date / Time gemfibrozil [From Lopid] Allergy Severe Unknown Verified 01/25/23 15:27 niacin Allergy Severe Unknown Verified 01/25/23 15:27 [From Niaspan Extended-Release] acetaminophen [From Vicodin] AdvReac Other Verified 01/25/23 15:27 hydrocodone [From Vicodin] AdvReac Other Verified 01/25/23 15:27 rosuvastatin [From Crestor] AdvReac Nausea Verified 01/25/23 15:27 Family History Brother Heart disease A-fib Sister DVT (deep venous thrombosis) Surgical History History of back surgery History of colonoscopy (~05/2019) History of hernia repair History of left knee surgery History of right knee surgery History of shoulder surgery Social History household members: spouse Smoking Status: Never smoker Electronic Cigarette Use: not used second hand exposure: No alcohol intake: never substance use type: does not use caffeine: Yes what type of physical activity do you participate in: walking frequency: 3-4 times per week duration: 15-30 minutes/day seatbelt use: always ROS Constitutional Constitutional: Denies chills, fever(s) or malaise Eyes Eyes: Denies blurry vision or change in vision ENT HEENT: Reports none Cardiovascular Cardiovascular: Denies chest pain or palpitations Respiratory/Chest Respiratory/Chest: Denies cough or shortness of breath with exertion Gastrointestinal Gastrointestinal: Denies abdominal pain, constipation or diarrhea Musculoskeletal Musculoskeletal: Denies back pain, joint stiffness or joint swelling Integumentary Integumentary: Denies dry skin, jaundice, lesions or rash Neurologic Neurologic: Denies confusion, syncope or weakness Psychiatric Psychiatric: Reports none; Denies anxiety or depression Endocrine Endocrinology: Denies excessive sweating, fatigue or flushing Hematologic/Lymphatic Hematologic/Lymphatic: Denies anemia, easy bleeding or easy bruising Physical Exam Const alert and oriented x3 General Appearance: cooperative HEENT normocephalic, head/scalp atraumatic, EAC's normal and TM's normal bilaterally Eyes PERRL and EOMs intact bilaterally Pupil: sluggish Neck no lymphadenopathy, supple and no JVD General: trachea midline Lymph Lymphatic: no lymphadenopathy noted, lymphedema and lymphadenopathy Resp normal respiratory effort, normal air movement and clear to auscultation bilaterally Cardio regular rate, regular rhythm and peripheral pulses 2+ throughout GI soft to palpation, non-tender and non-distended Extremity normal capillary refill and no clubbing, cyanosis or edema General Extremity: no tenderness to palpation of joints or extremities Skin no rashes or lesions noted General Skin Exam: turgor normal Lesions: no lesions Rashes: no rashes Neuro CN's II-XII intact bilaterally Speech: speech normal Motor Exam: strength 5/5 throughout; Negative for general weakness Psych thought process normal, cooperative and affect normal Appearance: appropriate Lab / Micro Data Attestation: I reviewed the patient's lab results. 01/26/23 05:50 01/26/23 05:50 Labs: Laboratory Results - last 24 hr 01/25/23 16:30: Urine Color Yellow, Urine Clarity Cloudy, Urine pH 8.0, Ur Specific [place] 1.010, Urine Protein 30 H, Urine Glucose (UA) Normal, Urine Ketones 15 H, Urine Occult Blood 250 H, Urine Nitrite Negative, Urine Bilirubin Negative, Urine Urobilinogen Normal, Ur Leukocyte Esterase 25 H, Urine RBC > 100 SEEN, Urine WBC 0-5 SEEN, Ur Squamous Epith Cells 0-5 SEEN, Amorphous Sediment 1+ PHOS, Urine Bacteria RARE, Urine Mucus 0 SEEN 01/25/23 16:40: WBC 8.9, RBC 4.94, Hgb 15.0, Hct 43.4, MCV 87.9, MCH 30.4, MCHC 34.6, RDW Std Deviation 42.2, RDW Coeff of Rahat 13.1, Plt Count 138 L, MPV 10.5, Immature Gran % (Auto) 0.300, Neut % (Auto) 84.1 H, Lymph % (Auto) 6.0 L, [place] % (Auto) 9.1, Eos % (Auto) 0.3, Baso % (Auto) 0.2, Absolute Neuts (auto) 7.5, Absolute Lymphs (auto) 0.53 L, Nucleated RBC % 0, Differential Comment SCANNED, Sodium 134 L, Potassium 3.9, Chloride 104, Carbon Dioxide 20.0 L, Anion Gap 10, BUN 24 H, Creatinine 2.19 H, Estim Creat Clear Calc 35.90, Est GFR (MDRD) Af Amer 38 L, Est GFR (MDRD) Non-Af 32 L, BUN/Creatinine Ratio 11.0, Glucose 183 H, Calcium 8.8 01/25/23 17:35: Lactic Acid 1.6 01/26/23 05:50: WBC 8.3, RBC 4.18 L, Hgb 12.4 L, Hct 37.3 L, MCV 89.2, MCH 29.7, MCHC 33.2, RDW Std Deviation 43.0, RDW Coeff of Rahat 13.2, Plt Count 109 L, MPV 11.1, Immature Gran % (Auto) 0.400, Neut % (Auto) 79.5 H, Lymph % (Auto) 8.7 L, [place] % (Auto) 10.6 H, Eos % (Auto) 0.6, Baso % (Auto) 0.2, Absolute Neuts (auto) 6.6, Absolute Lymphs (auto) 0.72 L, Nucleated RBC % 0, PT 16.2 H, INR 1.3, Sodium 135 L, Potassium 3.8, Chloride 107, Carbon Dioxide 22.0, Anion Gap 6, BUN 22 H, Creatinine 2.22 H, Estim Creat Clear Calc 35.42, Est GFR (MDRD) Af Amer 38 L, Est GFR (MDRD) Non-Af 31 L, BUN/Creatinine Ratio 9.9 L, Glucose 137 H, Calcium 7.9 L Radiology Impression Abdomen/Pelvis CT 01/25/23 17:22 IMPRESSION: Mild right hydroureteronephrosis with a mid ureteral calculus noted. This has mildly progressed in positioning when compared to prior. Cholelithiasis without evidence for cholecystitis. Hepatic steatosis. Electronically Signed: Pavan Hopkins MD at 18:13 EDT ,
--- NOTE | 2023-01-26 07:43 | EKG12_ITS ---
Test Reason : PRE OP Blood Pressure : / mmHG Vent. Rate : 067 BPM Atrial Rate : 067 BPM P-R Int : 194 ms QRS Dur : 098 ms QT Int : 398 ms P-R-T Axes : 013 -29 -19 degrees QTc Int : 420 ms Normal sinus rhythm Incomplete right bundle branch block Inferior infarct (cited on or before 08-SEP-2021) Abnormal ECG When compared with ECG of 08-SEP-2021 17:33, Nonspecific T wave abnormality, improved in Anterolateral leads Confirmed by HILTON MARTINEZ, PRECIOUS ([id number]), film and video editor JULISA SMITH ([id number]) on 02/02/2023 11:31:00 AM Referred By: Confirmed By:PRECIOUS CANELA MD
[2023-01-26 09:00] VITALS: RESP 18
--- NOTE | 2023-01-26 09:00 | CASEMGMT ---
[facility], given at this time.
[2023-01-26 09:31] VITALS: BP 130/77; PULSE 77; RESP 18; TEMP 36.9; O2SAT 98
[2023-01-26] MEDS: 0.9% Saline Lock 10 ML Syringe IV (10:20)
[2023-01-26] MEDS: Lactulose 20 GM/30 ML UDC 30 GM PO (10:20)
--- NOTE | 2023-01-26 10:37 | CASEMGMT ---
Social Work SW performed chart review; ADs not on file. SW met with patient and introduced self and role as [facility] SW. Patient agreeable to speak with SW. SW inquired about completion of AD. Patient confirmed he has completed LW and HCPOA naming his as his HCPOA and son, Titi as the alternate. SW encouraged patient to bring a copy of those documents to be added to patient's file, patient voiced understanding. Mariel Laura MSW, [place]AGAN
[2023-01-26] MEDS: HYDROmorphone 1 MG/ML Syringe IV (11:16)
[2023-01-26] MEDS: Heparin Injection (Vial) 5,000 UNIT/ML VIAL 5000 UNIT SC ×2 (11:44→23:03)
[2023-01-26] MEDS: Ondansetron 4 MG/2 ML Vial IV (11:44)
[2023-01-26] MEDS: LORazepam 2 MG/ML Syringe 0.5 MG IV (14:01)
[2023-01-26] MEDS: oxyCODONE CR 15 MG Tablet PO ×2 (14:04→23:04)
--- NOTE | 2023-01-26 14:43 | CASEMGMT ---
CHERRIE CORNEJO Assessment: Face to Face with pt for initial transition planning/care coordination assessment. RN CM introduced self and role at [facility], pt voices understanding and consents to assessment. Pt is A&O x4 and answers all questions appropriately at this time. Pt lying in bed with at bedside. Care providers, pharmacy, and demographics verified/updated. Admitting Dx: nephrolithiasis PCP:Lisa Specialists:tory Neal; Friend, GI [facility]erred [facility] Insurance: [facility] benefit, [employer] [facility] Prescription Benefit: yes LNOK: Tomeka Obrien, ; Titi Obrien, son Living Arrangements: Pt lives with in a single story home with 3 steps to enter. Pt reports he is I in ADL's and denies concerns at home. Transportation: Pt drives self and denies concerns with transportation. DME:cane, grab bars in the bathroom, [facility] HHC/SNF: Pt has had HHC in the past but cannot recall the name of the agency. Pt denies SNF stays. Pt states no concerns with going home at time of dc. Pt states no further concerns/needs. CM to follow. Advised pt to ask CM if any further question/concerns/needs arise, voices understanding. Pt Goal: Home Plan: Home
--- NOTE | 2023-01-26 16:22 | PN.HOSP_ITS ---
Reason for Visit Reason for Visit: Diagnoses Calculus of kidney (01/25/23) Pain, unspecified (01/25/23) Chills (without fever) (01/25/23) Subjective Subjective Patient was seen and examined today, talked with his who was in the room at the time of my examination, patient is having quite a bit of right flank pain secondary to his ureteral stone, I talked briefly with urology today and they stated they could not take the patient to surgery today, they recommended to continue to medicate the patient for pain and see if he passes the stone. Patient's pain medication was adjusted today and he was placed on Ativan as needed for anxiety. Objective Data Objective Data Vital Signs: Vital Signs Temp Pulse Resp BP Pulse Ox O2 Del Method 98.5 F 77 18 130/77 H 98 Room Air 01/26/23 09:31 01/26/23 09:31 01/26/23 09:31 01/26/23 09:31 01/26/23 09:31 01/26/23 09:31 Oxygen Delivery Method Room Air Weight: 91.6 kg Body Mass Index (BMI) 25.2 Intake & Output: Intake and Output for Last 24 Hours 01/24/23 01/25/23 01/26/23 23:59 23:59 23:59 Intake Total 1050 / 1050 2093.75 / 2093.75 Output Total 950 / 950 Balance 1050 / 1050 1143.75 / 1143.75 Lab / Micro Data 01/26/23 05:50 01/26/23 05:50 Labs: Laboratory Results - last 24 hr 01/25/23 16:30: Urine Color Yellow, Urine Clarity Cloudy, Urine pH 8.0, Ur Specific [place] 1.010, Urine Protein 30 H, Urine Glucose (UA) Normal, Urine Ketones 15 H, Urine Occult Blood 250 H, Urine Nitrite Negative, Urine Bilirubin Negative, Urine Urobilinogen Normal, Ur Leukocyte Esterase 25 H, Urine RBC > 100 SEEN, Urine WBC 0-5 SEEN, Ur Squamous Epith Cells 0-5 SEEN, Amorphous Sediment 1+ PHOS, Urine Bacteria RARE, Urine Mucus 0 SEEN 01/25/23 16:40: WBC 8.9, RBC 4.94, Hgb 15.0, Hct 43.4, MCV 87.9, MCH 30.4, MCHC 34.6, RDW Std Deviation 42.2, RDW Coeff of Rahat 13.1, Plt Count 138 L, MPV 10.5, Immature Gran % (Auto) 0.300, Neut % (Auto) 84.1 H, Lymph % (Auto) 6.0 L, [place] % (Auto) 9.1, Eos % (Auto) 0.3, Baso % (Auto) 0.2, Absolute Neuts (auto) 7.5, Absolute Lymphs (auto) 0.53 L, Nucleated RBC % 0, Differential Comment SCANNED, Sodium 134 L, Potassium 3.9, Chloride 104, Carbon Dioxide 20.0 L, Anion Gap 10, BUN 24 H, Creatinine 2.19 H, Estim Creat Clear Calc 35.90, Est GFR (MDRD) Af Amer 38 L, Est GFR (MDRD) Non-Af 32 L, BUN/Creatinine Ratio 11.0, Glucose 183 H, Calcium 8.8 01/25/23 17:35: Lactic Acid 1.6 01/26/23 05:50: WBC 8.3, RBC 4.18 L, Hgb 12.4 L, Hct 37.3 L, MCV 89.2, MCH 29.7, MCHC 33.2, RDW Std Deviation 43.0, RDW Coeff of Rahat 13.2, Plt Count 109 L, MPV 11.1, Immature Gran % (Auto) 0.400, Neut % (Auto) 79.5 H, Lymph % (Auto) 8.7 L, [place] % (Auto) 10.6 H, Eos % (Auto) 0.6, Baso % (Auto) 0.2, Absolute Neuts (auto) 6.6, Absolute Lymphs (auto) 0.72 L, Nucleated RBC % 0, PT 16.2 H, INR 1.3, Sodium 135 L, Potassium 3.8, Chloride 107, Carbon Dioxide 22.0, Anion Gap 6, BUN 22 H, Creatinine 2.22 H, Estim Creat Clear Calc 35.42, Est GFR (MDRD) Af Amer 38 L, Est GFR (MDRD) Non-Af 31 L, BUN/Creatinine Ratio 9.9 L, Glucose 137 H, Calcium 7.9 L Micro: Microbiology 01/25/23 16:30 Urine, Clean Catch Urine Culture - Preliminary Culture exhibits no growth. Radiography Diagnostic Testing: Radiology Impression Abdomen/Pelvis CT 01/25/23 17:22 IMPRESSION: Mild right hydroureteronephrosis with a mid ureteral calculus noted. This has mildly progressed in positioning when compared to prior. Cholelithiasis without evidence for cholecystitis. Hepatic steatosis. Electronically Signed: Pavan Hopkins MD at 18:13 EDT , Physical Exam Const alert and oriented x3 Constitutional Narrative: Patient appears uncomfortable due to right flank pain and also appears to be anxious General Appearance: cooperative, well kempt and well developed Orientation / Consciousness: awake, oriented to person, oriented to place and oriented to time HEENT normocephalic, head/scalp atraumatic and moist oral mucous membranes Eyes PERRL, EOMs intact bilaterally and conjunctivae normal Neck supple, no JVD, thyroid normal and no carotid bruits General: trachea midline Resp normal respiratory effort, no retractions, no use of accessory muscles and clear to auscultation bilaterally Auscultation: Negative for rales, rhonchi or wheezes Cardio regular rate, regular rhythm, S1 normal heart sound, S2 normal heart sound, no murmurs, no rub and no gallops GI normal to inspection, nondistended, normoactive bowel sounds, soft to palpation, non-tender and non-distended Extremity no clubbing, cyanosis or edema Skin no rashes or lesions noted General Skin Exam: no breakdown Neuro oriented x3, CN's II-XII intact bilaterally, moves all extremities, no focal motor deficits and no sensory deficits noted Sensorium / Orientation: awake, alert, oriented to person, oriented to place and oriented to time Speech: speech normal Psych Psych Narrative: Patient appears anxious at this time Assessment & Plan Assessment/Plan (1) Ureterolithiasis: PLAN: Plan 1. Right ureterolithiasis-again patient will continue on IV fluids and be given IV analgesics, I have elected to administer Toradol as needed-patient's renal functions appear to be affected by some mild right hydroureteronephrosis, renal function will be monitored, patient will remain on IV Dilaudid as needed and he was placed on a low-dose of OxyContin. Patient will continue on IV Rocephin, patient's white count remains normal however #2 acute kidney injury-patient will remain on IV fluids, BMP will be monitored. #3 history of recurrent DVT/VTE-patient is currently on heparin 5000 units every 12 hours, patient Xarelto is being held at this time due to possible surgery tomorrow. Total clinical time spent by myself addressing the patient's medical issues, reviewing all of his data, and collaborating with patient's care team: 25 minutes Charges/Coding Visit Charges Inpatient E&M: 02959 Subs Hosp L1
[2023-01-26 16:41] VITALS: BP 139/79; PULSE 70; RESP 18; TEMP 36.7; O2SAT 98
[2023-01-26 22:57] VITALS: BP 142/81; PULSE 73; RESP 18; TEMP 37.3; O2SAT 95
[2023-01-27] VITALS (10 sets, daily range): BP systolic 123–157; BP diastolic 73–85; PULSE 61–79; RESP 16–18; TEMP 36.6–37.4; O2SAT 92–97; BMI 25.2
[2023-01-27 06:35] LABS: Absolute Lymphocyte Count 0.67 X10^3/uL (0.83-4.51); Basophil# 0.01 X10^3/uL; Basophil% 0.2 % (0-1); Eosinophil# 0.11 X10^3/uL; Eosinophils% 1.7 % (0-5); Hematocrit 37.1 % (40-54); Hemoglobin 12.1 g/dL (13.0-16.5); Lymphocyte # 0.67 X10^3/ul (0.83-4.51); Lymphocyte % 10.3 % (19-41); Mean Corp Hgb Conc 32.6 g/dL (32-36); Mean Corpuscular Hgb 29.8 pg (27.0-32.0); Mean Corpuscular Volume 91.4 fL (80-94); Mean Platelet Vol. 10.9 fl (6.2-12.0); Monocyte# 0.78 X10^3/uL; Monocyte% 11.9 % (0-10); NRBC Flagged by Analyzer 0 % (0-5); Neutrophil # 4.95 X10^3/uL (2.7-7.7); Neutrophil % 75.7 % (47-70); Platelet Count 108 K/mm3 (150-450); RBC Distribution Width CV 13.3 % (11.6-14.6); RBC Distribution Width SD 44.9 fl (35.1-43.9); Red Blood Count 4.06 M/mm3 (4.6-6.2); White Blood Count 6.5 K/mm3 (4.4-11.0)
[2023-01-27 06:51] LABS: Prothrombin Time (Protime)PT. 15.7 SECONDS (11.7-14.9)
[2023-01-27 06:52] LABS: International Normalized Ratio 1.2; Partial Thromboplast Time 40.6 Seconds (24.1-36.2)
[2023-01-27] MEDS: 0.9% Normal Saline (1000mL) 1,000 ML 125 ML IV (06:54)
[2023-01-27] MEDS: HYDROmorphone 1 MG/ML Syringe IV (06:58)
[2023-01-27] MEDS: 0.9% Saline Lock 10 ML Syringe IV ×2 (06:58→07:59)
[2023-01-27 07:15] LABS: Anion Gap 3 (5-15); BUN 17 mg/dL (7-18); BUN/Creat Ratio 8.5 RATIO (10-20); Calcium,Total 7.9 mg/dL (8.5-10.1); Chloride 108 mmol/L (98-107); Creatinine, Serum 1.99 mg/dL (0.70-1.30); EST Glomerular Filtration Rate 35 mL/min (>60); Est Glom Filt Rate - Afr Amer 43 mL/min (>60); Estimated Creatinine Clearance 39.51 ml/min; Glucose 121 mg/dL (74-106); Potassium 4.3 mmol/L (3.5-5.1); Sodium Level 135 mmol/L (136-145)
[2023-01-27] MEDS: oxyCODONE CR 15 MG Tablet PO (07:59)
[2023-01-27] MEDS: Ondansetron 4 MG/2 ML Vial IV (07:59)
[2023-01-27] MEDS: LORazepam 2 MG/ML Syringe 0.5 MG IV (07:59)
[2023-01-27] MEDS: Ketorolac 30 MG/ML Syringe 15 MG IM (08:05)
[2023-01-27] MEDS: Ceftriaxone 1 GM/50 ML BAG IV (09:48)
--- NOTE | 2023-01-27 14:37 | PCM.OPRPT ---
Report of Operation Date of Procedure: 01/27/23 Pre-Operative Diagnosis: Obstructing right ureteral calculi Post-Operative Diagnosis: The same Surgery/Procedure Performed:: Cystoscopy right stent placement, and retrograde pyelogram Description of Surgical Findings:: Patient was taken back to the operating room after induction of general anesthesia, the patient was placed in dorsolithotomy position. The urethra and genitals were prepped and draped in usual sterile fashion. Using a 21 Kisw[place]ili rigid cystourethroscope the entire length of the urethra was normal then went into the bladder. Identified the trigone the left and right ureteral orifice. I then cannulated the Right orifice and advanced a wire up into the kidney. I then backloaded a 5 Kisw[place]ili open ended catheter over the wire and injected contrast to delineate the anatomy. After the retrograde was performed I then used fluoroscopic images and guidance to advanced a wire up into the kidney and over the 0.038 glidewire I advanced a 6 Kisw[place]ili by 26 cm double pigtail stent. I then pulled the 0.038 Glidewire off and the stent coiled in the kidney bladder good position. The bladder was then drained. We confirmed the position of the stent by fluoroscopy. Patient anesthetic was reversed and was taken back to the PACU in good condition. Surgeon: Franklyn Angel Type of Anesthesia: MAC Drains: right stent Estimated Blood Loss (mL): 0 Admit VTE Documentation VTE Present on Admission: No VTE Mechan Device Prophylaxis: SCD's VTE Pharm Prophylaxis ordered?: No
--- NOTE | 2023-01-27 15:59 | PN.HOSP_ITS ---
Reason for Visit Reason for Visit: Diagnoses Calculus of kidney (01/25/23) Calculus of ureter (01/25/23) Pain, unspecified (01/25/23) Chills (without fever) (01/25/23) Subjective Subjective In and examined today, he went to surgery this afternoon for insertion of the stent in the right ureter, patient appeared comfortable this morning when I madan ked with him Objective Data Objective Data Vital Signs: Vital Signs Temp Pulse Resp BP Pulse Ox O2 Del Method 97.8 F 61 18 123/73 H 97 Room Air 01/27/23 15:54 01/27/23 15:54 01/27/23 15:54 01/27/23 15:54 01/27/23 15:54 01/27/23 15:54 Oxygen Delivery Method Room Air Weight: 91.6 kg Body Mass Index (BMI) 25.2 Intake & Output: Intake and Output for Last 24 Hours 01/25/23 01/26/23 01/27/23 23:59 23:59 23:59 Intake Total 1050 / 1050 3893.75 / 4393.75 2352.09 / 2352.09 Output Total 1800 / 2225 1125 / 1125 Balance 1050 / 1050 2093.75 / 2168.75 1227.09 / 1227.09 Lab / Micro Data 01/27/23 05:50 01/27/23 05:50 Labs: Laboratory Results - last 24 hr 01/27/23 05:50: WBC 6.5, RBC 4.06 L, Hgb 12.1 L, Hct 37.1 L, MCV 91.4, MCH 29.8, MCHC 32.6, RDW Std Deviation 44.9 H, RDW Coeff of Rahat 13.3, Plt Count 108 L, MPV 10.9, Immature Gran % (Auto) 0.200, Neut % (Auto) 75.7 H, Lymph % (Auto) 10.3 L, O'Brien % (Auto) 11.9 H, Eos % (Auto) 1.7, Baso % (Auto) 0.2, Absolute Neuts (auto) 5.0, Absolute Lymphs (auto) 0.67 L, Nucleated RBC % 0, PT 15.7 H, INR 1.2, APTT 40.6 H, Sodium 135 L, Potassium 4.3, Chloride 108 H, Carbon Dioxide 24.0, Anion Gap 3 L, BUN 17, Creatinine 1.99 H, Estim Creat Clear Calc 39.51, Est GFR (MDRD) Af Amer 43 L, Est GFR (MDRD) Non-Af 35 L, BUN/Creatinine Ratio 8.5 L, Glucose 121 H, Calcium 7.9 L Micro: Microbiology 01/25/23 16:30 Urine, Clean Catch Urine Culture - Preliminary Physical Exam Const alert, oriented x3, no apparent distress, average body habitus and healthy appearing General Appearance: cooperative, well kempt and well developed Orientation / Consciousness: awake, oriented to person, oriented to place and oriented to time HEENT normocephalic, head/scalp atraumatic and moist oral mucous membranes Eyes PERRL, EOMs intact bilaterally and conjunctivae normal Neck supple, no JVD, thyroid normal and no carotid bruits General: trachea midline Resp normal respiratory effort, no retractions, no use of accessory muscles and clear to auscultation bilaterally Auscultation: Negative for rales, rhonchi or wheezes Cardio regular rate, regular rhythm, S1 normal heart sound, S2 normal heart sound, no murmurs, no rub and no gallops GI normal to inspection, nondistended, normoactive bowel sounds, soft to palpation, non-tender and non-distended Extremity no clubbing, cyanosis or edema Skin no rashes or lesions noted General Skin Exam: no breakdown Neuro oriented x3, CN's II-XII intact bilaterally, moves all extremities, no focal motor deficits and no sensory deficits noted Sensorium / Orientation: awake, alert, oriented to person, oriented to place and oriented to time Speech: speech normal Psych affect normal Assessment & Plan Assessment/Plan (1) Acute kidney injury: (2) Ureterolithiasis: PLAN: Plan 1. Right ureterolithiasis-again patient underwent placement of a right ureteral stent, continue as needed analgesics, patient will be placed on oral antibiotics starting tomorrow morning, he had a dose of IV Rocephin today #2 acute kidney injury-patient will remain on IV fluids, BMP will be monitored. #3 history of recurrent DVT/VTE-patient will resume his Xarelto tomorrow Total clinical time spent by myself addressing the patient's medical issues, reviewing all of his data, and collaborating with patient's care team: 25 minutes Charges/Coding Visit Charges Inpatient E&M: 33352 Subs Hosp L1
--- NOTE | 2023-01-27 16:50 | DCINST_ITS ---
Discharge Instructions Diet Discharge Diet: No restrictions Activity Discharge Activity: Return to Normal Activity Weight Bearing Status: Full weight bearing Follow Up Care Test Results: Test results from this visit will be discussed in further detail at your follow- up appointment, if applicable. Discharge Plan Admission Admit Date/Time: 01/25/23 19:41 Primary Reason for Your Visit: right ureteral stone Attending Provider: Socrates Hsu Primary Care Provider: Ellis Gonzalez Consulting Providers: Franklyn Angel; Ellis Gonzalez Instructions Additional Instructions / Restrictions: You will need to obtain a BMP (a lab test) as an outpatient to recheck your kidney function, your family practitioner can write you a prescription to have this done, this should be drawn the first part of next week. Discharge Orders/Prescriptions Prescriptions: New cephalexin 500 mg Capsule 500 mg PO Q12 Qty: 6 0RF Rx Instructions: Start on 01/28/2023 oxycodone 5 mg tablet 5 mg PO Q6H PRN (Reason: pain) 5 Days Qty: 14 0RF Rx Instructions: 1 or 2 tabs every 6 hours as needed for moderate to severe pain Continued pantoprazole [Protonix] 40 mg tablet,delayed release (DR/EC) 40 mg PO QAM Qty: 90 3RF multivitamin with folic acid 1 TABLET tablet 1 tab PO DAILY Patient Comments: Supplement acetaminophen 500 mg Tablet 1,000 mg PO Q6H PRN (Reason: Pain) Hold Instructions: not currently taking sildenafil 100 mg tablet Patient Comments: TAKE 1 TABLET BY MOUTH EVERY DAY ondansetron 4 mg tablet,disintegrating 4 mg PO Q8H PRN PRN (Reason: Nausea) Qty: 10 0RF tamsulosin [Flomax] 0.4 mg capsule 0.4 mg PO DAILY Qty: 7 0RF Xarelto 20 mg tablet 20 mg PO DAILY@1800 Qty: 1 0RF Rx Instructions: Start on 01/28/2023 Discontinued hydrocodone-acetaminophen 5-325 mg tablet 1 tab PO Q6H PRN PRN (Reason: Pain) 3 Days Qty: 12 0RF Referrals / Follow Up: Franklyn Angel MD [Med Staff - Active Staff] - See Referral Note (as instructed) Ellis Gonzalez MD [Primary Care Provider] - In 1 Week (you will need a BMP drawn to recheck your kidney function) Disposition Disposition (needs filled in before D/C Order can be placed): Home, Self Care
--- NOTE | 2023-01-27 16:57 | PCM.DC.SUM ---
Providers Date of Admission: 01/25/23 Date of Discharge: 01/27/23 Primary Care Physician: Dr. Ellis Gonzalez MD Consultations 01/25/23 21:35 Consult: Urology Routine Consulting Provider: Franklyn Angel Reason for Consult: Nephrolithiasis EMERGENT Consult: Yes MD Notified: Yes Date Notified: 01/25/23 Time Notified: 19:44 Method of Notification: ED Physician Initiated Reason For Visit: NEPHROLITHIASIS Diagnosis Discharge Diagnosis (1) Acute kidney injury: Status: Inactive Code(s): N17.9 - Acute kidney failure, unspecified (2) Ureterolithiasis: Status: Inactive Code(s): N20.1 - Calculus of ureter Plan 1. Right ureterolithiasis-again patient underwent placement of a right ureteral stent, continue as needed analgesics, patient will be placed on oral antibiotics starting tomorrow morning, he had a dose of IV Rocephin today #2 acute kidney injury-patient will remain on IV fluids, BMP will be monitored. #3 history of recurrent DVT/VTE-patient will resume his Xarelto tomorrow Total clinical time spent by myself addressing the patient's medical issues, reviewing all of his data, and collaborating with patient's care team: 25 minutes Medications at Discharge Home Medications multivitamin with folic acid 400 mcg tablet 1 tab PO DAILY multivitam 02/10/16 acetaminophen 500 mg tablet 1,000 mg PO Q6H PRN Pain 09/08/21 sildenafil 100 mg tablet tab 10/09/21 pantoprazole 40 mg tablet,delayed release (Protonix) 40 mg PO QAM stomach #90 tabs 10/28/21 ondansetron 4 mg disintegrating tablet 4 mg PO Q8H PRN PRN Nausea #10 tabs 01/23/23 tamsulosin 0.4 mg capsule (Flomax) 0.4 mg PO DAILY urinating #7 caps 01/23/23 cephalexin 500 mg capsule 500 mg PO Q12 #6 caps 01/27/23 oxycodone 5 mg tablet 5 mg PO Q6H PRN pain 5 days #14 tabs 01/27/23 rivaroxaban 20 mg tablet (Xarelto) 20 mg PO DAILY@1800 see pcp #1 TAB 01/27/23 Hospital Course Operations None Procedures - (Cystoscopy right stent placement and retrograde pyelogram-01/27/23) Summary of Care Provided Minutes Spent on Discharge: 32 Hospital Course: This 72-year-old white male was seen in the emergency room at [facility] with complaints of right flank pain, patient had been seen recently and was diagnosed with a 3 mm stone in the right ureter, he was sent home from the ER with medication and has returned for reevaluation because of more severe pain. Pain was also associated with nausea vomiting and shaking. Labs obtained in the emergency room showed a normal white blood cell count, patient's chemistry panel showed an elevated creatinine at 2.19 and a BUN of 24. Urinalysis showed more than 100 RBCs, there were rare bacteria and urine WBCs were 0-5. Patient had a CT of the abdomen and pelvis performed it showed mild right hydroureteronephrosis with a mid ureteral calculus noted. It had progressed mildly as compared with the prior exam several days ago. Patient also had cholelithiasis without evidence of cholecystitis. Patient was admitted to [place] [address], he was given vigorous IV fluid administration and analgesics, he was seen in consultation by urology, patient failed to pass his ureteral stone spontaneously and he was taken to surgery for right ureteral stent and a retrograde pyelogram. Patient did well after surgery. On 01/27/23, patient was seen and examined: On examination he appeared in good health and spirits. Vital signs as documented. Skin warm and dry and without overt rashes. Neck without JVD, neck was supple, trachea midline, thyroid was normal. Lungs clear bilaterally, normal air movement was noted. Heart exam notable for regular rhythm, normal sounds and absence of murmurs, rubs or gallops. Abdomen unremarkable and without evidence of organomegaly, masses, or abdominal aortic enlargement. Bowel sounds are present, abdomen is not distended. Extremities nonedematous, no cyanosis was noted, no clubbing was noted. Neuro: Cranial nerves II through XII are grossly intact, no focal motor deficits were noted, sensation to light touch and pinprick intact, motor exam 5/5 throughout. Psych: Patient is alert and oriented x3, he does not appear anxious or depressed, he does not appear agitated. Patient appears stable for discharge home on 01/27/23. Weight / BMI Weight Weight: 91.6 kg Body Mass Index (BMI) 25.2 ABG / Lab / Microbiology Data 01/27/23 05:50 01/27/23 05:50 Laboratory: Laboratory Results - last 24 hr 01/27/23 05:50: WBC 6.5, RBC 4.06 L, Hgb 12.1 L, Hct 37.1 L, MCV 91.4, MCH 29.8, MCHC 32.6, RDW Std Deviation 44.9 H, RDW Coeff of Arhat 13.3, Plt Count 108 L, MPV 10.9, Immature Gran % (Auto) 0.200, Neut % (Auto) 75.7 H, Lymph % (Auto) 10.3 L, [place] % (Auto) 11.9 H, Eos % (Auto) 1.7, Baso % (Auto) 0.2, Absolute Neuts (auto) 5.0, Absolute Lymphs (auto) 0.67 L, Nucleated RBC % 0, PT 15.7 H, INR 1.2, APTT 40.6 H, Sodium 135 L, Potassium 4.3, Chloride 108 H, Carbon Dioxide 24.0, Anion Gap 3 L, BUN 17, Creatinine 1.99 H, Estim Creat Clear Calc 39.51, Est GFR (MDRD) Af Amer 43 L, Est GFR (MDRD) Non-Af 35 L, BUN/Creatinine Ratio 8.5 L, Glucose 121 H, Calcium 7.9 L Microbiology: Microbiology 01/25/23 16:30 Urine, Clean Catch Urine Culture - Preliminary D/C Instructions Discharge Diet: No restrictions Weight Bearing Status: Full weight bearing Meaningful Use Info Meaningful Use Diagnoses (Choose all that apply): None applicable Discharge Plan Admission Admit Date/Time: 01/25/23 19:41 Primary Reason for Your Visit: right ureteral stone Attending Provider: Socrates Hsu Primary Care Provider: Ellis Gonzalez Consulting Providers: Franklyn Angel; Ellis Gonzalez Instructions Additional Instructions / Restrictions: You will need to obtain a BMP (a lab test) as an outpatient to recheck your kidney function, your family practitioner can write you a prescription to have this done, this should be drawn the first part of next week. Discharge Orders/Prescriptions Prescriptions: New cephalexin 500 mg Capsule 500 mg PO Q12 Qty: 6 0RF Rx Instructions: Start on 01/28/2023 oxycodone 5 mg tablet 5 mg PO Q6H PRN (Reason: pain) 5 Days Qty: 14 0RF Rx Instructions: 1 or 2 tabs every 6 hours as needed for moderate to severe pain Continued pantoprazole [Protonix] 40 mg tablet,delayed release (DR/EC) 40 mg PO QAM Qty: 90 3RF multivitamin with folic acid 1 TABLET tablet 1 tab PO DAILY Patient Comments: Supplement acetaminophen 500 mg Tablet 1,000 mg PO Q6H PRN (Reason: Pain) Hold Instructions: not currently taking sildenafil 100 mg tablet Patient Comments: TAKE 1 TABLET BY MOUTH EVERY DAY ondansetron 4 mg tablet,disintegrating 4 mg PO Q8H PRN PRN (Reason: Nausea) Qty: 10 0RF tamsulosin [Flomax] 0.4 mg capsule 0.4 mg PO DAILY Qty: 7 0RF Xarelto 20 mg tablet 20 mg PO DAILY@1800 Qty: 1 0RF Rx Instructions: Start on 01/28/2023 Discontinued hydrocodone-acetaminophen 5-325 mg tablet 1 tab PO Q6H PRN PRN (Reason: Pain) 3 Days Qty: 12 0RF Referrals / Follow Up: Franklyn Angel MD [Med Staff - Active Staff] - See Referral Note (as instructed) Ellis Gonzalez MD [Primary Care Provider] - In 1 Week (you will need a BMP drawn to recheck your kidney function) Disposition Disposition (needs filled in before D/C Order can be placed): Home, Self Care Charges/Coding Visit Charges Inpatient E&M: 01893 Disch Hosp >30min
== END 2023-01-27 18:33 | disposition home or self-care (01) | DRG 661 ==
LOC: ED 18:51 → MS3 19:47
PROVIDERS: Anesthesiology; Nurse Practitioner; Urology; Admitting Provider Family Medicine; Emergency Provider Emergency Medicine; PCP Family Medicine; Visit Provider Internal Medicine
PROC: 0T768DZ Dilation of Right Ureter with Intraluminal Device, Via Natural or Artificial Opening Endoscopic (ICD-10-PCS; CPT 52332; principal; 2023-01-27 15:20)
DX: N13.2 Hydronephrosis with renal and ureteral calculous obstruction (principal); N17.9 Acute kidney failure, unspecified; K21.9 Gastro-esophageal reflux disease without esophagitis; K80.20 Calculus of gallbladder without cholecystitis without obstruction; N39.0 Urinary tract infection, site not specified; Z79.01 Long term (current) use of anticoagulants; Z86.718 Personal history of other venous thrombosis and embolism; Z86.711 Personal history of pulmonary embolism
CPT/HCPCS: 36415; 74176; 76000; 80048; 81001; 83605; 85025; 85610; 85730; 87040; 87077; 87086; 87088; 87186; 93005; 99285; J7030; J7120; A4216; C1769; C2617; J2405

== ENCOUNTER → 2023-02-05 | Outpatient (CLI) | payer MEDICARE, SELFPAY ==
[2023-02-05 15:40] LABS: Anion Gap 6 (5-15); BUN 18 mg/dL (7-18); BUN/Creat Ratio 13.5 RATIO (10-20); Calcium,Total 9.7 mg/dL (8.5-10.1); Chloride 104 mmol/L (98-107); Creatinine, Serum 1.33 mg/dL (0.70-1.30); EST Glomerular Filtration Rate 56 mL/min (>60); Est Glom Filt Rate - Afr Amer 68 mL/min (>60); Glucose 125 mg/dL (74-106); Potassium 4.2 mmol/L (3.5-5.1); Sodium Level 137 mmol/L (136-145)
== END | disposition home or self-care (01) ==
LOC: MFPLAB 14:08
PROVIDERS: PCP Family Medicine; Visit Provider Family Medicine
DX: N19 Unspecified kidney failure (principal)
CPT/HCPCS: 36415; 80048

== ENCOUNTER → 2023-04-15 | Outpatient (CLI) | payer MEDICARE, SELFPAY | END | disposition home or self-care (01) | PROVIDERS: PCP Family Medicine; Visit Provider Family Medicine | DX: Z00.00 Encounter for general adult medical examination without abnormal findings (principal) ==

== ENCOUNTER → 2023-04-21 | Outpatient (CLI) | payer MEDICARE, SELFPAY ==
[2023-04-21 10:20] LABS: Anion Gap 4 (5-15); BUN 20 mg/dL (7-18); BUN/Creat Ratio 14.4 RATIO (10-20); Calcium,Total 10.1 mg/dL (8.5-10.1); Chloride 106 mmol/L (98-107); Creatinine, Serum 1.39 mg/dL (0.70-1.30); EST Glomerular Filtration Rate 53 mL/min (>60); Est Glom Filt Rate - Afr Amer 64 mL/min (>60); Glucose 146 mg/dL (74-106); Potassium 4.4 mmol/L (3.5-5.1); Sodium Level 139 mmol/L (136-145)
== END | disposition home or self-care (01) ==
LOC: MFPLAB 08:59
PROVIDERS: PCP Family Medicine; Visit Provider Family Medicine
DX: R73.9 Hyperglycemia, unspecified (principal)
CPT/HCPCS: 36415; 80048

== ENCOUNTER → 2023-07-05 | Outpatient (CLI) | payer MEDICARE, SELFPAY ==
--- NOTE | 2023-07-05 15:25 | RAD_ITS ---
INDICATION: KIDNEY PAIN EXAMINATION/TECHNIQUE: X-RAY - XR Abdomen 1 View COMPARISON: None FINDINGS: BOWEL GAS PATTERN: Non-obstructive. No bowel or stomach distention. FREE AIR: Not assessed on a single supine view. ORGANOMEGALY: Not seen. CALCIFICATIONS: No abnormal calcifications observed. Phleboliths are present within the LEFT hemipelvis. LOWER CHEST: No acute pathology. BONES AND SOFT TISSUES: No acute pathology. Osteophyte formation at the disc spaces at multiple levels. RAD/Abdomen Single View IMPRESSION: 1. Non-obstructive bowel gas pattern. 2. No calcifications noted overlying the renal contours. Phleboliths are present pelvis. 3. Lumbar spondylosis. Electronically Signed: Leandro Gutierrez MD at 0:58 EDT ,
== END | disposition home or self-care (01) ==
PROVIDERS: PCP Family Medicine; Referring Provider Family Medicine; Visit Provider Family Medicine
DX: N23 Unspecified renal colic (principal)
CPT/HCPCS: 74018

== ENCOUNTER → 2023-07-24 | Outpatient (CLI) | payer MEDICARE, SELFPAY ==
--- NOTE | 2023-07-24 08:47 | CT_ITS ---
STUDY: CT Abdomen And Pelvis W/O Contrast Injection 07/25/2023 8:06 PM REASON FOR EXAM: Male, 72 years old. Abdominal pain ABD PAIN Individualized dose optimization techniques were used for this CT. COMPARISON: 01.25.23 TECHNIQUE: CT Abdomen And Pelvis W/O Contrast Injection FINDINGS: The visualized portions of the heart are within normal limits. Normal liver. There is a solitary gallstone. Normal spleen. Normal pancreas. Normal bilateral adrenal glands. Non obstructive 2 mm right renal parenchymal stones. There are hypodensities in the left kidney. These are consistent for cysts. No follow up required. Non obstructive 2 mm left renal parenchymal stones. Normal visualized stomach. Normal small intestine. There are multiple colonic diverticula consistent with diverticulosis. The appendix is visualized and appears normal. There is a duodenal diverticulum. This is near the pancreatic head. There are calcifications of the abdominal aorta. This is consistent for atherosclerotic disease. There is NO abdominal aortic aneurysm. Vascular workup can be obtained based on clinical correlation. Normal inferior vena cava. Subcentimeter mesenteric lymph nodes. Normal urinary bladder. There are prostatic calcifications. Normal abdominal wall. There are diffuse degenerative changes of the visualized lumbar spine. CT/Abdomen/Pelvis without Cont IMPRESSION: (NOT LISTED IN ORDER OF SIGNIFICANCE) There are multiple diverticuli of the colon. There is diverticulosis but no radiographic signs for diverticulitis. There is a duodenal diverticulum. This is near the pancreatic head. There is a solitary gallstone. There are bilateral renal calculi. There is no evidence for an obstruction. There is no hydronephrosis. Other findings as above. Electronically Signed: Gonzales Daniels MD at 20:09 EDT ,
== END | disposition home or self-care (01) ==
LOC: CT 08:46
PROVIDERS: PCP Family Medicine; Referring Provider Urology; Visit Provider Urology
DX: R10.9 Unspecified abdominal pain (principal)
CPT/HCPCS: 74176

== ENCOUNTER → 2023-10-21 | Outpatient (CLI) | payer MEDICARE, SELFPAY ==
[2023-10-21 10:38] LABS: Anion Gap 5 (5-15); BUN 16 mg/dL (7-18); BUN/Creat Ratio 12.2 RATIO (10-20); Calcium,Total 9.6 mg/dL (8.5-10.1); Chloride 106 mmol/L (98-107); Cholesterol 148 mg/dL (200); Creatinine, Serum 1.31 mg/dL (0.70-1.30); EST Glomerular Filtration Rate 57 mL/min (>60); Est Glom Filt Rate - Afr Amer 69 mL/min (>60); Glucose 135 mg/dL (74-106); High Density Lipoprotein 38 mg/dL; PSA,Total- Diagnostic 1.24 ng/mL (0.0-4.0); Potassium 4.1 mmol/L (3.5-5.1); Sodium Level 138 mmol/L (136-145); Triglycerides 329 mg/dL; Very Low Density Lipoprotein 66 mg/dL (5-40)
[2023-10-21 10:43] LABS: Hemoglobin A1c 6.1 % (3.8-5.6)
== END | disposition home or self-care (01) ==
LOC: MFPLAB 09:22
PROVIDERS: PCP Family Medicine; Visit Provider Family Medicine
DX: N40.0 Benign prostatic hyperplasia without lower urinary tract symptoms (principal); N28.9 Disorder of kidney and ureter, unspecified; R73.01 Impaired fasting glucose; E78.2 Mixed hyperlipidemia
CPT/HCPCS: 36415; 80048; 80061; 83036; 84153

== ENCOUNTER 2024-04-16 18:09 | Emergency (ER) | payer MEDICARE, SELFPAY ==
[2024-04-16 18:10] VITALS: BP 180/110; PULSE 84; RESP 18; TEMP 36.6; O2SAT 99; BMI 25.4
--- NOTE | 2024-04-16 18:14 | EDS_ITS ---
HPI History of Present Illness Chief Complaint: Flank Pain [facility] Medical History BPH (benign prostatic hyperplasia) Chronic deep vein thrombosis of left femoral vein Cough Dyspnea Fatigue Gastrointestinal hemorrhage Hematuria Hilar adenopathy Hyperglyceridemia Hypokalemia Impotence Left leg DVT Mediastinal adenopathy Mild concentric left ventricular hypertrophy (LVH) Peyronie's disease Pulmonary embolism Right ventricular dilation Rosacea Spleen enlarged Home Medications ?Medication ?Instructions ?Recorded ?Last Taken ?Type multivitamin with folic acid 400 1 tab PO DAILY multivitam 02/10/16 09/08/21 08:30 History mcg tablet acetaminophen 500 mg tablet 1,000 mg PO Q6H PRN Pain 09/08/21 09/07/21 22:00 History pantoprazole 40 mg tablet,delayed 40 mg PO QAM stomach #90 tabs 10/28/21 Unknown Rx release (Protonix) rivaroxaban 20 mg tablet (Xarelto) 20 mg PO DAILY@1800 see pcp #1 TAB 01/27/23 09/07/21 Rx oxycodone 5 mg tablet 5 mg PO Q6H PRN pain 4 days #16 04/16/24 Unknown Rx tabs Allergy/AdvReac Type Severity Reaction Status Date / Time gemfibrozil (From Lopid) Allergy Severe Unknown Verified 04/16/24 18:10 niacin (From Niaspan Allergy Severe Unknown Verified 04/16/24 18:10 Extended-Release) acetaminophen (From Vicodin) AdvReac Other Verified 04/16/24 18:10 hydrocodone (From Vicodin) AdvReac Other Verified 04/16/24 18:10 rosuvastatin (From Crestor) AdvReac Nausea Verified 04/16/24 18:10 Family History Brother Heart disease A-fib Sister DVT (deep venous thrombosis) Surgical History History of back surgery History of colonoscopy (~05/2019) History of hernia repair History of left knee surgery History of right knee surgery History of shoulder surgery Social History household members: spouse Smoking Status: Never smoker Electronic Cigarette Use: not used second hand exposure: No alcohol intake: never substance use type: does not use caffeine: Yes what type of physical activity do you participate in: walking frequency: 3-4 times per week duration: 15-30 minutes/day seatbelt use: always EXAM Physical Exam Const Vital Signs: 04/16/24 18:10 04/16/24 19:12 Temperature 97.9 F 98.8 F Temperature Source Temporal Oral Pulse Rate 84 67 Respiratory Rate 18 16 Blood Pressure 180/110 H 142/89 H Blood Pressure Mean 133 106 Pulse Ox 99 97 Oxygen Delivery Method Room Air Room Air [facility] [place] Narr[place] Medical decision making narrative: HISTORY OF PRESENT ILLNESS: 73-year-old male presents with right flank pain that started afternoon. He notes hematuria on Wednesday. He further states feels like prior kidney stone. Denies vomiting. Denies chest pain. Denies family present connective diseases or aneurysms. REVIEW OF SYSTEMS: Pertinent positives: Flank pain, hematuria Pertinent negatives: Chest pain, shortness of breath, syncope PHYSICAL EXAM: Nursing triage notes reviewed, Vital signs reviewed Constitutional: please see mdm HENT: MMM Eyes: Pupils equal round and reactive to light, Extraocular muscles intact Neck: No stridor, no JVD, full neck ROM Lungs: Clear to auscultation, No wheezing or rales. No increased work of breathing, no conversational dyspnea, no accessory muscle use, no nasal flaring. No respiratory distress noted Heart: Regular rate and rhythm, No murmurs, No rubs and No gallops, 2+ distal pulses (radial, femoral, posterior tibial) in all extremities Abdomen: Soft, there is no tenderness, rigidity, rebound or guarding, no obvious peritoneal signs, no palpable pulsatile abdominal masses, no auscultated abdominal bruit : No CVAT Extremities: No edema Neuro: No new focal neurological deficits, cranial nerves II through XII intact, 5/5 strength in all present extremities. Intact sensation to light touch in all present extremities, 2+ reflexes bilateral patella tendons. Skin: No rash or lesions noted MEDICAL DECISION MAKING: Chief Complaint: Flank pain External records reviewed: Reviewed prior allergies, problem list, vital signs, current medications. Noted the patient is on Xarelto Factors affecting care: DVT on Xarelto Social determinants of health: none History obtained from others: none Consults: none [facility] Narrative: The patient was initially hypertensive blood pressure 180/110 otherwise afebrile and nontoxic-appearing. Exam I considered the following differential diagnosis: Nephrolithiasis, pyelonephritis, AAA, musculoskeletal etiology, UTI I obtained a broad lab and imaging workup to further elucidate etiology patient complaints. Initial treat the patient with 4 mg of IV morphine, 4 mg of IV Zofran and 500 cc bolus of normal saline. ALL IMAGES (IF OBTAINED) HAVE BEEN PERSONALLY REVIEWED AND INTERPRETED BY MYSELF. CBC without leukocytosis, severe anemia, no thrombocytopenia BMP baseline CKD, no significant electrolyte abnormalities, no endorgan hypoperfusion or metabolic acidosis LFTs show no evidence of hepatobiliary pathology. Urine with hematuria CT scan of the abdomen pelvis contrast read and reviewed and interpreted myself showed a distal 3 mm calculus. Radiology agrees with my interpretation. The synthesis the patient's history, physical exam, labs images suggest nephrolithiasis and hydronephrosis of the etiology of the patient's complaints. The stone is distal and relatively small should pass on its own. Will provide oral narcotic pain medicine, nausea medicine. Strict return precautions were discussed. The patient and/or family, caregivers express understanding. The patient and/or family, caregivers agrees with the plan. Shared decision making: I will have a discussion with the patient and or visitors regarding risk/benefits of further testing or admission. They will be made aware of of the risk/benefits inherent in this decision they will be given the opportunity to voice understanding. Total critical care time today provided was at least 0 minutes. This excludes separately billable procedures. Critical care time (if documented) is secondary to the patient having high probability of clinically significant/life threatening deterioration in the patient's condition which required my urgent intervention. Impression: 1. Right flank pain 2. Nephrolithiasis 3. Hydronephrosis Dispo: Discharge home This note was generated with [employer] dictation software. It may contain incorrect words, spelling, and punctuation that were not noted in review of the chart prior to signing. Lab Data Labs: Laboratory Results - last 24 hr 04/16/24 04/16/24 18:20 18:47 WBC 6.2 RBC 5.28 Hgb 15.5 Hct 47.1 MCV 89.2 MCH 29.4 MCHC 32.9 RDW Std Deviation 42.5 RDW Coeff of Rahat 13.0 Plt Count 169 MPV 10.7 Immature Gran % (Auto) 0.500 Neut % (Auto) 65.1 Lymph % (Auto) 20.6 [place] % (Auto) 10.9 H Eos % (Auto) 2.1 Baso % (Auto) 0.8 Absolute Neuts (auto) 4.1 Absolute Lymphs (auto) 1.28 Nucleated RBC % 0 Sodium 139 Potassium 3.8 Chloride 105 Carbon Dioxide 29.0 Anion Gap 5 BUN 22 H Creatinine 1.62 H Estim Creat Clear Calc 47.81 Est GFR (MDRD) Af Amer 54 L Est GFR (MDRD) Non-Af 45 L BUN/Creatinine Ratio 13.6 Glucose 174 H Calcium 9.7 Total Bilirubin 0.70 Direct Bilirubin 0.17 AST 19 ALT 31 Alkaline Phosphatase 86 Total Protein 7.5 Albumin 4.0 Globulin 3.5 Urine Color Yellow Urine Clarity Cloudy Urine pH 6.0 Ur Specific [place] 1.025 Urine Protein 30 H Urine Glucose (UA) Normal Urine Ketones Negative Urine Occult Blood 250 H Urine Nitrite Negative Urine Bilirubin Negative Urine Urobilinogen Normal Ur Leukocyte Esterase 25 H Urine RBC > 100 SEEN Urine WBC 10-25 SEEN Ur Squamous Epith Cells 0-5 SEEN Urine Bacteria 2+ Urine Mucus 1+ Radiography Diagnostic Testing: Clinical Impression(s) from Imaging Studies Abdomen/Pelvis CT 04/16/24 18:33 IMPRESSION: (NOT LISTED IN ORDER OF SIGNIFICANCE) Bilateral nonobstructive stones. Moderate right hydronephroureter caused by a 3 mm distal ureteral stone. Other findings as above. Electronically Signed: Gonzales Daniels MD at 19:34 EST Reading Location ID and State: [facility] [place] / [place] , Service support , Discharge Plan Triage Chief Complaint: Flank Pain ED Provider: Paul Lundberg Dx/Rx/DC Orders Clinical Impression: Nephrolithiasis Instructions: ED Kidney Stone with Pain Prescriptions: New oxycodone 5 mg tablet 5 mg PO Q6H PRN (Reason: pain) 4 Days Qty: 16 0RF No Action pantoprazole [Protonix] 40 mg tablet,delayed release (DR/EC) 40 mg PO QAM Qty: 90 3RF multivitamin with folic acid 1 TABLET tablet 1 tab PO DAILY Patient Comments: Supplement acetaminophen 500 mg Tablet 1,000 mg PO Q6H PRN (Reason: Pain) Xarelto 20 mg tablet 20 mg PO DAILY@1800 Qty: 1 0RF Rx Instructions: Start on 01/28/2023 Primary Care Provider: Ellis Gonzalez Referrals: Ellis Gonzalez MD [Primary Care Provider] - Print Language: Turkish
--- NOTE | 2024-04-16 18:33 | CT_ITS ---
STUDY: CT Abdomen And Pelvis W/O Contrast Injection 04/16/2024 7:30 PM REASON FOR EXAM: Male, 73 years old. Abdominal pain Right flank pain Individualized dose optimization techniques were used for this CT. COMPARISON: 07.24.23 TECHNIQUE: CT Abdomen And Pelvis W/O Contrast Injection FINDINGS: The visualized portions of the heart are within normal limits. Normal liver. There is a solitary gallstone. Normal spleen. Normal pancreas. Normal bilateral adrenal glands. Non obstructive 2 mm right renal parenchymal stones. Non obstructive 2 mm left renal parenchymal stones. There are hypodensities in the left kidney. These are consistent for cysts. No follow up required. Moderate right hydronephroureter caused by a 3 mm distal ureteral stone. Normal visualized stomach. Normal small intestine. There are multiple colonic diverticula consistent with diverticulosis. The appendix is visualized and appears normal. There are calcifications of the abdominal aorta. This is consistent for atherosclerotic disease. There is NO abdominal aortic aneurysm. Vascular workup can be obtained based on clinical correlation. Normal inferior vena cava. Duodenal diverticulum. Normal urinary bladder. There are prostatic calcifications. There is an umbilical hernia containing fat. There are diffuse degenerative changes of the visualized lumbar spine. Degenerative findings of the hips. CT/Abdomen/Pelvis without Cont IMPRESSION: (NOT LISTED IN ORDER OF SIGNIFICANCE) Bilateral nonobstructive stones. Moderate right hydronephroureter caused by a 3 mm distal ureteral stone. Other findings as above. Electronically Signed: Gonzales Daniels MD at 19:34 EST ,
[2024-04-16] MEDS: Morphine 4 MG/ML Syringe IV (18:38)
[2024-04-16] MEDS: Ketorolac 15 MG/ML Vial IV (18:38)
[2024-04-16] MEDS: Ondansetron 4 MG/2 ML Vial IV (18:38)
[2024-04-16 18:42] LABS: Absolute Lymphocyte Count 1.28 X10^3/uL (0.83-4.51); Absolute Neutrophil Count 4.1 X10^3/uL (2.0-7.7); Basophil# 0.05 X10^3/uL; Basophil% 0.8 % (0-1); Eosinophil# 0.13 X10^3/uL; Eosinophils% 2.1 % (0-5); Hematocrit 47.1 % (40-54); Hemoglobin 15.5 g/dL (13.0-16.5); Lymphocyte # 1.28 X10^3/ul (0.83-4.51); Lymphocyte % 20.6 % (19-41); Mean Corp Hgb Conc 32.9 g/dL (32-36); Mean Corpuscular Hgb 29.4 pg (27.0-32.0); Mean Corpuscular Volume 89.2 fL (80-94); Mean Platelet Vol. 10.7 fl (6.2-12.0); Monocyte# 0.68 X10^3/uL; Monocyte% 10.9 % (0-10); NRBC Flagged by Analyzer 0 % (0-5); Neutrophil # 4.05 X10^3/uL (2.7-7.7); Neutrophil % 65.1 % (47-70); Platelet Count 169 K/mm3 (150-450); RBC Distribution Width SD 42.5 fl (35.1-43.9); Red Blood Count 5.28 M/mm3 (4.6-6.2); White Blood Count 6.2 K/mm3 (4.4-11.0)
[2024-04-16 18:57] LABS: Color, Urine Yellow (Yellow); Glucose, Dipstick Normal (Normal); Ketone-Dipstick Negative (Negative); Leukocyte Esterase-Dipstick 25 /ul (Negative); Nitrite-Dipstick Negative (Negative); Occult Blood-Urine 250 /ul (Negative); Protein-Dipstick 30 mg/dl (Negative); Specific Gravity, Urine 1.025 (1.002-1.030); Urine Bilirubin Dipstick Negative (Negative); Urine Clarity Cloudy (Clear); Urine Urobilinogen Normal (Normal)
[2024-04-16 19:05] LABS: AST(SGOT) 19 U/L (15-37); Alanine Aminotransfer ALT/SGPT 31 U/L (16-61); Alkaline Phosphatase 86 U/L (45-117); Anion Gap 5 (5-15); BUN 22 mg/dL (7-18); BUN/Creat Ratio 13.6 RATIO (10-20); Bilirubin, Direct 0.17 mg/dL (0.00-0.30); Calcium,Total 9.7 mg/dL (8.5-10.1); Chloride 105 mmol/L (98-107); Creatinine, Serum 1.62 mg/dL (0.70-1.30); EST Glomerular Filtration Rate 45 mL/min (>60); Est Glom Filt Rate - Afr Amer 54 mL/min (>60); Estimated Creatinine Clearance 47.81 ml/min; Globulin 3.5 g/dL (2.2-4.2); Glucose 174 mg/dL (74-106); Potassium 3.8 mmol/L (3.5-5.1); Protein, Total 7.5 g/dL (6.4-8.2); Sodium Level 139 mmol/L (136-145)
[2024-04-16 19:05] LABS: Bacteria 2+ /hpf (None Seen); Mucous, Urine 1+ /hpf (<or=2+); Red Blood Cells-Urine > 100 SEEN /hpf (0-5); Squamous Epithelial Cells - UA 0-5 SEEN /hpf (0-5); White Blood Cells 10-25 SEEN /hpf (0-5)
[2024-04-16 19:12] VITALS: BP 142/89; PULSE 67; RESP 16; TEMP 37.1; O2SAT 97
[2024-04-16 19:55] VITALS: BP 102/67; PULSE 62; RESP 19; TEMP 37.1; O2SAT 96
== END 2024-04-16 20:00 | disposition home or self-care (01) ==
PROVIDERS: Emergency Provider Emergency Medicine; PCP Family Medicine; Visit Provider Emergency Medicine
DX: N13.2 Hydronephrosis with renal and ureteral calculous obstruction (principal); R11.0 Nausea; R31.9 Hematuria, unspecified; Z87.442 Personal history of urinary calculi; Z86.711 Personal history of pulmonary embolism; Z86.718 Personal history of other venous thrombosis and embolism
CPT/HCPCS: 74176; 80048; 80076; 81001; 85025; 96374; 96375; 99283; A4216; J2405

== ENCOUNTER → 2024-06-22 | Outpatient (CLI) | payer MEDICARE, SELFPAY ==
[2024-06-22 14:04] LABS: Anion Gap 9 (5-15); BUN 16 mg/dL (4-19); BUN/Creat Ratio 12.7 RATIO (10-20); Calcium 9.9 mg/dL (7.6-11.0); Carbon Dioxide 25.6 mmol/L (22.0-29.0); Chloride 104 mmol/L (96-108); Creatinine, Serum 1.2 mg/dL (0.8-1.3); EST Glomerular Filtration Rate 61 (>60); Glucose 133 mg/dL (70-99); PSA,Total - Annual Screen 1.34 ng/mL (0.02-4.00); Potassium 4.5 mmol/L (3.3-5.1); Sodium Level 138 mmol/L (133-145)
[2024-06-22 14:23] LABS: Cholesterol 161 mg/dL (<=200); High Density Lipoprotein 38 mg/dL; Low Density Lipoprotein Calc. 60 mg/dL; Triglycerides 317 mg/dL; Very Low Density Lipoprotein 63 mg/dL (5-40); cholesterol:hdl ratio screen 4.27
== END | disposition home or self-care (01) ==
LOC: MFPLAB 09:37
PROVIDERS: PCP Family Medicine; Referring Provider Family Medicine; Visit Provider Family Medicine
DX: Z13.6 Encounter for screening for cardiovascular disorders (principal); Z12.5 Encounter for screening for malignant neoplasm of prostate; N28.9 Disorder of kidney and ureter, unspecified
CPT/HCPCS: 36415; 80048; 80061; 84153; G0103

== ENCOUNTER → 2025-01-19 | Outpatient (CLI) | payer MEDICARE, SELFPAY ==
[2025-01-19 10:40] LABS: Anion Gap 10 (5-15); BUN 17 mg/dL (4-19); BUN/Creat Ratio 14.2 RATIO (10-20); Calcium,Total 9.3 mg/dL (7.6-11.0); Carbon Dioxide 23.4 mmol/L (21.0-32.0); Chloride 105 mmol/L (98-108); Glucose 147 mg/dL (70-99); Potassium 4.1 mmol/L (3.3-5.1)
== END | disposition home or self-care (01) ==
LOC: MFPLAB 08:42
PROVIDERS: PCP Family Medicine; Referring Provider Family Medicine; Visit Provider Family Medicine
DX: N28.9 Disorder of kidney and ureter, unspecified (principal)
CPT/HCPCS: 36415; 80048

== ENCOUNTER → 2025-03-19 | Outpatient (CLI) | payer MEDICARE, SELFPAY ==
[2025-03-19 11:25] LABS: Anion Gap 12 (5-15); BUN 20 mg/dL (4-19); BUN/Creat Ratio 14.4 RATIO (10-20); Calcium,Total 9.5 mg/dL (7.6-11.0); Carbon Dioxide 24.9 mmol/L (21.0-32.0); Chloride 104 mmol/L (98-108); Glucose 144 mg/dL (70-99); Potassium 4.5 mmol/L (3.3-5.1)
== END | disposition home or self-care (01) ==
LOC: MFPLAB 09:20
PROVIDERS: PCP Family Medicine; Visit Provider Family Medicine
DX: N28.9 Disorder of kidney and ureter, unspecified (principal)
CPT/HCPCS: 36415; 80048